=== PATIENT | female | born 1990 | race Caucasian/White ===

== ENCOUNTER 2016-05-26 17:32 | Emergency (ER) | payer MEDICARE, MEDICAID ==
[~2016-05-26] VITALS: Ht 165.1 cm; Wt 95.3 kg
[2016-05-26] MEDS ORDERED: OMEP20CA12 PO (18:01)
[2016-05-26] MEDS ORDERED: POLY17PO6 PO (18:01)
[2016-05-26] MEDS ORDERED: DOCU100C37 PO (18:01)
[2016-05-26] MEDS ORDERED: CETI10TA20 PO (18:04)
[2016-05-26] MEDS ORDERED: MELA3TAB PO (18:04)
[2016-05-26] MEDS ORDERED: CYAN1TAB26 PO (18:04)
--- NOTE | 2016-05-26 18:18 | ED Abdominal Pain ---
General Chief Complaint: Abdominal/GI Problems Stated Complaint: CP Nursing Triage Note: AMBULATED TO ROOM 03 WITH COMPLAINTS OF EPIGASTRIC PAIN X1 HR THAT SOMETIMES GOES INTO BACK. 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 Sepsis Screen: No Definite Risk (BRENDAN LEWIS) History of Present Illness Time Seen By Provider: 17:55 Initial Comments Pt and caregiver report of episode of tachycardia and palpitations prior to arrival. She calmed down after being distracted with reading the paper. She has had 2 recent deaths in her family and experiencing more anxiety. She has been under the care of [facility] for the last month. She has a 24-hour caregiver support. Timing/Duration: 1 Hour Severity/Quality: Mild Location: Epigastric Radiation: No Radiation Activities at Onset: Emotional Stress Modifying Factors: Improves With Other (distraction) Associated Symptoms: Denies Symptoms (BRENDAN LEWIS) Allergies and Home Medications Allergies Coded Allergies: No Known Drug Allergies (Unverified , 05/26/16) Home Medications Cetirizine HCl 10 Mg Tablet 10 MG PO DAILY (Reported) Cyanocobalamin/Folic Acid 1 Each Tablet 1 EACH PO DAILY (Reported) Docusate Sodium 100 Mg Capsule 100 MG PO BID (Reported) Melatonin 3 Mg Tablet 3 MG PO HS (Reported) Omeprazole 20 Mg Capsule.dr 20 MG PO DAILY (Reported) Polyethylene Glycol 3350 17 Gm Powd.pack 17 GM PO DAILY (Reported) Review of Systems Constitutional: no symptoms reported see HPI EENTM: No Symptoms Reported See HPI Respiratory: No Symptoms Reported See HPI Cardiovascular: See HPI Palpitations Gastrointestinal: No Symptoms Reported See HPI Genitourinary: No Symptoms Reported See HPI Musculoskeletal: no symptoms reported see HPI Skin: no symptoms reported see HPI Psychiatric/Neurological: See HPI Anxiety Endocrine: No Symptoms Reported See HPI Hematologic/Lymphatic: No Symptoms Reported See HPI (BRENDAN LEWIS) All Other Systems Reviewed Negative Unless Noted: Yes (BRENDAN LEWIS) Past Jqqaklt-Unbknv-Vtgdqo Hx Patient Social History Recent Foreign Travel: No Contact w/Someone Who Travel: No Recent Infectious Disease Expo: No Recent Hopitalizations: No (BRENDAN LEWIS) Surgeries HX Surgeries: Yes Surgeries: Orthopedic (BRENDAN LEWIS) Respiratory Hx Respiratory Disorders: No (BRENDAN LEWIS) Neurological Hx Neurological Disorders: No (BRENDAN LEWIS) Reproductive System Hx Reproductive Disorders: 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 (BRENDAN LEWIS) Genitourinary Hx Genitourinary Disorders: No (BRENDAN LEWIS) Gastrointestinal Hx Gastrointestinal Disorders: Yes Gastrointestinal Disorders: Gastroesophageal Reflux (BRENDAN LEWIS) HEENT HX ENT Disorders: No (BRENDAN LEWISP) Cancer Hx Cancer: No (BRENDAN LEWISP) Psychosocial Hx Psychiatric Problems: Yes (EXPLOSIVE DISORDER, SLIGHT MR) Behavioral Health Disorders: Bipolar, Personality Disorder (BRENDAN LEWISP) Reviewed Nursing Assessment Reviewed/Agree w Nursing PMH: Yes (BRENDAN LEWISP) Physical Exam Vital Signs VS - Last 72 Hours, by Label 05/26/16 05/26/16 17:46 18:23 Temp 97.0 Pulse 96 91 Resp 18 18 B/P 133/85 Pulse Ox 99 97 (RANDI WILSON MD) Vital Signs Capillary Refill : Less Than 3 Seconds (BRENDAN LEWISP) General Appearance: WD/WN no apparent distress HEENT: PERRL/EOMI normal ENT inspection TMs normal pharynx normal Neck: non-tender full range of motion supple normal inspection Respiratory: chest non-tender lungs clear normal breath sounds no respiratory distress Cardiovascular: normal peripheral pulses regular rate, rhythm no murmur Gastrointestinal: normal bowel sounds non tender soft no organomegaly no pulsatile massNo distended, No guarding, No tenderness Extremities: normal range of motion non-tender normal inspection no pedal edema no calf tenderness normal capillary refill Back: normal inspection no CVA tenderness Neurologic/Psychiatric: no motor/sensory deficits alert normal mood/affect Skin: normal color warm/dry Lymphatic: no adenopathy (BRENDAN LEWIS) Progress/Results/Core Measures Results/Orders Vital Signs/I&O Vital Sign - Last 12Hours 05/26/16 05/26/16 17:46 18:23 Temp 97.0 Pulse 96 91 Resp 18 18 B/P 133/85 Pulse Ox 99 97 (RANDI WILSON MD) Blood Pressure Mean: 101 ECG EKG : EKG Time: 18:01 Rate: 87 Rhythm: Normal Sinus Intervals: Normal, MA (136), QRS (90), QT (376) Intervals [place]: P 18; QRS 24; T 28 ECG Comparisson: No Previous ECG Available ECG Impression: Normal Comment Reviewed with Dr. Pritchard, agrees with interpretation. (BRENDAN LEWIS) EKG : Comment 05/26/16, 1801. NSR, nl axis, no STEMI. no previous for comparison. (RANDI WILSON MD) Departure Impression Impression: Primary Impression: Heart palpitations Additional Impression: Anxiety Disposition: 01 HOME, SELF-CARE Condition: Stable Departure-Patient Inst. Decision time for Depature: 18:05 (BRENDAN LEWIS) Referrals: HIGINIO ENGEL MD (PCP/Family) Primary Care Physician Patient Instructions: Anxiety, Adult (DC), Palpitations (DC) Add. Discharge Instructions: All discharge instructions reviewed with patient and/or family. Voiced understanding. See Dr. Hopkins next week, if continued problems. See Mental Health later this month. Seek distraction activities to avoid or treat anxiety attacks. Copy Copies To 1: HIGINIO ENGEL MD, AMY ARNP May 26, 2016 18:18 RANDI WILSON MD May 29, 2016 09:01
[2016-05-26 18:23] VITALS: BP 127/81
== END 2016-05-26 18:23 | disposition home or self-care (01) ==
LOC: EDUNIT# 17:32 → ER 17:33
DX: R00.2 Palpitations (principal); F41.9 Anxiety disorder, unspecified
CPT/HCPCS: 93005; 99282

== ENCOUNTER → 2018-05-22 | Outpatient (CLI) | payer MEDICARE, MEDICAID ==
[~2018-05-22] MED LIST: CETI10TA20 PO; CYAN1TAB26 PO; DOCU100C37 PO; MELA3TAB PO; OMEP20CA12 PO; POLY17PO6 PO
--- NOTE | 2018-05-22 20:30 | Diagnostic Imaging Report ---
EXAM: Limited bilateral breast ultrasound INDICATION: Galactorrhea The previous left breast limited ultrasound exam of 04/27/2016 failed to show any evidence for a discrete solid or cystic mass. On this exam, there is no solid or cystic mass evident in either retroareolar region. The ducts in the retroareolar region do not seem to be abnormally dilated either. If clinical concern regarding an underlying abnormality persists, then mammography would be recommended for further evaluation. IMPRESSION: 1. There is no evidence for malignancy or for any abnormality to account for the patient's symptoms. 2. If clinical concern regarding an underlying abnormality persists and further imaging is desired, then MRI would be recommended. ACR BI-RADS Category 1: Negative. Result letter will be mailed to the patient. Note: At least 10% of breast cancer is not imaged by mammography. Dictated by: Dictated on workstation # [id number]
== END ==
LOC: RAD 13:13
PROVIDERS: ATTEND Family Medicine
DX: N64.3 Galactorrhea not associated with childbirth (principal)
CPT/HCPCS: 76642

== ENCOUNTER → 2019-01-21 | Outpatient (CLI) | payer MEDICARE, MEDICAID ==
[~2019-01-21] MED LIST changes: -OMEP20CA12 PO; +OMEP20CA13 PO
--- NOTE | 2019-01-21 19:05 | Diagnostic Imaging Report ---
EXAMINATION: Right elbow radiographs, 3 views. COMPARISON: None. HISTORY: 28-year-old female, injury. Right elbow pain. FINDINGS: There is film artifact present. There is no elbow joint effusion. There is no elbow joint dislocation currently. There is no identified acute fracture. IMPRESSION: No acute bony abnormality of the right elbow. Dictated by: Dictated on workstation # [id number]
--- NOTE | 2019-01-21 19:06 | Diagnostic Imaging Report ---
EXAMINATION: Right wrist radiographs, 3 views. COMPARISON: None. HISTORY: 28-year-old female, injury. Right wrist pain. FINDINGS: There is no identified acute fracture. Bone mineralization and alignment is unremarkable. There is no radiopaque foreign body. The joint spaces are well preserved. IMPRESSION: No identified acute bony abnormality at the level of the right wrist. Dictated by: Dictated on workstation # [id number]
--- NOTE | 2019-01-21 19:07 | Diagnostic Imaging Report ---
EXAMINATION: Right forearm, 2 views. COMPARISON: None. HISTORY: 28-year-old female, right forearm pain. Injury. FINDINGS: There is film artifact present. There is no identified acute fracture at the level of the forearm. There is no identified radiopaque foreign body. IMPRESSION: No identified acute bony abnormality at the level of the right forearm. Dictated by: Dictated on workstation # [id number]
== END ==
LOC: RAD 17:31
PROVIDERS: ATTEND Nurse Practitioner Family
DX: S59.901A Unspecified injury of right elbow, initial encounter (principal); S59.911A Unspecified injury of right forearm, initial encounter; S69.91XA Unspecified injury of right wrist, hand and finger(s), initial encounter; W19.XXXA Unspecified fall, initial encounter
CPT/HCPCS: 73080; 73090; 73110

== ENCOUNTER 2019-12-07 18:57 | Emergency (ER) | payer MEDICARE, MEDICAID ==
[~2019-12-07] VITALS: Ht 165 cm; Wt 113.6 kg
[~2019-12-07 18:57] MED LIST changes: -CETI10TA20 PO; +CETI10TA21 PO; -MELA3TAB PO; +MELA3TAB39 PO; -OMEP20CA13 PO; +OMEP20CA18 PO
--- OUTSIDE RECORDS SUMMARY | 2019-12-07 19:02 | XMS REPORT | Encounter Summary ---
Author Author [facility] Organization [facility] Address Unknown Phone Unavailable Care Team Providers Care Explosive Ordnance Manager Name Role Phone PCP Unavailable Encounter Details Care Team Description Date Type Department Iqra Armstrong MD [address] [place] [address] [facility] [address] [place] [address] Social History Date Tobacco Use Types Packs/Day Years Used Never Assessed Sex Assigned at Date Recorded Not on file Industry Job Start Date Occupation Not on file Not on file Not on file Travel End Travel History Travel Start No recent travel history available. documented as of this encounter Plan of Treatment Not on filedocumented as of this encounter Procedures Comments Procedure Name Priority Date/Time Associated Diag nosis LIPID PROFILE SG Routine 07/09/2004 8:18 AM ARMY MANAGER DRUG PANEL 7 Routine 07/09/2004 8:18 AM ARMY MANAGER DIFFERENTIAL Routine 07/09/2004 8:18 AM ARMY MANAGER URINE TEST Routine 07/09/2004 8:18 AM ARMY MANAGER URINALYSIS (INCLUDES Routine 07/09/2004 MICROSCOPIC REVIEW, IF 8:18 AM ARMY MANAGER INDICATED) VALPROIC ACID Routine 07/09/2004 8:18 AM ARMY MANAGER THYROID CASCADE Routine 07/09/2004 8:18 AM ARMY MANAGER GLUCOSE Routine 07/09/2004 8:18 AM ARMY MANAGER GAMMA GLUTAMYL Routine 07/09/2004 TRANSFERASE 8:18 AM ARMY MANAGER CREATININE Routine 07/09/2004 8:18 AM ARMY MANAGER COMPLETE BLOOD COUNT Routine 07/09/2004 8:18 AM ARMY MANAGER ALANINE AMINOTRANSFERASE Routine 07/09/2004 8:18 AM ARMY MANAGER documented in this encounter Results * Valproic Acid (07/09/2004 8:18 AM ARMY MANAGER) Valproic Acid 75 50 - 100 UG/ML SUNQUEST Specimen Blood Performing Organization Address [facility] one Number [id number] [place] [phone] SUNQUEST * Creatinine (07/09/2004 8:18 AM ARMY MANAGER) Creatinine 0.6 0.5 - 1.5 MG/DL SUNQUEST Specimen Blood Performing Organization Address [facility] one Number SLRL [id number] [place] [phone] SUNQUEST * DIFFERENTIAL (07/09/2004 8:18 AM ARMY MANAGER) % Neutrophils 48 45 - 78 % SUNQUEST %Lymphocytes 37 15 - 47 % SUNQUEST %Monocytes 8 0 - 12 % SUNQUEST %Eosinophils 6 0 - 7 % SUNQUEST %Basophils 1 0 - 2 % SUNQUEST # Granulocytes 3.4 1.7 - 6.8 TH/UL SUNQUEST # Lymphocytes 2.6 1.0 - 3.3 TH/UL [place] # Monocytes 0.6 0.2 - 0.9 TH/UL [place]QUEST # Eosinophils 0.4 0.0 - 0.4 TH/UL [place] # Basophils 0.1 0.0 - 0.2 TH/UL SUNQUEST Specimen Blood Performing Organization Address [facility] one Number [id number] [place] [phone] SUNQUEST * Complete Blood Count (07/09/2004 8:18 AM ARMY MANAGER) WBC 7.0 4.0 - 11.0 TH/UL SUNQUEST RBC 4.88 4.31 - 5.84 MIL/UL SUNQUEST Hemoglobin 14.8 13.0 - 17.0 G/DL SUNQUEST Hematocrit 42 40 - 50 % SUNQUEST MCV 86 80 - 99 FL SUNQUEST MCH 30 27 - 34 PG SUNQUEST MCHC 35 32 - 36 % SUNQUEST RDW 13.1 <14.5 % SUNQUEST Platelet Count 250 140 - 400 TH/UL SUNQUEST Specimen Blood Performing Organization Address [facility] one Number [id number] [place] [phone] SUNQUEST * Gamma Glutamyl Transferase (07/09/2004 8:18 AM ARMY MANAGER) Gamma Glutamyl 16 15 - 80 IU/L SUNQUEST Transferase Specimen Blood Performing Organization Address [facility] one Number [address]RL [id number] [place] [phone] SUNQUEST * Alanine Aminotransferase (07/09/2004 8:18 AM ARMY MANAGER) Alanine 18 (L) 20 - 60 IU/L SUNQUEST Aminotransferas e Specimen Blood Performing Organization Address [facility] one Number [address]RL [id number] [place] [phone] SUNQUEST * Thyroid [place] (07/09/2004 8:18 AM ARMY MANAGER) Thyroid 3.34 0.35 - 5.50 UIU/ML SUNQUEST Stimulating Hormone Specimen Blood Performing Organization Address [facility] one Number SLRL [id number] [place] [phone] SUNQUEST * Glucose (07/09/2004 8:18 AM ARMY MANAGER) Glucose 75 65 - 100 MG/DL SUNQUEST Specimen Blood Performing Organization Address [facility] one Number SLRL [id number] [place] [phone] SUNQUEST * Lipid Profile Sg (07/09/2004 8:18 AM ARMY MANAGER) Cholesterol 161 <200 MG/DL SUNQUEST Triglycerides 61 <150 MG/DL SUNQUEST HDL Cholesterol 39 (L) >41 MG/DL SUNQUEST Cholesterol/HDL 4.1 <4.5 SUNQUEST Ratio Hours 13 SUNQUEST Postprandial LDL Cholesterol 110 (H) 0 - 99 MG/DL SUNQUEST Specimen Performing Organization Address [facility] one Number [address]RL [id number] [place] [phone] SUNQUEST * Drug Panel 7 (07/09/2004 8:18 AM ARMY MANAGER) Amphetamines NotDetec SUNQUEST Urine Barbiturates NotDetec SUNQUEST Urine Benzodiazepines NotDetec SUNQUEST Urine Cocaine Urine NotDetec SUNQUEST Opiates Urine NotDetec SUNQUEST Phencyclidine NotDetec SUNQUEST Urine Tetrahydrocanna NotDetec SUNQUEST binol Urine Tape N/A SUNQUEST Creatinine 71.3 MG/DL SUNQUEST Urine Random Specimen Urine Performing Organization Address [facility] Ph one Number [id number] [place], [place] [address] SUNQUEST * Urinalysis (07/09/2004 8:18 AM ARMY MANAGER) Appearance, YELLOW SUNQUEST Urine Specific 1.015 <1.030 SUNQUEST [place], UA PH Urine 8.0 5.0 - 8.0 SUNQUEST Hemoglobin NEGATIVE NEGATIVE [place]QUEST Urine Ketones Urine NEGATIVE NEGATIVE SUNQUEST Glucose Urine NEGATIVE NEGATIVE SUN[place] Protein Urine NEGATIVE NEGATIVE SUNQUEST Qual Leukocyte NEGATIVE NEGATIVE [place] Esterase Urobilinogen NEGATIVE NEGATIVE SUNQUEST Urine Bilirubin Urine NEGATIVE NEGATIVE SUNQUEST Specimen Urine Performing Organization Address [facility] Ph one Number [id number] [place], [place] [address] SUNQUEST * Urine Test (07/09/2004 8:18 AM ARMY MANAGER) UCG Urine NEGATIVE SUNQUEST Specimen Urine Performing Organization Address [facility] one Number [facility] [id number] [place], [place] [address] SUNQUEST documented in this encounter Visit Diagnoses Not on filedocumented in this encounter
--- OUTSIDE RECORDS SUMMARY | 2019-12-07 19:02 | XMS REPORT | Clinical Summary ---
Author Author [facility] Organization [facility] Address Unknown Phone Unavailable Care Team Providers Care Digital Sales Manager Name Role Phone PCP Unavailable Allergies Not on File Medications Not on file Active Problems Not on file Social History Date Tobacco Use Types Packs/Day Years Used Never Assessed Sex Assigned at Date Recorded Not on file Industry Job Start Date Occupation Not on file Not on file Not on file Travel End Travel History Travel Start No recent travel history available. Last Filed Vital Signs Not on file Plan of Treatment Not on file Results Not on filefrom Last 3 Months
--- OUTSIDE RECORDS SUMMARY | 2019-12-07 19:02 | XMS REPORT | Encounter Summary ---
Author Author [facility] Organization [facility] Address Unknown Phone Unavailable Care Team Providers Care Horse Show Judge Name Role Phone PCP Unavailable Encounter Details Care Team Description Date Type Department Jessy Warren MD No Forwarding Address 09/02/2004 [facility] al Encounter [address] [place] [address] Social History Date Tobacco Use Types Packs/Day [...] Associated Diag nosis LIPID PROFILE SG Routine 09/02/2004 8:21 AM CDT DRUG PANEL 7 Routine 09/02/2004 8:21 AM CDT DIFFERENTIAL Routine 09/02/2004 8:21 AM CDT URINE TEST Routine 09/02/2004 8:21 AM CDT URINALYSIS AND Routine 09/02/2004 MICROSCOPIC 8:21 AM CDT URINALYSIS (INCLUDES Routine 09/02/2004 MICROSCOPIC REVIEW, IF 8:21 AM CDT INDICATED) THYROID CASCADE Routine 09/02/2004 8:21 AM CDT GLUCOSE Routine 09/02/2004 8:21 AM CDT GAMMA GLUTAMYL Routine 09/02/2004 TRANSFERASE 8:21 AM CDT CREATININE Routine 09/02/2004 8:21 AM CDT COMPLETE BLOOD COUNT Routine 09/02/2004 8:21 AM CDT ALANINE AMINOTRANSFERASE Routine 09/02/2004 8:21 AM CDT documented in this encounter Results * DIFFERENTIAL (09/02/2004 8:21 AM CDT) % Neutrophils 67 45 - 78 % SUNQUEST %Lymphocytes 25 15 - 47 % SUNQUEST %Monocytes 6 0 - 12 % SUNQUEST %Eosinophils 2 0 - 7 % SUNQUEST %Basophils 0 0 - 2 % SUNQUEST # Granulocytes 5.0 1.7 - 6.8 TH/UL SUNQUEST # Lymphocytes 1.9 1.0 - 3.3 TH/UL SUNQUEST # Monocytes 0.5 0.2 - 0.9 TH/UL SUNQUEST # Eosinophils 0.2 0.0 - 0.4 TH/UL SUNQUEST # Basophils 0.0 0.0 - 0.2 TH/UL SUNQUEST Specimen Blood Performing Organization Address [facility] one Number RL [address] [place] [phone] SUNQUEST * Creatinine (09/02/2004 8:21 AM CDT) Creatinine 0.4 (L) 0.5 - 1.5 MG/DL SUNQUEST Specimen Blood Performing Organization Address [facility] one Number [address]RL [id number] [place] [phone] SUNQUEST * Complete Blood Count (09/02/2004 8:21 AM CDT) WBC 7.5 4.0 - 11.0 TH/UL SUNQUEST RBC 4.52 4.31 - 5.84 MIL/UL SUNQUEST Hemoglobin 13.6 13.0 - 17.0 G/DL SUNQUEST Hematocrit 39 (L) 40 - 50 % SUNQUEST MCV 87 80 - 99 FL SUNQUEST MCH 30 27 - 34 PG SUNQUEST MCHC 35 32 - 36 % SUNQUEST RDW 12.9 <14.5 % SUNQUEST Platelet Count 317 140 - 400 TH/UL SUNQUEST Specimen Blood Performing Organization Address [facility] one Number [address]RL [id number] [place] [address] SUNQUEST * Alanine Aminotransferase (09/02/2004 8:21 AM CDT) Alanine 20 20 - 60 IU/L SUNQUEST Aminotransferas e Specimen Blood Performing Organization Address [facility] Ph one Number [id number] [place] [address] SUNQUEST * Gamma Glutamyl Transferase (09/02/2004 8:21 AM CDT) Gamma Glutamyl 17 15 - 80 IU/L SUNQUEST Transferase Specimen Blood Performing Organization Address [facility] one Number [address]RL [id number] [place] [address] SUNQUEST * Thyroid [place] (09/02/2004 8:21 AM CDT) Thyroid 2.39 0.35 - 5.50 UIU/ML SUNQUEST Stimulating Hormone Specimen Blood Performing Organization Address [facility] one Number [address]RL [address] [place] [address] SUNQUEST * Glucose (09/02/2004 8:21 AM CDT) Glucose 79 65 - 100 MG/DL SUNQUEST Specimen Blood Performing Organization Address [facility] one Number [address]RL [address] [place] [address] SUNQUEST * Lipid Profile Sg (09/02/2004 8:21 AM CDT) Cholesterol 157 <200 MG/DL SUNQUEST Triglycerides 68 <150 MG/DL SUNQUEST HDL Cholesterol 49 >41 MG/DL SUNQUEST Cholesterol/HDL 3.2 <4.5 SUNQUEST Ratio LDL Cholesterol 94 0 - 99 MG/DL SUNQUEST Specimen Performing Organization Address [facility] one Number [address]RL [address] [place] [phone] SUNQUEST * Urinalysis (09/02/2004 8:21 AM CDT) Appearance, YELLOW SUNQUEST Urine Specific 1.025 <1.030 SUNQUEST [place], UA PH Urine 6.0 5.0 - 8.0 SUNQUEST Hemoglobin NEGATIVE NEGATIVE SUNQUEST Urine Ketones Urine NEGATIVE NEGATIVE [place]QUEST Glucose Urine NEGATIVE NEGATIVE [place]QUEST Protein Urine NEGATIVE NEGATIVE SUNQUEST Qual Leukocyte POSITIVE (A) NEGATIVE SUNQUEST Esterase Urobilinogen NEGATIVE NEGATIVE SUNQUEST Urine Bilirubin Urine NEGATIVE NEGATIVE SUNQUEST Specimen Urine Performing Organization Address [facility] one Number [address]RL [address] [place], [place] [address] SUNQUEST * Drug Panel 7 (09/02/2004 8:21 AM CDT) Amphetamines NotDetec SUNQUEST Urine Barbiturates NotDetec SUNQUEST Urine Benzodiazepines NotDetec SUNQUEST Urine Cocaine Urine NotDetec SUNQUEST Opiates Urine NotDetec SUNQUEST Phencyclidine NotDetec SUNQUEST Urine Tetrahydrocanna NotDetec SUNQUEST binol Urine Tape N/A SUNQUEST Creatinine 186.4 MG/DL SUNQUEST Urine Random Specimen Urine Performing Organization Address [facility] one Number [facility]RL [address] [place], [place] [address] SUNQUEST * Urine Test (09/02/2004 8:21 AM CDT) UCG Urine POSITIVE (A) NEGATIVE SUNQUEST Specimen Urine Performing Organization [facility] Ph one Number SLRL [address] [place], [place] [address] SUNQUEST * Urinalysis and Microscopic (09/02/2004 8:21 AM CDT) MICROSCOPIC DONE SUNQUEST Microscopic WBC 6-10 (A) <6 SUNQUEST Urine Mucus SMALL (A) NEGATIVE SUNQUEST Epithelial SMALL (A) NEGATIVE SUNQUEST Cells Specimen Urine Performing Organization Address [facility] Ph one Number [address]RL [address] [place], [place] [address] SUNQUEST documented in this encounter Visit Diagnoses Not on filedocumented in this encounter
--- OUTSIDE RECORDS SUMMARY | 2019-12-07 19:03 | XMS REPORT ---
Author Author Asker. relief mate [email or web address]. [facility] Address [address] [address] Care Team Providers Care Manager Assisted Living Name Role Phone HIGINIO MOBLEY Unavailable HEENA, SABI Unavailable ROSE, DAWNY Unavailable HEENA, SABI Unavailable ROSE, DAWNY Unavailable DORCAS NEGRETE Unavailable ROYER GARCIA Unavailable Unavailable ROSE, DAWNY Unavailable DORCAS NEGRETE ANN Unavailable DORCAS NEGRETE ANN Unavailable DORCAS NEGRETE ANN Unavailable DORCAS NEGRETE ANN Unavailable ROYER GARCIA Unavailable Unavailable GAGAN PALMER Unavailable DORCAS NEGRETE ANN Unavailable DORCAS NEGRETE ANN Unavailable DORCAS NEGRETE ANN Unavailable DORCAS NEGRETE ANN Unavailable ROSE, DAWNY Unavailable DORCAS NEGRETE ANN Unavailable DORCAS NEGRETE ANN Unavailable DORCAS NEGRETE ANN Unavailable ROYER GARCIA Unavailable Unavailable ROSE, DAWNY Unavailable DORCAS NEGRETE ANN Unavailable DORCAS NEGRETE ANN Unavailable DORCAS NEGRETE ANN Unavailable DEBBIE ROBLEDO Unavailable DORCAS NEGRETE Unavailable DORCAS NEGRETE Unavailable DORCAS NEGRETE Unavailable DORCAS NEGRETE ANN Unavailable ROSE, DAWNY Unavailable DORCAS NEGRETE Unavailable RADHA ROYER Unavailable Unavailable ROSE, DAWNY Unavailable THAIS CAROLEE Unavailable DORCAS NEGRETE Unavailable MOBLEY, HIGINIO Unavailable Unavailable HIGINIO MOBLEY Unavailable Unavailable HIGINIO MOBLEY Unavailable Unavailable ROMERO, JOE Unavailable Unavailable ROMERO, JOE Unavailable Unavailable ROMERO, JOE Unavailable Unavailable ROMERO, CECY S HIDE DROPPER Unavailable Unavailable JOSHUA, BRENDAN HIDE DROPPER Unavailable Unavailable AUGIE YUAN MD Unavailable Unavailable Trish Mobley Unavailable Unavailable DORCAS NEGRETE Unavailable BATTAGLER, DAVID Unavailable Unavailable JOSE, CORRINA Unavailable Unavailable JOSE, CORRINA Unavailable Unavailable ROMERO, CECY S HIDE DROPPER Unavailable Unavailable HIGINIO MOBLEY MD Unavailable Unavailable Mobley, Higinio Unavailable Unavailable JOSHUA, BRENDAN HIDE DROPPER Unavailable Unavailable DORCAS NEGRETE Unavailable SILVESTRE, CHANDROUTIE Unavailable Unavailable SILVESTRE, CHANDROUTIE Unavailable Unavailable SILVESTRE, CHANDROUTIE Unavailable Unavailable DORCAS NEGRETE Unavailable BROWN, QUINN Unavailable Unavailable PAONI, SAGRARIO Unavailable Unavailable PAONI, SAGRARIO Unavailable Unavailable ROBLEDO, DEBBIE Unavailable BROWN, QUINN Unavailable Unavailable BROWN, QUINN Unavailable Unavailable Unavailable Unavailable Unavailable Unavailable Unavailable Unavailable Unavailable Unavailable Unavailable Unavailable Unavailable Unavailable Unavailable Unavailable Allergies Allergy Reported Allergen(s) Allergy Type Date of Reaction(s) Care Facility Classificati Onset Provider on Unclassified No Known Drug Allergies DA 05-26-2016 CECY LARKIN [facility] Via (1 source) [facility] ([id number]) Encounters Encounter Date Encounter Type Encounter Diagnosis Care Provider Facility Start: Patient encounter [facility]in[facility] Start[facility] Patient encounter [facility] Di strict #1 11-15-2019 procedure of [facility] End: 11-15-2019 Start: Patient encounter [facility] Di strict #1 10-22-2019 procedure of [facility] Start[facility] Patient encounter [facility] 10-16-2019 procedure [facility] Start: Patient encounter [facility] 10-09-2019 procedure [facility] Start: Patient encounter [facility] Di strict #1 09-24-2019 procedure of [facility] End: 10-17-2019 Start: Patient encounter [facility] Di strict #1 09-21-2019 procedure of [facility] End: 09-21-2019 Start: Patient encounter [facility] Di strict #1 09-20-2019 procedure of [facility] End: 09-20-2019 Start: Patient encounter [facility] Di strict #1 08-08-2019 procedure of [facility] End: 08-08-2019 Start: [facility] 07-23-2019 [facility] Start: Patient encounter [facility] 07-17-2019 procedure [facility] Start: [facility] functioning [facility] Intermittent DAWNY ROSE [facility] 07-17-2019 explosive disorder Start: Patient encounter [facility] #1 07-11-2019 procedure of [facility] End: 07-12-2019 Start: Patient encounter [facility] #1 07-04-2019 procedure of [facility] End[facility] 07-04-2019 [facility] 07-03-2019 intellectual functioning Start: Patient encounter [facility] Di strict #1 07-01-2019 procedure of [facility] End: 07-01-2019 Start: [facility] Disorder of teeth and ROYER JOHNSO N [facility] 06-24-2019 [facility] PRANEETH structures, unspecified Start: Patient encounter [facility] 06-19-2019 [facility] Start: [facility] Borderline [facility]2019 intellectual functioning Start: Patient encounter [facility] Di strict #1 06-11-2019 procedure of [facility] ([id number]) End: 06-11-2019 Start: [facility] Borderline A[facility] 06-05-2019 intellectual functioning Start: [facility] Intermittent DORCAS NEGRETE [facility] 06-04-2019 explosive disorder Start: Patient encounter [facility] #1 05-30-2019 procedure of [facility] ([id number]) End: 05-30-2019 Start: Patient encounter [facility] Di strict #1 05-22-2019 procedure of [facility] ([id number]) End: 05-22-2019 Start: [facility] Ricardo NEGRETE [facility] 05-21-2019 explosive disorder Start: Patient encounter [facility] 05-21-2019 procedure [facility] ([id number]) Start: [facility] Intermittent DORCAS NEGRETE [facility] 05-15-2019 explosive disorder Start: [facility] Acute [facility] 05-07-2019 CARE respiratory CARE infection, unspecified Start: Patient encounter [facility] Di strict #1 04-28-2019 procedure of [facility] ([id number]) End: 04-29-2019 Start: Patient encounter [facility] 04-24-2019 [facility] ([id number]) Start[facility] Borderline ASH[facility] 04-24-2019 intellectual functioning Start: [facility] Intermittent ROCAMINAH [facility] 04-23-2019 explosive disorder Start: Patient encounter [facility] Di strict #1 04-22-2019 procedure of [facility] ([id number]) End: 04-23-2019 Start: Patient encounter [facility] Di strict #1 04-15-2019 procedure of [facility] ([id number]) End: 04-15-2019 Start: [facility] Borderline [facility] 04-10-2019 intellectual functioning Start: Patient encounter [facility] Di strict #1 04-10-2019 procedure of [facility] ([id number]) End: 04-10-2019 Start: [facility] Intermittent DORCAS NEGRETE [facility] 04-09-2019 explosive disorder Start: Patient encounter [facility] 04-03-2019 procedure [facility] ([id number]) Start[facility] Intermittent DAWSUKHWINDER KANGROSE [facility] 04-03-2019 explosive disorder Start: [facility] Borderline [facility] 03-27-2019 intellectual functioning Start: [facility] Borderline [facility] 03-13-2019 intellectual functioning Start: OUTREACH [facility] Encounter for dental CLEO STIELSA OUTREACH [facility] 03-13-2019 [facility] examination and [facility] ENTAL cleaning without abnormal findings Start: [facility] Borderline [facility] 03-06-2019 intellectual functioning Start: [facility] Intermittent DORCAS NEGRETE [facility] 03-05-2019 explosive disorder Start: Patient encounter [facility] 02-27-2019 procedure [facility] ([id number]) Start: [facility] Borderline [facility] 02-27-2019 intellectual functioning Start: [facility] Borderline [facility] 02-20-2019 intellectual functioning Start: Patient encounter [facility] 02-13-2019 procedure [facility] ([id number]) Start: [facility] Borderline [facility] 02-13-2019 intellectual functioning Start: [facility]termittent [facility] 02-06-2019 explosive disorder Start: [facility] Unspecified mood ASHLEY NAYELI N [facility] 01-30-2019 [affective] disorder Start: Patient encounter [facility] Di strict #1 01-29-2019 procedure of [facility] ([id number]) End: 01-29-2019 Start: Patient encounter [facility] #1 01-28-2019 procedure of [facility] ([id number]) End: 01-30-2019 Start: Patient encounter [facility] Di strict #1 01-28-2019 procedure of [facility] ([id number]) Start: Patient encounter [facility] 01-26-2019 procedure [facility] ([id number]) Start: [facility] Candidiasis, STEVE CONCHIS [facility] 01-26-2019 CARE unspecified CARE Start: Patient encounter [facility] 01-26-2019 procedure [facility] ([id number]) Start: Patient encounter CECY ROMERO [facility] Via [facility] isti 01-21-2019 procedure [facility] ([id number]) [facility]: [facility] 01-21-2019 procedure of [facility] ([id number]) End: 01-22-2019 Start: [facility] Start: [facility] Intermittent ASHLEY Handley [facility] 01-16-2019 explosive disorder Start: [facility] Intermittent DORCAS NEGRETE [facility] 01-15-2019 explosive disorder Start: Patient encounter [facility] Di strict #1 01-14-2019 procedure of [facility] ([id number]) End: 01-15-2019 Start: Patient encounter [facility] 01-04-2019 procedure [facility] ([id number]) Start: Patient encounter [facility] 01-04-2019 [facility] ([id number]) Start: [facility] Intermittent [facility] 01-04-2019 explosive disorder Start: [facility] DOTHANSUKHWINDER [facility] 01-04-2019 Start: Telephone encounter CASTROSUKHWINDER KANGROSE [facility] 12-21-2018 Start: Patient encounter [facility] 12-19-2018 procedure [facility] ([id number]) Start: [facility] Intermittent ASHLEY Handley [facility] 12-19-2018 explosive disorder Start: [facility] Intermittent DORCAS NEGRETE [facility] 12-18-2018 explosive disorder Start: Patient encounter [facility] 12-18-2018 procedure [facility] ([id number]) Start: Patient encounter [facility] 12-11-2018 procedure [facility] ([id number]) Start: [facility] Intermittent DORCAS NEGRETE [facility] 12-11-2018 explosive disorder Start: Patient encounter [facility] 12-05-2018 procedure [facility] ([id number]) Start: [facility] Intermittent ASHLEY Handley [facility] 12-05-2018 explosive disorder Start: OUTREACH [facility] Disorder of teeth and ROYER JOHNSO N OUTREACH [facility] 11-27-2018 [facility] DEN PRANEETH structures, unspecified Start: Telephone encounter [facility] 11-27-2018 Start: Patient encounter [facility] 11-21-2018 procedure [facility] ([id number]) Start: [facility] Unspecified mood ASHLEY TYLER N [facility] 11-21-2018 [affective] disorder Start: Patient encounter [facility] 11-20-2018 procedure [facility] ([id number]) Start: [facility] Intermittent DORCAS NEGRETE [facility] 11-20-2018 explosive disorder Start: [facility] Intermittent CASTROSUKHWINDER KANGROSE [facility] 11-07-2018 explosive disorder End: 11-07-2018 Start: Patient encounter [facility] 11-07-2018 procedure [facility] ([id number]) Start: [facility] Intermittent DORCAS HERNANDEZHONORHEALTH [facility] 11-06-2018 explosive disorder End: 11-06-2018 Start: Patient encounter [facility] 11-06-2018 procedure [facility] ([id number]) Start: [facility] Ricardo NEGRETE [facility] 10-23-2018 explosive disorder End: 10-23-2018 Start: Patient encounter [facility] 10-23-2018 procedure [facility] ([id number]) Start: [facility] Intermittent CASTROSUKHWINDER KANGROSE [facility] 10-03-2018 explosive disorder End: 10-03-2018 Start: Patient encounter [facility] 10-03-2018 procedure [facility] ([id number]) Start: [facility] Intermittent DORCAS HERNANDEZHONORHEALTH [facility]SD[facility]ENTERPatrick [facility] 09-25-2018 explosive disorder End: 09-25-2018 Start: Patient encounter [facility] 09-25-2018 procedure [facility] ([id number]) Start: Patient encounter [facility] Di strict #1 09-03-2018 procedure of [facility] ([id number]) End: 09-04-2018 Start: Patient encounter [facility] Di strict #1 08-28-2018 procedure of [facility] ([id number]) End: 08-29-2018 Start: [facility] Intermittent DORCAS HERNANDEZHONORHEALTH [facility]ENTERPatrick [facility] 08-14-2018 explosive disorder End: 08-14-2018 Start: Patient encounter [facility] 08-14-2018 procedure [facility] ([id number]) Start: Patient encounter [facility] Di strict #1 08-09-2018 procedure of [facility] ([id number]) End: 08-10-2018 Start: Patient encounter [facility] Di strict #1 08-09-2018 procedure of [facility] ([id number]) End: 08-10-2018 Start: [facility] Intermittent DORCAS HERNANDEZHONORHEALTH SC[facility]SD[facility]ENTERPatrick [facility] 07-31-2018 explosive disorder End: 07-31-2018 Start: Patient encounter [facility] 07-31-2018 procedure [facility] ([id number]) Start: [facility] Disorder of teeth and DEBBIE BA RTON [facility] 07-25-2018 supporting structures, End: unspecified 07-25-2018 Start: Periodic oral DEBBIE MEENA [facility] 07-25-2018 evaluation Other Phone: [facility] ([id number]) Start: [facility] Intermittent DORCAS HERNANDEZHONORHEALTH SCOTTSD[facility]ENTERPatrick [facility] 07-17-2018 explosive disorder End: 07-17-2018 Start: Patient encounter [facility] 07-17-2018 [facility] ([id number]) Start: [facility] Intermittent ROCAMINAH HERNANDEZHONORHEALTH SC[facility]SD[facility] CENTERPatrick [facility] 07-04-2018 explosive disorder End: 07-04-2018 Start: [facility] Intermittent CASTROSUKHWINDER KANGROSE [facility] 07-04-2018 explosive disorder End: 07-04-2018 Start: Patient encounter [facility] 07-04-2018 procedure [facility] ([id number]) Start: [facility] Intermittent ROCAMINAH HERNANDEZHONORHEALTH SC[facility]SD[facility]Patrick [facility] 06-19-2018 explosive disorder End: 06-19-2018 Start: Patient encounter [facility] 06-19-2018 procedure [facility] ([id number]) Start: Patient encounter [facility] Bhumi august #1 06-04-2018 procedure of [facility] ([id number]) End: 06-05-2018 Start: [facility] Intermittent DORCAS HERNANDEZHONORHEALTH SC[facility]SD[facility]ENTERPatrick [facility] 05-29-2018 explosive disorder End: 05-29-2018 Start: Patient encounter [facility] 05-29-2018 procedure [facility] ([id number]) Start: Patient encounter HIGINIO jean ([id number]) 05-22-2018 procedure Start: Patient encounter HIGINIO MOBLEY MD [facility] Via Ro 05-22-2018 procedure [facility] ([id number]) Start: Patient encounter [facility] Di strict #1 05-18-2018 procedure of [facility] ([id number]) End: 05-19-2018 Start: Patient encounter [facility] Di strict #1 05-18-2018 procedure of [facility] ([id number]) End: 05-19-2018 Start: Patient encounter [facility] Di strict #1 05-07-2018 procedure of [facility] ([id number]) End: 05-08-2018 Start: Telephone encounter Intermittent DAWSUKHWINDER KANGROSE [facility] 05-07-2018 explosive disorder End: 05-07-2018 Start: Patient encounter [facility] strict #1 04-19-2018 procedure of [facility] ([id number]) End: 04-20-2018 Start: Patient encounter [facility] strict #1 04-19-2018 procedure of [facility] ([id number]) End: 04-20-2018 Start: Patient encounter [facility] 04-16-2018 procedure [facility] ([id number]) Start: [facility] Intermittent DORCAS NEGRETE [facility] 04-16-2018 explosive disorder End: 04-16-2018 Start: Patient encounter [facility] 04-10-2018 procedure [facility] ([id number]) Start: [facility] Residual foreign body CAROLEE ALLEN MCDONALD [facility] 04-10-2018 CARE in soft tissue CARE End: 04-10-2018 Start: Patient encounter [facility] 2018 procedure [facility] ([id number]) Start: [facility] 2018 explosive disorder End: 2018 Start: [facility] Encounter for dental ROYER Wagner [facility] 04-03-2018 DENTAL examination and DENTAL cleaning without End: abnormal findings 04-03-2018 Start: [facility] Intermittent DAWNY ROSE [facility] 02-28-2018 explosive disorder End: 02-28-2018 Start: [facility] Intermittent ROCAMINAH HERNANDEZHONORHEALTH [facility]Patrick [facility] 02-27-2018 explosive disorder End: 02-27-2018 Start: Patient encounter [facility] Bhumi strict #1 02-13-2018 procedure of [facility] ([id number]) End: 02-14-2018 Start: [facility] Intermittent ROCAMINAH HERNANDEZHONORHEALTH [facility]ENTERPatrick [facility] 01-30-2018 explosive disorder End: 01-30-2018 Start: [facility] Intermittent ROC MARYHONORHE[facility] 01-23-2018 explosive disorder End: 01-23-2018 Start: [facility] Intermittent ROC MARYHONORHE[facility] 01-16-2018 explosive disorder End: 01-16-2018 Start: Periodic oral DEBBIE [facility]EDO [facility] 12-12-2017 evaluation Other Phone: [facility] ([id number]) Start: Patient encounter NA NA Not Availab le ([id number]) 12-06-2017 procedure Start: Patient encounter [facility] Not Availa ble ([id number]) 11-21-2017 procedure Start: Patient encounter [facility] 10-17-2017 procedure [facility] ([id number]) Start: Patient encounter [facility] 10-06-2017 procedure [facility] ([id number]) Start: Patient encounter [facility] 09-27-2017 procedure [facility] ([id number]) Start: Patient encounter [facility] 08-22-2017 procedure [facility] ([id number]) Start: Patient encounter [facility] 07-25-2017 procedure [facility] ([id number]) Start: Patient encounter [facility] Bhumi strict #1 07-19-2017 procedure of [facility] ([id number]) End: 07-20-2017 Start: Patient encounter [facility] 07-11-2017 procedure [facility] ([id number]) Start: Patient encounter [facility] 06-28-2017 procedure [facility] ([id number]) Start: Patient encounter [facility] 06-13-2017 procedure [facility] ([id number]) Start: Patient encounter [facility] strict #1 06-12-2017 procedure of [facility] ([id number]) End: 06-13-2017 Start: Patient encounter [facility] 05-23-2017 procedure [facility] ([id number]) Start: Patient encounter [facility] strict #1 01-31-2017 procedure of [facility] ([id number]) End: 02-01-2017 Start: Patient encounter BRENDAN LEWIS Not Availab le ([id number]) 05-26-2016 procedure Start: Emergency department BRENDAN LEWIS [facility] Via Ro 05-26-2016 patient visit [facility] ([id number]) End: 05-26-2016 Start: Patient encounter CECY ROMERO [facility] Via Chr isti 04-27-2016 procedure [facility] ([id number]) Medical Equipment No Information Goals No Information Immunizations The data below is from unstructured sourcesNo immunization records. No Known Immunizations No Known Immunizations No Known Immunizations No Known Immunizations No Known Immunizations No Known Immunizations No Known Immunizations No Known Immunizations No Known Immunizations No Known Immunizations No Known Immunizations No Known Immunizations No Known Immunizations No Known Immunizations No Known Immunizations No Known Immunizations No Known Immunizations No Known Immunizations No Known Immunizations No Known Immunizations No Known Immunizations No Known Immunizations No Known Immunizations No Known Immunizations No Known Immunizations No Known Immunizations No Known Immunizations No Known Immunizations No Known Immunizations No Known Immunizations No Known Immunizations No Known Immunizations No Known Immunizations No Known Immunizations No Known Immunizations No Known Immunizations No Known Immunizations No Known Immunizations No Known Immunizations No Known Immunizations No Known Immunizations No Known Immunizations No Known Immunizations No Known Immunizations No Known Immunizations No Known Immunizations No Known Immunizations No Known Immunizations No Known Immunizations No Known Immunizations No Known Immunizations No Known Immunizations No Known Immunizations No Known Immunizations No Known Immunizations No Known Immunizations No Known Immunizations No Known Immunizations No Known Immunizations No Known Immunizations No Known Immunizations No Known Immunizations Interventions No Information Medications Current Medications Medication Drug Dates Sig Sig (Original) Class(es) (Normalized) lisinopril 10 mg oral Angiotensi take 1 tablet Lisinopr il 10 MG Orally Once a day 1 tablet n by mouth once tablet 24h Acti ve (4 sources) Converting daily Enzyme Inhibitor pravastatin sodium 20 mg HMG-CoA take 1 tablet Prava statin Sodium 20 MG Orally Once a oral tablet Reductase by mouth once day 1 tablet 24 h Active (4 sources) Inhibitor daily divalproex sodium 250 mg Mood Start: Depak ote 250 MG as directed Feb, delayed release oral Stabilizer 02-28-2018 Active tablet , (1 source) Anti-epile ptic Agent Completed/Discontinued Medications Medication Drug Dates Sig Sig (Original) Class(es) (Normalized) ADENOSINE VIAL INJ Start: 12mg/4 mL (Adenocard) 01-28-2019 (1 source) End: 01-28-2019 Lactated Ringer's Start: Solution 07-12-2019 (1 source) End: 07-19-2019 Normal saline Start: (1 source) 07-12-2019 End: 07-27-2019 SMZ/TMP DS TAB (SEPT Start: DS) (Bactrim DS) 01-29-2019 (1 source) End: 01-29-2019 SMZ/TMP DS TAB (SEPTRA Start: DS) (Bactrim DS) 01-29-2019 (1 source) End: 01-29-2019 Payers Date Payer Normalized Payer Policy ID MEDICARE MEDICARE [employer] [place] Plan of Treatment Date Care Activity Detail Author Start: [facility] 10-09-2019 Start: [facility] 10[facility]09-2019 Start: [facility] 09-25-2019 Start: [facility] 09-11-2019 Start: [facility] 07-09-2019 Start: [facility] 07-03-2019 Start: [facility] 07-03-2019 Start: [facility] 06-24-2019 [facility] Start[facility] 06-12-2019 Start: [facility] 06-05-2019 Start: [facility] 06-04-2019 Start: [facility] 01-04-2019 Start: [facility] 11-27-2018 DENTAL DENTAL DENTAL Start[facility] 11[facility]20-2018 Start: [facility] 07-04-2018 Start: [facility] 07-04-2018 Start: [facility] 05-29-2018 [facility] 04-16-2018 Start: [facility] 2018 Start: [facility] DENTAL [facility] L [facility] DENTAL 04-03-2018 Start: [facility] 02-28-2018 [facility] 02-27-2018 Start: [facility] 01-23-2018 Problems Active Problems Problem Problem Date Last Documented Episodic/Chr Provider Classificati Recorded Date onic on Abdominal Epigastric pain Episodic BRENDAN JOSHUA pain (7 sources) Acute Acute bronchitis, unspecified ; 11-27-2019 Episodi c JOE bronchitis Translations: [ACUTE BRONCHITIS ] M URPHY (30 sources) Asthma Mild intermittent asthma, Chronic RA BELINDA uncomplicated ; Translations: TORO (10 [ASTHMA, UNSPECIFIED] sources) Bacterial Streptococcus pneumoniae as the 11-27-2019 Episodi c HIGINIO infection; cause of diseases classified KULWINDER S unspecified elsewhere ; Translations: site [Streptococcus, group A, as the (26 sources) cause of diseases classifie d elsewhere] Cardiac Supraventricular tachycardia ; 11-27-2019 Chronic DAVID dysrhythmias Translations: [PAROXYSMAL BATTAGLER (20 sources) SUPRAVENTRICULAR TACHYCARDI A] Conduction Nonspecific intraventricular block 11-27-2019 [place] alin CHANDROUTIE disorders SILVESTRE (20 sources) Contraceptiv Encounter for contraceptive 11-27-2019 Episodic HIGINIO e and management, unspecified ; TORO procreative Translations: [Counseling a nd management instruction in natural fami ly (30 sources) planning to avoid ] Developmenta Mild intellectual disabilities ; 11-27-2019 Chron ic HIGINIO l disorders Translations: [MILD INTELLECTUAL [facility] [place] (27 sources) DISABILITIES] Disorders of Hyperlipidemia, unspecified ; 11-27-2019 Chronic HIGINIO lipid Translations: [OTHER AND MOBLEY metabolism UNSPECIFIED HYPERLIPIDEMIA] (32 sources) Esophageal Esophageal reflux Chronic HIGINIO disorders MOBLEY (5 sources) Essential Essential (primary) hypertension ; 11-27-2019 [place] alin HIGINIO hypertension Translations: [MALIGNANT ESSENTIAL MBOLEY (34 sources) HYPERTENSION] Headache; Migraine, unspecified, not 11-27-2019 Chronic HIGINIO including intractable, without status MOBLEY migraine migrainosus ; Translations: (24 sources) [MIGRAINE, UNSPECIFIED, NOT INTRACTABLE, WITHOUT STATUS MIGRAINOSUS] Inflammatory Acute vaginitis ; Translations: 10-22-2019 Episod ic JOE diseases of [VAGINITIS AND VULVOVAGINITIS, MURP HY female UNSPECIFIED ] pelvic organs (24 sources) Menstrual Excessive and frequent menstruation Chronic HIGINIO disorders with irregular cycle MOBLEY (2 sources) Mycoses Candidiasis, unspecified ; 09-20-2019 Episodic ROC (23 sources) Translations: [Tinea corporis] MCCL EEARY Other Phone: Nonmalignant Galactorrhea not associated with Episodic CECY ROMERO breast childbirth ; Translations: conditions [Unspecified lump in breast ] (9 sources) Other lower Shortness of breath 11-27-2019 Episodic HIGINIO respiratory MOBLEY disease (22 sources) Other Pain in right elbow 11-27-2019 Episodic JOE non-traumati ROMERO c joint disorders (25 sources) Other Pain in right wrist 11-27-2019 Episodic JOE non-traumati ROMERO c joint disorders (24 sources) Other Pain in left shoulder 11-27-2019 Episodic JOSE LAS non-traumati BROWN c joint disorders (20 sources) Other Pain in joint, shoulder region 11-27-2019 Episodic QUINN non-traumati BROWN c joint disorders (20 sources) Other Galactosemia 11-27-2019 Chronic HIGINIO nutritional; MOBLEY endocrine; and metabolic disorders (26 sources) Other Galactosemia Chronic HIGINIO nutritional; MOBLEY endocrine; and metabolic disorders (6 sources) Other skin Ingrowing nail 11-27-2019 Episodic JOE disorders ROMERO (22 sources) Other upper Allergic rhinitis due to other Chronic JOE respiratory allergen ROMERO disease (2 sources) Other upper Other seasonal allergic rhinitis 11-27-2019 Chroni c JOE respiratory ROMERO disease (22 sources) Other upper Acute sinusitis, unspecified ; 11-27-2019 Episodic JOE respiratory Translations: [Streptococcal sore M URPHY infections throat] (20 sources) Residual High risk heterosexual behavior 11-27-2019 Episodi c HIGINIO codes; MOBLEY unclassified (27 sources) Urinary Urinary tract infection, site not 11-27-2019 Episo dic DAVID tract specified ; Translations: [URINARY BATTAGLER infections TRACT INFECTION, SITE NOT (32 sources) SPECIFIED] Viral Other viral agents as the cause of 04-28-2019 Epis odic CHANDROUTIE infection diseases classified elsewhere LATCH MAN (20 sources) Past or Other Problems Problem Problem Date Last Documented Episodic/Chr Provider Classificati Recorded Date onic on Disorders of Arrested dental caries ; Episodic LES DORIE teeth and Translations: [Disorder of teeth DORCAS HNSON jaw and supporting structures, (20 sources) unspecified] E Codes: Unspecified fall, initial encounter Episodic CECY ROMERO Fall (3 sources) Mood 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 (23 sources) depressive-like episode ; Translations: [MOOD DISORDER DUE TO KNOWN PHYSIOLOGICAL CONDITION WITH MAJOR DEPRESSIVE-LIKE EPISODE] Other Residual foreign body in soft Episodic DAWNY connective tissue ; Translations: [ - Foreign ROSE tissue body (FB) in soft tissue M79.5] [facility] er Phone: disease [phone] (7 sources) 0 Other Unspecified injury of right elbow, Episodic CECY ROMERO injuries and initial encounter conditions due to external causes (3 sources) Other Unspecified injury of right Episodic CECY ROMERO injuries and forearm, initial encounter conditions due to external causes (3 sources) Other Unspecified injury of right wrist, Episodic CECY ROMERO injuries and hand and finger(s), initial conditions encounter due to external causes (3 sources) Other lower Shortness of breath Episodic HIGINIO respiratory MOBLEY disease (2 sources) Other lower Cough Episodic JOE respiratory ROMERO disease (23 sources) Other lower Cough Episodic JOE respiratory ROMERO disease (2 sources) Other Pain in joint, forearm Episodic PAMEL A non-traumati ROMERO c joint disorders (6 sources) Other Pain in joint, upper arm Episodic CECY JUDE non-traumati ROMERO c joint disorders (5 sources) Other esophageal reflux Episodic RA BELINDA MOBLEY conditions (5 sources) Other skin Ingrowing nail Episodic JOE disorders ROMERO (2 sources) Residual Encounter for prophylactic fluoride Episodic ROYER codes; administration ; Translations: [ - RADHA unclassified Encounter for prophylactic (8 sources) administration of fluoride Z29.3] Residual High-risk sexual behavior Episodic RA BELINDA codes; MOBLEY unclassified (7 sources) Unclassified OTHER S QUINN (1 source) BROWN Unclassified PAIN IN JOINT INVOLVING SHOULDER 11-27-2019 QUINN (1 source) MIKE LYONS Procedures Date Procedure Procedure Detail Performing Cl inician Start: [facility] visit, DORCAS NEGRETE 07-31-2018 estab pt Other Phone: Start: Psychotherapy DORCAS NEGRETE 07-31-2018 w/patient 30 Other Phone: minutes Start: Dental prophylaxis DEBBIE ROBLEDO 07-25-2018 adult Other Phone: Start: Topical fluoride DEBBIE ROBLEDO 07-25-2018 varnish Other Phone: Start: [facility] visit, DORCAS NEGRETE 07-17-2018 estab pt Other Phone: Start: Psychotherapy DORCAS NEGRETE 07-17-2018 w/patient 30 Other Phone: minutes Start: visit needs to DORCAS NEGRETE 07-04-2018 be added to the Other Phone: [phone] same day medical Start: [facility] visit, MH DORCAS NEGRETE 07-04-2018 estab pt Other Phone: Start: Psychotherapy DORCAS NEGRETE 07-04-2018 w/patient 30 Other Phone: minutes Start: [facility] visit, MH DORCAS NEGRETE 04-16-2018 estab pt Other Phone: Start: Psychotherapy DORCAS NEGRETE 04-16-2018 w/patient 30 Other Phone: minutes Start: [facility] visit, estab CAROLEE THAIS 04-10-2018 pt Other Phone: [phone] Start: [facility] visit, guanakito KANGNHART 2018 pt Other Phone: Start: Dental prophylaxis ROYER GARCIA 04-03-2018 adult Start: Int caries med hannah ROYER GARCIA 04-03-2018 per tooth Start: Topical fluoride ROYER GARCIA 04-03-2018 varnish Start: [facility] visit, estab MYRON ROSE 02-28-2018 pt Other Phone: Start: [facility] visit, MH DORCAS NEGRETE 02-27-2018 estab pt Other Phone: [phone] Start: Psychotherapy DORCAS NEGRETE 02-27-2018 w/patient 30 Other Phone: minutes Start: [facility] visit, MH DORCAS NEGRETE 01-30-2018 estab pt Other Phone: Start: Psychotherapy DORCAS NEGRETE 01-30-2018 w/patient 30 Other Phone: minutes Start: [facility] visit, MH DORCAS NEGRETE 01-16-2018 estab pt Other Phone: [phone] Start: Psychotherapy DORCAS NEGRETE 01-16-2018 w/patient 30 Other Phone: minutes Start: Jesusita ROBLEDO 12-12-2017 images Other Phone: Start: Dental prophylaxis DEBBIE ROBLEDO 12-12-2017 adult Other Phone: Start: Intraoral DEBBIE ROBLEDO 12-12-2017 periapical ea add Other Phone: Start: Intraoral DEBBIE ROBLEDO 12-12-2017 periapical first Other Phone: Start: Topical fluoride DEBBIERAO ROBLEDO 12-12-2017 varnish Other Phone: Start: Psychotherapy ROC PENELOPE 12-06-2017 w/patient 30 Other Phone: minutes Results Test Name Value Interpreta Reference Facilit Date tion Range y Time laboratory on 2019-08-08 Albumin BCG dye 4.1 Invalid 3.6-5.1 Hospita [Mass/Vol] Interpreta g/dL l 020 tion Code Distric 16:10-[address] t [address] [place] [address] ([id number]) ALP [Catalytic 77 U/L Invalid 35-130 U/L Hospita activity/Vol] Interpreta l 020 tion Code Distric 16:10-0 t [address] [place] [address] ([id number]) ALT [Catalytic 28 U/L Invalid 6-45 U/L Hospita activity/Vol] Interpreta l 020 tion Code Distric 16:10-0 t [address] [place] [address] ([id number]) Anion gap 12 mmol/L Invalid 6-14 Hospita [Moles/Vol] Interpreta l 020 tion Code Distric 16:10-[address] t [address] [place] [address] ([id number]) AST [Catalytic 20 U/L Invalid 2-40 U/L Hospita activity/Vol] Interpreta l 020 tion Code Distric 16:10-0 t [address] [place] [address] ([id number]) Basophils (Bld) 0.0 10*3/uL Invalid 0.0-0.2 Hospita 08-07 [#/Vol] Interpreta K/uL l 020 tion Code Distric 16:10-0 t [address] [place] [address] ([id number]) Basophils/100 WBC 0.50 % Invalid 0.00-2.50 Hospita 08-072 (Bld) Interpreta % l 020 tion Code Distric 16:10-[address] t [address] [place] [address] ([id number]) Bilirubin [Mass/Vol] 0.2 mg/dL Invalid 0.2-1.2 Hospita 2 Interpreta mg/dL l 020 tion Code Distric 16:10-[address] t [address] [place] [address] () Calcium [Mass/Vol] 9.0 mg/dL Invalid 8.3-10.4 Hospita 04-0 2-2 Interpreta mg/dL l 020 tion Code Distric 16:10-0 t [address] [place] [address] () Chloride [Moles/Vol] 112 mmol/L Invalid 95-114 Hospita 0 08-07-2 Interpreta mmol/L l 020 tion Code Distric 16:10-0 t [address] [place] [address] () Creatinine 0.72 mg/dL Invalid 0.50-1.50 Hospita [Mass/Vol] Interpreta mg/dL l 020 tion Code Distric 16:10-0 t [address] [place] [address] ([id number]) Eosinophils (Bld) 0.1 10*3/uL Invalid 0.0-0.7 Hospita 06-09 [#/Vol] Interpreta K/uL l 020 tion Code Distric 16:10-0 t [address] [place] [address] ([id number]) Eosinophils/100 WBC 1.5 % Invalid 0.0-7.0 % Hospita 06-09 (Bld) Interpreta l 020 tion Code Distric 16:10-[address] [place] [address] () Erythrocyte 13.2 % Invalid 11.6-14.8 Hospita distribution width Interpreta % l 020 (RBC) [Ratio] tion Code Distric 16:10-0 t [address] [place] [address] () GFR/1.73 sq 94 mL/min/{1.73_m2} Invalid >59 Hospita 0 02-2 M.predicted MDRD Interpreta mL/min/1.7 l 020 (S/P/Bld) [Vol tion Code 3m2 Distric 16:10-0 rate/Area] t [address] [place] [address] () Globulin (S) 2.6 g/dL Invalid 2.3-3.5 Hospita 08-07-2 [Mass/Vol] Interpreta g/dL l 020 tion Code Distric 16:10-0 t [address] [place] [address] () Glucose [Mass/Vol] 123 mg/dL High 70-110 Hospita 04-0 2-2 mg/dL l 020 Distric 16:10-0 t [address] [place] [address] () HCO3 (P) [Moles/Vol] 23 Invalid 22-33 Hospita Interpreta mEq/L l 020 tion Code Distric 16:10-0 t [address] [place] [address] () Hematocrit (Bld) 39.5 % Invalid 36.0-46.0 Hospita [Volume fraction] Interpreta % l 020 tion Code Distric 16:10-0 t [address] [place] [address] () Hemoglobin (Bld) 13.8 g/dL Invalid 13.0-15.0 Hospita 2 [Mass/Vol] Interpreta g/dL l 020 tion Code Distric 16:10-0 t [address] [place] [address] () Lymphocytes (Bld) 3.97 10*3/uL High 0.60-3.40 Hospita 2 [#/Vol] K/uL l 020 Distric 16:10-0 t [address] [place] [address] () Lymphocytes/100 WBC 45.0 % Invalid 10.0-50.0 Hospita 06-09 (Bld) Interpreta % l 020 tion Code Distric 16:10-0 [address] [place] [address] () Magnesium [Mass/Vol] 1.9 mg/dL Invalid 1.6-2.6 Hospita -2 Interpreta mg/dL l 020 tion Code Distric 16:10-0 t [address] [place] [address] () MCH (RBC) [Entitic 29.8 pg Invalid 27.0-31.0 Hospita 04-0 2-2 mass] Interpreta pg l 020 tion Code Distric 16:10-0 t [address] [place] [address] ([id number]) MCHC (RBC) 34.9 g/dL Invalid 32.0-36.0 Hospita 08-07-2 [Mass/Vol] Interpreta g/dL l 020 tion Code Distric 16:10-0 t [address] [place] [address] ([id number]) MCV (RBC) [Entitic 85.3 fL Invalid 80.0-97.0 Hospita 04-0 2-2 vol] Interpreta fL l 020 tion Code Distric 16:10-0 t #1 of [address] [facility] ([id number]) Monocytes (Bld) 0.9 10*3/uL Invalid 0.0-0.9 Hospita 08-072 [#/Vol] Interpreta K/uL l 020 tion Code Distric 16:10-0 t [address] [place] [address] ([id number]) Monocytes/100 WBC 9.8 % Invalid 0.0-12.0 % Hospita 04-0 2-2 (Bld) Interpreta l 020 tion Code Distric 16:10-0 t #1 of [address] [facility] ([id number]) Neutrophils (Bld) 3.82 10*3/uL Invalid 2.00-6.90 Hospita 2 [#/Vol] Interpreta K/uL l 020 tion Code Distric 16:10-0 t #1 of [address] [facility] ([id number]) Neutrophils/100 WBC 43.2 % Invalid 37.0-80.0 Hospita 2 (Bld) Interpreta % l 020 tion Code Distric 16:10-0 t #1 of [address] [facility] ([id number]) Osmolality Calc 295 Invalid 280-295 Hospita 2 [Osmolality] Interpreta l 020 tion Code Distric 16:10-0 t [address] [place] [address] ([id number]) Platelet mean volume 9.6 fL Invalid 7.4-10.0 Hospita -2 (Bld) [Entitic vol] Interpreta fL l 020 tion Code Distric 16:10-0 t [address] [place] [address] ([id number]) Platelets (Bld) 357 10*3/uL Invalid 150-400 Hospita 08-072 [#/Vol] Interpreta K/uL l 020 tion Code Distric 16:10-0 t [address] [place] [address] () Potassium 4.2 mmol/L Invalid 3.5-5.3 Hospita 0402-2 [Moles/Vol] Interpreta mmol/L l 020 tion Code Distric 16:10-0 t [address] [place] [address] () Protein [Mass/Vol] 6.7 g/dL Invalid 6.0-8.3 Hospita 04-0 2-2 Interpreta g/dL l 020 tion Code Distric 16:10-0 [address] [place] [address] () RBC (Bld) [#/Vol] 4.63 10*6/uL Invalid 3.60-5.00 Hospita - Interpreta M/uL l 020 tion Code Distric 16:10-0 t [address] [place] [address] () Sodium [Moles/Vol] 143 mmol/L Invalid 134-148 Hospita 06-09 Interpreta mmol/L l 020 tion Code Distric 16:10-0 t [address] [place] [address] () Urea nitrogen 10 mg/dL Invalid 5-25 mg/dL Hospita 08-07- [Mass/Vol] Interpreta l 020 tion Code Distric 16:10-0 t [address] [place] [address] () WBC (Bld) [#/Vol] 8.82 10*3/uL Invalid 5.00-10.00 Hospita 0 08-07-2 Interpreta K/uL l 020 tion Code Distric 16:10-0 t [address] [place] [address] () laboratory on 2019-07-12 Beta HCG ( Negative Invalid Negative Hospita 10-07 test) Ql Interpreta l 020 tion Code Distric 03:38-[address] t [address] [place] [address] () not yet categorized on 2019-07-04 Electrocardiograms Complete Invalid Hospita 07-04- recorded Interpreta l 020 tion Code Distric 05:53-0 t [address] [place] [address] () laboratory on 2019-07-04 Anion gap 14 mmol/L Invalid 6-14 Hospita 07-04-2 [Moles/Vol] Interpreta l 020 tion Code Distric 05:53-[address] [place] [address] () Basophils (Bld) 0.0 10*3/uL Invalid 0.0-0.2 Hospita 07-04 [#/Vol] Interpreta K/uL l 020 tion Code Distric 05:53-0 t #[facility] of [address] [facility] () Basophils/100 WBC 0.20 % Invalid 0.00-2.50 Hospita 07-04 (Bld) Interpreta % l 020 tion Code Distric 05:53-0 t #1 of [address] [facility] () Calcium [Mass/Vol] 9.3 mg/dL Invalid 8.3-10.4 Hospita 02- 7-2 Interpreta mg/dL l 020 tion Code Distric 05:53-0 t #1 of [address] [facility] () Chloride [Moles/Vol] 109 mmol/L Invalid 95-114 Hospita 0 Interpreta mmol/L l 020 tion Code Distric 05:53-0 t #1 of [address] [facility] () Creatinine 0.72 mg/dL Invalid 0.50-1.50 Hospita [Mass/Vol] Interpreta mg/dL l 020 tion Code Distric 05:53-0 t #1 of [address] [facility] () Eosinophils (Bld) 0.1 10*3/uL Invalid 0.0-0.7 Hospita [#/Vol] Interpreta K/uL l 020 tion Code Distric 05:53-0 t #1 of [address] [facility] () Eosinophils/100 WBC 1.4 % Invalid 0.0-7.0 % Hospita (Bld) Interpreta l 020 tion Code Distric 05:53-0 t #1 of [address] [facility] () Erythrocyte 12.8 % Invalid 11.6-14.8 Hospita distribution width Interpreta % l 020 (RBC) [Ratio] tion Code Distric 05:53-0 t #1 of [address] [facility] () GFR/1.73 sq 94 mL/min/{1.73_m2} Invalid >59 Hospita 0 07-04-2 M.predicted MDRD Interpreta mL/min/1.7 l 020 (S/P/Bld) [Vol tion Code 3m2 Distric 05:53-0 rate/Area] t #1 of [address] [facility] () Glucose [Mass/Vol] 95 mg/dL Invalid 70-110 Hospita 06-09 7-2 Interpreta mg/dL l 020 tion Code Distric 05:53-[address] [place] [address] () HCO3 (P) [Moles/Vol] 22 Invalid 22-33 Hospita Interpreta mEq/L l 020 tion Code Distric 05:53-[address] t [address] [place] [address] () Hematocrit (Bld) 40.0 % Invalid 36.0-46.0 Hospita [Volume fraction] Interpreta % l 020 tion Code Distric 05:53-[address] [place] [address] () Hemoglobin (Bld) 14.0 g/dL Invalid 13.0-15.0 Hospita [Mass/Vol] Interpreta g/dL l 020 tion Code Distric 05:53-0 t #[facility] of [address] [facility] () INR Coag (Platelet 1.1 Invalid 1.0-4.0 Hospita 06-09 72 poor plasma or Interpreta l 020 blood) [Relative tion Code Distric 05:53-0 time] t [address] [place] [address] () Lymphocytes (Bld) 3.77 10*3/uL High 0.60-3.40 Hospita [#/Vol] K/uL l 020 Distric 05:53-0 t #1 of [address] [facility] () Lymphocytes/100 WBC 44.9 % Invalid 10.0-50.0 Hospita (Bld) Interpreta % l 020 tion Code Distric 05:53-0 t [address] [place] [address] () MCH (RBC) [Entitic 29.5 pg Invalid 27.0-31.0 Hospita 06-09 7-2 mass] Interpreta pg l 020 tion Code Distric 05:53-0 [address] [place] [address] () MCHC (RBC) 35.0 g/dL Invalid 32.0-36.0 Hospita [Mass/Vol] Interpreta g/dL l 020 tion Code Distric 05:53-0 t #1 of [address] [facility] ([id number]) MCV (RBC) [Entitic 84.4 fL Invalid 80.0-97.0 Hospita 06-09 7-2 vol] Interpreta fL l 020 tion Code Distric 05:53-0 t #1 of [address] [facility] ([id number]) Monocytes (Bld) 0.6 10*3/uL Invalid 0.0-0.9 Hospita 07-04 [#/Vol] Interpreta K/uL l 020 tion Code Distric 05:53-0 t #1 of [address] [facility] ([id number]) Monocytes/100 WBC 7.0 % Invalid 0.0-12.0 % Hospita 06-09 (Bld) Interpreta l 020 tion Code Distric 05:53-0 t #1 of 500 [facility] ([id number]) Neutrophils (Bld) 3.90 10*3/uL Invalid 2.00-6.90 Hospita [#/Vol] Interpreta K/uL l 020 tion Code Distric 05:53-0 t #1 of 500 [facility] ([id number]) Neutrophils/100 WBC 46.5 % Invalid 37.0-80.0 Hospita (Bld) Interpreta % l 020 tion Code Distric 05:53-0 t #1 of 500 [facility] ([id number]) Osmolality Calc 290 Invalid 280-295 Hospita [Osmolality] Interpreta l 020 tion Code Distric 05:53-0 t #1 of 500 [facility] ([id number]) Platelet mean volume 9.2 fL Invalid 7.4-10.0 Hospita (Bld) [Entitic vol] Interpreta fL l 020 tion Code Distric 05:53-0 t #1 of 500 [facility] ([id number]) Platelets (Bld) 350 10*3/uL Invalid 150-400 Hospita 07-04 [#/Vol] Interpreta K/uL l 020 tion Code Distric 05:53-0 t #1 of 500 [facility] ([id number]) Potassium 4.2 mmol/L Invalid 3.5-5.3 Hospita [Moles/Vol] Interpreta mmol/L l 020 tion Code Distric 05:53-0 t #1 of 500 [facility] () PT Coag (PPP) [Time] 12.3 s Invalid 9.9-12.8 Hospita Interpreta Sec l 020 tion Code Distric 05:53-0 t #1 of 500 [facility] () RBC (Bld) [#/Vol] 4.74 10*6/uL Invalid 3.60-5.00 Hospita Interpreta M/uL l 020 tion Code Distric 05:53-0 t #1 of 500 [facility] () Sodium [Moles/Vol] 141 mmol/L Invalid 134-148 Hospita Interpreta mmol/L l 020 tion Code Distric 05:53-0 t #1 of 500 [facility] () Urea nitrogen 9 mg/dL Invalid 5-25 mg/dL Hospita [Mass/Vol] Interpreta l 020 tion Code Distric 05:53-0 t #1 of 500 [facility] () WBC (Bld) [#/Vol] 8.40 10*3/uL Invalid 5.00-10.00 Hospita 0 Interpreta K/uL l 020 tion Code Distric 05:53-0 t #1 of 500 [facility] () laboratory on 2019-05-22 Basophils (Bld) 0.0 10*3/uL Invalid 0.0-0.2 Hospita 05-22 [#/Vol] Interpreta K/uL l 020 tion Code Distric 04:40-0 t #1 of 500 [facility] () Basophils/100 WBC 0.30 % Invalid 0.00-2.50 Hospita 05-22 (Bld) Interpreta % l 020 tion Code Distric 04:40-[address] [place] [address] () Eosinophils (Bld) 0.1 10*3/uL Invalid 0.0-0.7 Hospita [#/Vol] Interpreta K/uL l 020 tion Code Distric 04:40-0 t #1 of 500 [facility] () Eosinophils/100 WBC 1.6 % Invalid 0.0-7.0 % Hospita (Bld) Interpreta l 020 tion Code Distric 04:40-0 t #1 of 500 [facility] () Erythrocyte 12.7 % Invalid 11.6-14.8 Hospita distribution width Interpreta % l 020 (RBC) [Ratio] tion Code Distric 04:40-0 t #1 of 500 [facility] () Hematocrit (Bld) 40.6 % Invalid 36.0-46.0 Hospita [Volume fraction] Interpreta % l 020 tion Code Distric 04:40-0 t #1 of 500 [facility] () Hemoglobin (Bld) 14.2 g/dL Invalid 13.0-15.0 Hospita [Mass/Vol] Interpreta g/dL l 020 tion Code Distric 04:40-0 t #1 of 500 [facility] () Lymphocytes (Bld) 2.85 10*3/uL Invalid 0.60-3.40 Hospita [#/Vol] Interpreta K/uL l 020 tion Code Distric 04:40-0 t #1 of 500 [facility] () Lymphocytes/100 WBC 42.2 % Invalid 10.0-50.0 Hospita (Bld) Interpreta % l 020 tion Code Distric 04:40-0 t #1 of 500 [facility] () MCH (RBC) [Entitic 29.9 pg Invalid 27.0-31.0 Hospita 05-08 5-2 mass] Interpreta pg l 020 tion Code Distric 04:40-0 t #1 of 500 [facility] () MCHC (RBC) 35.0 g/dL Invalid 32.0-36.0 Hospita [Mass/Vol] Interpreta g/dL l 020 tion Code Distric 04:40-0 t #1 of 500 [facility] () MCV (RBC) [Entitic 85.5 fL Invalid 80.0-97.0 Hospita 05-08 5-2 vol] Interpreta fL l 020 tion Code Distric 04:40-0 t #1 of 500 [facility] ([id number]) Monocytes (Bld) 0.5 10*3/uL Invalid 0.0-0.9 Hospita 05-22 [#/Vol] Interpreta K/uL l 020 tion Code Distric 04:40-0 t #1 of 500 [facility] ([id number]) Monocytes/100 WBC 8.0 % Invalid 0.0-12.0 % Hospita 05-08 5-2 (Bld) Interpreta l 020 tion Code Distric 04:40-0 t #1 of 500 [facility] ([id number]) Neutrophils (Bld) 3.24 10*3/uL Invalid 2.00-6.90 Hospita [#/Vol] Interpreta K/uL l 020 tion Code Distric 04:40-0 t #1 of 500 [facility] ([id number]) Neutrophils/100 WBC 47.9 % Invalid 37.0-80.0 Hospita (Bld) Interpreta % l 020 tion Code Distric 04:40-0 t #1 of 500 [facility] ([id number]) Platelet mean volume 9.4 fL Invalid 7.4-10.0 Hospita (Bld) [Entitic vol] Interpreta fL l 020 tion Code Distric 04:40-0 t #1 of 500 [facility] ([id number]) Platelets (Bld) 373 10*3/uL Invalid 150-400 Hospita 05-22 [#/Vol] Interpreta K/uL l 020 tion Code Distric 04:40-0 t #1 of 500 [facility] ([id number]) RBC (Bld) [#/Vol] 4.75 10*6/uL Invalid 3.60-5.00 Hospita Interpreta M/uL l 020 tion Code Distric 04:40-0 t #1 of 500 [facility] ([id number]) WBC (Bld) [#/Vol] 6.76 10*3/uL Invalid 5.00-10.00 Hospita 0 -15-2 Interpreta K/uL l 020 tion Code Distric 04:40-0 t #1 of 500 [facility] ([id number]) laboratory on 2019-05-02 HPV Negative Invalid Negative [facility] 16+18+31+33+35+39+45 Interpreta ([id number]) 019 +51+52+56+58+59+66+6 tion Code 08:18-0 8 DNA Probe+sig amp 500 Ql (Cvx) not yet categorized on 2019-04-30 QC reviewed by: Comment Invalid [facility] Interpreta ([id number]) 019 tion Code 10:19-0 500 laboratory on 2019-04-30 Otolaryngology Rep Cyto Comment Invalid [facility] stain Nom (Cvx/Vag) Interpreta ([id number]) 019 [ID] tion Code 10:19-0 500 Cytology report Cyto Comment Invalid [facility] 04-30 stain Doc (Cvx/Vag) Interpreta ([id number]) 019 tion Code 10:19-0 500 Cytology report Cyto Comment Invalid [facility] 04-30 stain.thin prep Doc Interpreta ([id number]) 019 (Cvx/Vag) tion Code 10:19-0 500 Microscopic . Invalid [facility] observation Other Interpreta ([id number]) 019 stain Nom (Unsp tion Code 10:19-0 spec) 500 Statement of Comment Invalid [facility] adequacy Cyto stain Interpreta ([id number]) 019 (Cvx/Vag) [Interp] tion Code 10:19-0 500 laboratory on 2019-04-26 Reagin Ab RPR Ql (S) Non Reactive Invalid Non [facility] Interpreta Reactive ([id number]) 019 tion Code 02:48-0 500 laboratory on 2019-04-25 C. trachomatis rRNA Negative Invalid Negative [facility] CHERIE+probe Ql (Unsp Interpreta ([id number]) 019 spec) tion Code 14:24-0 500 HCV Ab Signal/Cutoff <0.1 Invalid 0.0-0.9 [facility] IA [Rel units/Vol] Interpreta s/co ratio ([id number]) 019 tion Code 21:50-0 500 N. gonorrhoeae rRNA Negative Invalid Negative [facility] CHERIE+probe Ql (Unsp Interpreta ([id number]) 019 spec) tion Code 14:24-0 500 not yet categorized on 2019-04-23 CHLAMYDIA Negative NEGATIVE Hospita TRACHOMATIS, CHERIE l 019 Distric 08:30-0 t #1 of 500 [facility] ([id number]) HEP C VIRUS AB <0.1 Invalid 0.0-0.9 Hospita Interpreta S/CO RATIO l 019 tion Code Distric 08:30-0 t #1 of 500 [facility] ([id number]) NEISSERIA Negative NEGATIVE Hospita GONORRHOEAE, CHERIE l 019 Distric 08:30-0 t [address] [place] [address] ([id number]) laboratory on 2019-04-23 Reagin Ab RPR Ql (S) NON REACTIVE NON Hospita REACTIVE l 019 Distric 08:30-0 t [address] [place] [address] ([id number]) not yet categorized on 2019-01-29 CULTURE SOURCE random clean catch Hospita l 019 Distric 00:59-0 t [address] [place] [address] ([id number]) FINAL CULTURE 20,000-50,000 Gram Positive Mixed [place] Invalid Hospita RESULTS Probable Skin Contaminant Interpreta l 019 No Further Workup done tion Code Distric 00:59-0 t [address] [place] [address] ([id number]) MEDIA PLATED Setup at 00:04 on 01/29/2019 Hospita l 019 Distric 00:59-0 t [address] [place] [address] ([id number]) PRELIM CULTURE 10,000-20,000 Gram Positive Mixed [place] Hosp jaylen RESULTS Probable Skin Contaminant l 01 9 Distric 00:59-0 t [address] [place] [address] ([id number]) Urine Volume Urine Volume Sufficient (10mL) Hospita l 019 Distric 00:45-0 t [address] [place] [address] ([id number]) Culture to follow Abnormal Hospita l 019 Distric 00:45-0 t [address] [place] [address] ([id number]) laboratory on 2019-01-29 Amphetamines Ql (U) Negative Invalid NEGATIVE Hospita Interpreta l 019 tion Code Distric 00:45-0 t [address] [place] [address] ([id number]) Bacteria LM Ql 1+ Abnormal Hospita (Urine sed) l 019 Distric 00:45-0 t [address] [place] [address] ([id number]) Barbiturates Screen Negative Invalid NEGATIVE Hospita 24-2 Ql (U) Interpreta l 019 tion Code Distric 00:45-0 t [address] [place] [address] ([id number]) Benzodiazepine Negative Invalid NEGATIVE Hospita 24-2 metabolites Screen Interpreta l 019 Ql (U) tion Code Distric 00:45-0 t [address] [place] [address] ([id number]) Bilirubin Confirm Ql N/A Abnormal Negative Hospita 24-2 (U) l 019 Distric 00:45-0 [address] [place] [address] ([id number]) Bilirubin Ql (U) Negative Negative Hospita 24-2 l 019 Distric 00:45-0 [address] [place] [address] ([id number]) Carboxy Negative Invalid NEGATIVE Hospita 24-2 tetrahydrocannabinol Interpreta l 019 Ql (U) tion Code Distric 00:45-0 t [address] [place] [address] ([id number]) Clarity (U) Slightly Cloudy Abnormal Clear Hospita 24 -2 l 019 Distric 00:45-0 t [address] [place] [address] ([id number]) Cocaine Ql (U) Negative Invalid NEGATIVE Hospita 24-2 Interpreta l 019 tion Code Distric 00:45-[address] [place] [address] ([id number]) Color (U) Yellow Colorless- Hospita 24-2 Lt. Yellow l 019 Distric 00:45-[address] [place] [address] ([id number]) Epithelial 5-10/HPF Abnormal Hospita 2 cells.squamous l 019 LM.HPF (Urine sed) Distric 00:45-0 [#/Area] t [address] [place] [address] ([id number]) Glucose Test strip Negative Negative Hospita 24-2 (U) [Mass/Vol] l 019 Distric 00:45-0 t [address] [place] [address] ([id number]) Hemoglobin Ql (U) Trace-lysed Abnormal Negative Hospita 24-2 l 019 Distric 00:45-0 [address] [place] [address] ([id number]) Ketones (U) Negative Negative Hospita 24-2 [Mass/Vol] l 019 Distric 00:45-0 [address] [place] [address] ([id number]) Leukocyte esterase 1+ Abnormal Negative [facility] 01-07 4-2 Test strip Ql (U) l 019 Distric 00:45-0 t [address] [place] [address] ([id number]) Methylenedioxymetham Negative Invalid NEGATIVE [facility] phetamine Screen Ql Interpreta l 019 (U) tion Code Distric 00:45-0 t [address] [place] [address] ([id number]) Mucus Ql (Urine sed) 1+ Abnormal Hospita 01-29 l 019 Distric 00:45-0 t [address] [place] [address] ([id number]) Nitrite Ql (U) Negative Negative [facility] l 019 Distric 00:45-0 t [address] [place] [address] ([id number]) Opiates Screen Ql Negative [facility] 01[facility] (U) Interpreta l 019 tion Code Distric 00:45-0 t [address] [place] [address] ([id number]) oxyCODONE Ql (U) Negative Invalid NEGATIVE [facility] Interpreta l 019 tion Code Distric 00:45-0 [address] [place] [address] ([id number]) pH (U) 5.5 [pH] 5-8.5 [facility] l 019 Distric 00:45-0 [address] [place] [address] ([id number]) Phencyclidine Ql (U) Negative Invalid NEGATIVE [facility] Interpreta l 019 tion Code Distric 00:45-0 t [address] [place] [address] ([id number]) Propoxyphene Ql (U) Negative Invalid NEGATIVE [facility] Interpreta l 019 tion Code Distric 00:45-0 [address] [place] [address] ([id number]) Protein (U) Negative Negative [facility] [Mass/Vol] l 019 Distric 00:45-0 [address] [place] [address] ([id number]) RBC LM.HPF (Urine 0-2/HPF [facility]normal [facility] sed) [#/Area] l 019 Distric 00:45-0 t [address] [place] [address] ([id number]) Specific gravity (U) 1.025 1.000-1.03 [facility] 01-29 [Rel density] 0 l 019 Distric 00:45-0 t [address] [place] [address] ([id number]) Tricyclic Negative Invalid NEGATIVE Hospita antidepressants Ql Interpreta l 019 (U) tion Code Distric 00:45-0 t [address] [place] [address] ([id number]) Urobilinogen Qn (U) 0.2 0.2-1.0 Hospita l 019 Distric 00:45-0 [address] [place] [address] ([id number]) WBC LM.HPF (Urine 10-20/HPF Abnormal Hospita sed) [#/Area] l 019 Distric 00:45-0 t [address] [place] [address] ([id number]) WBC LM.HPF (Urine 20-40/HPF Abnormal Hospita sed) [#/Area] l 019 Distric 00:45-0 [address] [place] [address] ([id number]) Yeast.budding Ql No Yeast present Hospita (Urine sed) l 019 Distric 00:45-0 t [address] [place] [address] ([id number]) not yet categorized on 2019-01-28 Electrocardiograms Complete Hospita recorded l 019 Distric 23:40-0 t [address] [place] [address] ([id number]) laboratory on 2019-01-28 Albumin BCG dye 4.5 Invalid 3.6-5.1 [facility] [Mass/Vol] Interpreta g/dL l 019 tion Code Distric 23:50-0 t [address] [place] [address] ([id number]) ALP [Catalytic 79 U/L Invalid 35-130 U/L Hospita activity/Vol] Interpreta l 019 tion Code Distric 23:50-0 t [address] [place] [address] ([id number]) ALT [Catalytic 26 U/L Invalid 6-45 U/L [facility] activity/Vol] Interpreta l 019 tion Code Distric 23:50-0 t [address] [place] [address] ([id number]) Anion gap 17 mmol/L High 6-14 Hospita [Moles/Vol] l 019 Distric 23:50-0 [address] [place] [address] ([id number]) AST [Catalytic 21 U/L Invalid 2-40 U/L Hospita activity/Vol] Interpreta l 019 tion Code Distric 23:50-0 t [address] [place] [address] ([id number]) Basophils (Bld) 0.0 10*3/uL Invalid 0.0-0.2 Hospita 01-28 -2 [#/Vol] Interpreta K/uL l 019 tion Code Distric 23:50-0 t [address] [place] [address] ([id number]) Basophils/100 WBC 0.20 % Invalid 0.00-2.50 Hospita 01-28 -2 (Bld) Interpreta % l 019 tion Code Distric 23:50-0 t [address] [place] [address] ([id number]) Bilirubin [Mass/Vol] 0.3 mg/dL Invalid 0.2-1.2 Hospita Interpreta mg/dL l 019 tion Code Distric 23:50-0 [address] [place] [address] ([id number]) Calcium [Mass/Vol] 9.3 mg/dL Invalid 8.3-10.4 Hospita 09-2 3-2 Interpreta mg/dL l 019 tion Code Distric 23:50-0 t [address] [place] [address] ([id number]) Chloride [Moles/Vol] 111 mmol/L Invalid 95-114 Hospita 0 -23-2 Interpreta mmol/L l 019 tion Code Distric 23:50-0 [address] [place] [address] ([id number]) Creatinine 0.74 mg/dL Invalid 0.50-1.50 Hospita 01-28-2 [Mass/Vol] Interpreta mg/dL l 019 tion Code Distric 23:50-0 t [address] [place] [address] ([id number]) Eosinophils (Bld) 0.1 10*3/uL Invalid 0.0-0.7 Hospita -2 [#/Vol] Interpreta K/uL l 019 tion Code Distric 23:50-0 [address] [place] [address] ([id number]) Eosinophils/100 WBC 1.0 % Invalid 0.0-7.0 % Hospita -2 (Bld) Interpreta l 019 tion Code Distric 23:50-0 [address] [place] [address] ([id number]) Erythrocyte 13.6 % Invalid 11.6-14.8 Hospita 09-23-2 distribution width Interpreta % l 019 (RBC) [Ratio] tion Code Distric 23:50-0 t [address] [place] [address] () GFR/1.73 sq 92 mL/min/{1.73_m2} Invalid >59 Hospita 0 9-23-2 M.predicted MDRD Interpreta mL/min/1.7 l 019 (S/P/Bld) [Vol tion Code 3m2 Distric 23:50-0 rate/Area] t [address] [place] [address] () Globulin (S) 3.0 g/dL Invalid 2.3-3.5 Hospita [Mass/Vol] Interpreta g/dL l 019 tion Code Distric 23:50-0 [address] [place] [address] () Glucose [Mass/Vol] 111 mg/dL High 70-110 Hospita 09-2 3-2 mg/dL l 019 Distric 23:50-0 t [address] [place] [address] () HCO3 (P) [Moles/Vol] 18 Low 22-33 Hospita 23-2 mEq/L l 019 Distric 23:50-0 t [address] [place] [address] () Hematocrit (Bld) 43.4 % Invalid 36.0-46.0 [facility] [Volume fraction] Interpreta % l 019 tion Code Distric 23:50-0 [address] [place] [address] () Hemoglobin (Bld) 14.9 g/dL Invalid 13.0-15.0 Hospita 01-28- [Mass/Vol] Interpreta g/dL l 019 tion Code Distric 23:50-0 t [address] [place] [address] ([id number]) Lymphocytes (Bld) 4.99 10*3/uL High 0.60-3.40 Hospita -2 [#/Vol] K/uL l 019 Distric 23:50-0 [address] [place] [address] ([id number]) Lymphocytes/100 WBC 53.0 % High 10.0-50.0 Hospita -2 (Bld) % l 019 Distric 23:50-0 [address] [place] [address] ([id number]) MCH (RBC) [Entitic 29.0 pg Invalid 27.0-31.0 Hospita 09- 3-2 mass] Interpreta pg l 019 tion Code Distric 23:50-0 t #1 of 400 [facility] ([id number]) MCHC (RBC) 34.3 g/dL Invalid 32.0-36.0 Hospita 01-28- [Mass/Vol] Interpreta g/dL l 019 tion Code Distric 23:50-0 t #1 of 400 [facility] ([id number]) MCV (RBC) [Entitic 84.6 fL Invalid 80.0-97.0 Hospita 09- 3-2 vol] Interpreta fL l 019 tion Code Distric 23:50-0 t #1 of 400 [facility] () Monocytes (Bld) 0.9 10*3/uL Invalid 0.0-0.9 Hospita 01-28 [#/Vol] Interpreta K/uL l 019 tion Code Distric 23:50-0 t #1 of 400 [facility] () Monocytes/100 WBC 9.1 % Invalid 0.0-12.0 % Hospita 01-07 3-2 (Bld) Interpreta l 019 tion Code Distric 23:50-0 t #1 of 400 [facility] ([id number]) Neutrophils (Bld) 3.45 10*3/uL Invalid 2.00-6.90 Hospita [#/Vol] Interpreta K/uL l 019 tion Code Distric 23:50-0 t #1 of 400 [facility] ([id number]) Neutrophils/100 WBC 36.7 % Low 37.0-80.0 Hospita (Bld) % l 019 Distric 23:50-0 t #1 of 400 [facility] ([id number]) Osmolality Calc 293 Invalid 280-295 Hospita [Osmolality] Interpreta l 019 tion Code Distric 23:50-0 t #1 of 400 [facility] ([id number]) Platelet mean volume 9.3 fL Invalid 7.4-10.0 Hospita - (Bld) [Entitic vol] Interpreta fL l 019 tion Code Distric 23:50-0 t #1 of 400 [facility] ([id number]) Platelets (Bld) 400 10*3/uL Invalid 150-400 Hospita 01-282 [#/Vol] Interpreta K/uL l 019 tion Code Distric 23:50-0 t [address] [place] [address] () Potassium 4.2 mmol/L Invalid 3.5-5.3 Hospita 01-28-2 [Moles/Vol] Interpreta mmol/L l 019 tion Code Distric 23:50-0 t [address] [place] [address] () Protein [Mass/Vol] 7.5 g/dL Invalid 6.0-8.3 Hospita 09- 3-2 Interpreta g/dL l 019 tion Code Distric 23:50-0 t [address] [place] [address] () RBC (Bld) [#/Vol] 5.13 10*6/uL High 3.60-5.00 Hospita -2 M/uL l 019 Distric 23:50-0 t [address] [place] [address] () Sodium [Moles/Vol] 142 mmol/L Invalid 134-148 Hospita Interpreta mmol/L l 019 tion Code Distric 23:50-0 t [address] [place] [address] () Troponin I.cardiac ng/mL Invalid 0.0-0.4 Hospita 09- 3-2 [Mass/Vol] Interpreta ng/mL l 019 tion Code Distric 23:50-0 t [address] [place] [address] () TSH Qn 3.40 Invalid 0.32-5.00 Hospita Interpreta mIU/mL l 019 tion Code Distric 23:50-0 t [address] [place] [address] ([id number]) Urea nitrogen 10 mg/dL Invalid 5-25 mg/dL Hospita [Mass/Vol] Interpreta l 019 tion Code Distric 23:50-0 t [address] [place] [address] ([id number]) Valproate [Mass/Vol] 17.5 ug/mL Low 55.0-105.0 Hospita 01-28-2 ug/mL l 019 Distric 23:50-0 t [address] [place] [address] ([id number]) WBC (Bld) [#/Vol] 9.41 10*3/uL Invalid 5.00-10.00 Hospita 0 9-23-2 Interpreta K/uL l 019 tion Code Distric 23:50-0 t [address] [place] [address] ([id number]) laboratory on 2018-08-09 Albumin BCG dye 4.4 Invalid 3.6-5.1 [facility]ospita 04-2 [Mass/Vol] Interpreta g/dL l 019 tion Code Distric 15:55-0 t [address] [place] [address] ([id number]) ALP [Catalytic 86 U/L Invalid 35-130 U/L Hospita 08-09-2 activity/Vol] Interpreta l 019 tion Code Distric 15:55-0 t [address] [place] [address] () ALT [Catalytic 23 U/L Invalid 6-45 U/L Hospita 08-09-2 activity/Vol] Interpreta l 019 tion Code Distric 15:55-0 t [address] [place] [address] () Anion gap 15 mmol/L High 6-14 Hospita 08-09-2 [Moles/Vol] l 019 Distric 15:55-0 t [address] [place] [address] ([id number]) AST [Catalytic 21 U/L Invalid 2-40 U/L Hospita activity/Vol] Interpreta l 019 tion Code Distric 15:55-0 [address] [place] [address] ([id number]) Bilirubin [Mass/Vol] 0.3 mg/dL Invalid 0.2-1.2 Hospita 04-2 Interpreta mg/dL l 019 tion Code Distric 15:55-0 [address] [place] [address] ([id number]) Calcium [Mass/Vol] 9.6 mg/dL Invalid 8.3-10.4 Hospita 04-0 4-2 Interpreta mg/dL l 019 tion Code Distric 15:55-0 [address] [place] [address] ([id number]) Chloride [Moles/Vol] 105 mmol/L Invalid 95-114 Hospita 0 4-04-2 Interpreta mmol/L l 019 tion Code Distric 15:55-0 [address] [place] [address] ([id number]) Cholesterol 219 mg/dL Invalid 100-240 Hospita 04-2 [Mass/Vol] Interpreta mg/dL l 019 tion Code Distric 15:55-0 [address] [place] [address] ([id number]) Cholesterol in HDL 43 mg/dL Invalid 30-85 [facility]ospita 04-0 4-2 [Mass/Vol] Interpreta mg/dL l 019 tion Code Distric 15:55-0 [address] [place] [address] ([id number]) Cholesterol in LDL 154 mg/dL High 0-100 Hospita 04-0 4-2 [Mass/Vol] mg/dL l 019 Distric 15:55-0 t [address] [place] [address] () Cholesterol in VLDL 22 mg/dL Invalid 0-42 mg/dL [facility]osp[facility] 04 -04-2 [Mass/Vol] Interpreta l 019 tion Code Distric 15:55-0 [facility] [address] [place] [address] () Cholesterol.total/Ch 5.1 {ratio} Invalid 3.7-6.7 [facility]ospita 0404-2 olesterol in HDL Interpreta l 019 [Mass ratio] tion Code Distric 15:55-0 [facility] [address] [place] [address] () Creatinine 0.73 mg/dL Invalid 0.50-1.50 [facility]osp[facility] 04-04-2 [Mass/Vol] Interpreta mg/dL l 019 tion Code Distric 15:55-0 [facility] [address] [place] [address] () GFR/1.73 sq 93 mL/min/{1.73_m2} Invalid >59 [facility]osp[facility] 0 4-04-2 M.predicted MDRD Interpreta mL/min/1.7 l 019 (S/P/Bld) [Vol tion Code 3m2 Distric 15:55-0 rate/Area] [facility] [address] [place] [address] () Globulin (S) 2.2 g/dL Low 2.3-3.5 [facility]osp[facility] 04-04-2 [Mass/Vol] g/dL l 019 Distric 15:55-0 [facility] [address] [place] [address] () Glucose [Mass/Vol] 72 mg/dL Invalid 70-110 [facility] 04-0 4-2 Interpreta mg/dL l 019 tion Code Distric 15:55-0 [facility] [address] [place] [address] () HCO3 (P) [Moles/Vol] 24 Invalid 22-33 [facility] 04 -04-2 Interpreta mEq/L l 019 tion Code Distric 15:55-0 [address] [place] [address] ([id number]) Osmolality Calc 286 Invalid 280-295 [facility]osp[facility] 2 [Osmolality] Interpreta l 019 tion Code Distric 15:55-0 [address] [place] [address] ([id number]) Potassium 3.9 mmol/L Invalid 3.5-5.3 [facility]osp[facility] 08-09-2 [Moles/Vol] Interpreta mmol/L l 019 tion Code Distric 15:55-0 [facility] [address] [place] [address] ([id number]) Protein [Mass/Vol] 6.6 g/dL Invalid 6.0-8.3 [facility]osp[facility] 04-0 4-2 Interpreta g/dL l 019 tion Code Distric 15:55-0 [address] [place] [address] ([id number]) Sodium [Moles/Vol] 140 mmol/L Invalid 134-148 [facility] 2 Interpreta mmol/L l 019 tion Code Distric 15:55-0 [address] [place] [address] ([id number]) Triglyceride 108 mg/dL Invalid 35-160 [facility]osp[facility] 08-09-2 [Mass/Vol] Interpreta mg/dL l 019 tion Code Distric 15:55-0 [address] [place] [address] ([id number]) Urea nitrogen 7 mg/dL Invalid 5-25 mg/dL [facility]osp[facility] 08-09-2 [Mass/Vol] Interpreta l 019 tion Code Distric 15:55-0 [address] [place] [address] ([id number]) laboratory on 2018-05-22 C. trachomatis rRNA Negative Invalid Negative [facility] CHERIE+probe Ql (Unsp Interpreta ([id number]) 019 spec) tion Code 22:48-0 500 N. gonorrhoeae rRNA Negative Invalid Negative [facility] CHERIE+probe Ql ([facility] Interpreta ([id number]) 019 spec) tion Code 22:48-0 500 not yet categorized on 2018-05-18 CHLAMYDIA Negative NEGATIVE [facility]ospita TRACHOMATIS, CHERIE l 019 Distric 15:00-0 t #1 of 500 [facility] ([id number]) FINAL CULTURE No Growth 48 hours Invalid Hospita 05-18 RESULTS Interpreta l 019 tion Code Distric 15:00-0 t #1 of 500 [facility] ([id number]) MEDIA PLATED Setup at 17:13 on 05/18/2018 Hospita l 019 Distric 15:00-0 t #1 of 500 [facility] ([id number]) NEISSERIA Negative NEGATIVE Hospita GONORRHOEAE, CHERIE l 019 Distric 15:00-0 t #1 of 500 [facility] ([id number]) PRELIM CULTURE No Growth 24 hours Hospita RESULTS l 019 Distric 15:00-0 t #1 of 500 [facility] ([id number]) laboratory on 2018-04-24 C. trachomatis rRNA Negative Invalid Negative [facility] CHERIE+probe Ql (Unsp Interpreta (04937) 018 spec) tion Code 18:10-0 500 N. gonorrhoeae rRNA Negative Invalid Negative [facility] CHERIE+probe Ql ([facility] (26939) 018 spec) tion Code 18:10-0 500 laboratory on 2018-04-21 HCV Ab Signal/Cutoff <0.1 Invalid 0.0-0.9 [facility] IA [Rel units/Vol] Interpreta s/co ratio (84030) 018 tion Code 19:18-0 500 HIV 1+2 Ab+HIV1 p24 Non Reactive Invalid Non [facility] Ag IA Ql Interpreta Reactive (65181) 018 tion Code 19:18-0 500 Prolactin [Mass/Vol] 15.3 ng/mL Invalid 4.8-23.3 [facility] 1 15-2 Interpreta ng/mL (25374) 018 tion Code 08:25-0 500 Reagin Ab RPR Ql (S) Non Reactive Invalid Non [facility] Interpreta Reactive (35342) 018 tion Code 08:58-0 500 not yet categorized on 2018-04-19 CHLAMYDIA Negative NEGATIVE Hospita TRACHOMATIS, CHERIE l 018 Distric 16:33-0 t #1 of 500 [facility] ([id number]) HEP C VIRUS AB <0.1 Invalid 0.0-0.9 Hospita Interpreta S/CO RATIO l 018 tion Code Distric 16:33-0 t #1 of 500 [facility] ([id number]) HIV SCREEN 4TH NON REACTIVE Invalid NON Hospita 04-19 GENERATION WRFX Interpreta REACTIVE l 018 tion Code Distric 16:33-0 t #1 of 500 [facility] ([id number]) NEISSERIA Negative NEGATIVE Hospita GONORRHOEAE, CHERIE l 018 Distric 16:33-0 t #1 of 500 [facility] ([id number]) PROLACTIN 15.3 Invalid 4.8-23.3 Hospita Interpreta NG/ML l 018 tion Code Distric 16:33-0 t #1 of 500 [facility] ([id number]) laboratory on 2018-04-19 Reagin Ab RPR Ql (S) NON REACTIVE NON Hospita REACTIVE l 018 Distric 16:33-0 t #1 of 500 [facility] ([id number]) Social History No Information Vital Signs Date Time Vital Sign Value Performing Clinician Facil ity 04-10-2018 Body height 165.1 cm [facility] 19:50-0500 Other Phone: [facility] ([id number]) 04-10-2018 Body mass index 38.09 kg/m2 [facility] 19:50-0500 (BMI) [Ratio] Other Phone: [facility] ([id number]) 04-10-2018 Body temperature 98.6 [degF] [facility] 19:50-0500 Other Phone: [facility] ([id number]) 04-10-2018 Body weight 103.83 kg [facility] 19:50-0500 Other Phone: [facility] ([id number]) 2018 Body height 165.1 cm [facility] 14:20-0500 Other Phone: [facility] ([id number]) 2018 Body mass index 38.19 kg/m2 [facility] 14:20-0500 (BMI) [Ratio] Other Phone: [facility] ([id number]) 2018 Body weight 104.1 kg [facility] 14:20-0500 Other Phone: [facility] ([id number]) 02-28-2018 Body height 165.1 cm [facility] 14:00-0400 Other Phone: [facility] ([id number]) 02-28-2018 Body mass index 37.59 kg/m2 [facility] 14:000400 (BMI) [Ratio] Other Phone: [facility] ([id number]) 02-28-2018 Body weight 102.47 kg [facility] 14:00-0400 Other Phone: [facility] ([id number]) Functional Status The data below is from unstructured sourcesNo functional status results. Mental Status No Information Clinical Note 2019-04-30 Note Date & Note Facility Type 04-30-2019 Comment (L) The Pap smear is a screening test [facility] (38052) Note designed to aid in the dete ction of~premalignant and malignant conditions of the uterine cervix. It is not a~diagnostic procedure and should not be used as the sole mean s of detecting~cervical cancer. Both false-positive and false-n egative reports do occur.~ History general Narrative - Reported Note Date & Note Facility Type History general Narrative - Reported Type Medical Bipolar affective disorder, remission status unspecified History Medical Intermittent explosive diso rder History Medical PTSD (post-traumatic stress disorder) History Medical HTN History Medical High cholesterol History Surgical No Surgical history informa tion History [facility] ([id number]) History general Narrative - Reported Note Date & Note Facility Type History general Narrative - Reported Type Medical Bipolar affective disorder, remission status unspecified History Medical Intermittent explosive diso rder History Medical PTSD (post-traumatic stress disorder) History Medical HTN History Medical High cholesterol History Surgical No know Surgical history History [facility] ([id number]) Reason for visit Narrative Note Date & Note Facility Type Reason for ADULT OUTREACH CLASS LTD [facility] visit [facility] ([id number]) Discharge Instructions No hospital discharge instructions. Additional Source Comments This clinical document has been generated using [employer] software that has been certified by the Office of the National Coordinator for Health Information Technology (ONC 15.99.04.3023.Diam.31.00.0.838308) and the National Committee for Family Caseworker (NCQA, as an eMeasure certified technology). FOR RECORDS PERTAINING TO PATIENTS WHO ARE OR HAVE BEEN ENROLLED IN A CHEMICAL D EPENDENCY/SUBSTANCE ABUSE PROGRAM, SOME INFORMATION MAY BE OMITTED. This clinica l summary was aggregated from multiple sources. Caution should be exercised in using it in the provision of clinical care. This summary normalizes information from multiple sources, and as a consequence, information in this document may ma terially change the coding, format and clinical context of patient data. In perla tion, data may be omitted in some cases. CLINICAL DECISIONS SHOULD BE BASED ON T HE PRIMARY CLINICAL RECORDS. [employer] provides no warranty or guara ntee of the accuracy or completeness of information in this document.The followi information is based on time limited clinical information UNRECOGNIZED CONTENT PROVIDED BELOW FOR UNRECOGNIZED SECTION REASON FOR VISIT f/uBH f/uRequests return call f/uBH f/uBH f/u Shannon f/uBH f/u Amalia otRNpt reports she stepped on a piece of glass with her right foot. not visible to the eye. no broken skin. no tdap required. Victor HugoH f/uBH f/uBH f/uBH f/u
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
--- OUTSIDE RECORDS SUMMARY | 2019-12-07 19:09 | XMS REPORT ---
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 Unknown Non Drug Allergy May, Unknown SOCIAL HISTORY No smoking Hx information available PLAN OF CARE Activity Details Follow Up 4 Weeks Reason: VITAL SIGNS Height 65 in 2016-06-01 Weight 220 lbs 2016-06-01 BMI 36.61 kg/m2 2016-06-01 Blood pressure systolic 138 mmHg 2016-06-01 Blood pressure diastolic 74 mmHg 2016-06-01 MEDICATIONS Medication Instructions Dosage Frequency Start Date End Date Duration S tatus Docusate Sodium 100 MG Orally 2 times a day 1 capsule 12h Active Omeprazole 20 MG Orally Once a day 1 capsule 24h Active Acetaminophen Active Vitamin B 12 100 MCG Orally Once a day 24h Active Polyethyl Glycol-Propyl Glycol Active Melatonin 3 MG Orally Once a day 1 tablet 24h Active Depo-Provera Active Cetirizine HCl 10 MG Orally Once a day 1 tablet 24h Active RESULTS No Results PROCEDURES Procedure Date Ordered Related Diagnosis Body Site MH Office Visit, Est Pt., Level 3 Jun 01, 2016 IMMUNIZATIONS No Known Immunizations
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
--- OUTSIDE RECORDS SUMMARY | 2019-12-07 19:09 | XMS REPORT ---
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 59317213 Problem Intermittent explosive disorder in adult F63.81 Active 887839159 ALLERGIES No Information SOCIAL HISTORY Never Assessed PLAN OF CARE Activity Details Follow Up Recall Reason: VITAL SIGNS MEDICATIONS Unknown Medications RESULTS No Results PROCEDURES Procedure Date Ordered Result Body Site RESIN COMPOS - ONE SURFACE ANTERIOR Jun 29, 2016 Dental Outreach adjust balance Jun 29, 2016 Billing Notes on claim Jun 29, 2016 IMMUNIZATIONS No Known Immunizations MEDICAL (GENERAL) HISTORY Type Description Date Medical History Bipolar affective disorder, remission st atus unspecified Medical History Intermittent explosive disorder Medical History PTSD (post-traumatic stress disorder)
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
--- OUTSIDE RECORDS SUMMARY | 2019-12-07 19:09 | XMS REPORT ---
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 84795437 Problem Intermittent explosive disorder in adult F63.81 Active 001310812 ALLERGIES Unknown Allergies SOCIAL HISTORY No smoking Hx information available PLAN OF CARE Activity Details Follow Up prn Reason:restorative VITAL SIGNS MEDICATIONS Medication Instructions Dosage Frequency Start Date End Date Duration S tatus Fluconazole Active Depo-Provera Active Melatonin Active Acetaminophen Active Cetirizine HCl Active Omeprazole Active Docusate Sodium Active Polyethyl Glycol-Propyl Glycol Active Vitamin B 12 Active RESULTS No Results PROCEDURES Procedure Date Ordered Related Diagnosis Body Site COMP ORAL EVALUATION - NEW/EST PT Apr 13, 2016 INTRAORL-PERIAPICAL 1 FILM 31055 Apr 13, 2016 INTRAORL-PERIAPICAL 1 FILM 78329 Apr 13, 2016 INTRAORL-PERIAPICAL 1 FILM 42665 Apr 13, 2016 BITEWINGS - FOUR FILMS Apr 13, 2016 IMMUNIZATIONS No Known Immunizations
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
--- OUTSIDE RECORDS SUMMARY | 2019-12-07 19:10 | XMS REPORT ---
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 35877355 Problem Intermittent explosive disorder in adult F63.81 Active 857910937 ALLERGIES No Known Allergies SOCIAL HISTORY Never Assessed PLAN OF CARE VITAL SIGNS MEDICATIONS Medication Instructions Dosage Frequency Start Date End Date Duration S tatus Docusate Sodium 100 MG Orally 2 times a day 1 capsule 12h Active Polyethyl Glycol-Propyl Glycol Active Vitamin B 12 100 MCG Orally Once a day 24h Active Omeprazole 20 MG Orally Once a day 1 capsule 24h Active Cetirizine HCl 10 MG Orally Once a day 1 tablet 24h Active Acetaminophen Active Depo-Provera Active Zyrtec Allergy 10 MG Orally Once a day 1 tablet 24h Active Melatonin 3 MG Orally Once a day 1 tablet 24h Active RESULTS No Results PROCEDURES Procedure Date Ordered Result Body Site PROPHYLAXIS - ADULT July 12, 2016 TOPICAL FLUORIDE VARNISH July 12, 2016 IMMUNIZATIONS No Known Immunizations MEDICAL (GENERAL) HISTORY Type Description Date Medical History Bipolar affective disorder, remission st atus unspecified Medical History Intermittent explosive disorder Medical History PTSD (post-traumatic stress disorder)
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
--- OUTSIDE RECORDS SUMMARY | 2019-12-07 19:11 | XMS REPORT ---
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 70052243 Problem Intermittent explosive disorder in adult F63.81 Active 754372959 ALLERGIES No Information SOCIAL HISTORY Never Assessed PLAN OF CARE Activity Details Follow Up 3 Months Reason: VITAL SIGNS Height 65 in 2016-07-06 Weight 212 lbs 2016-07-06 Heart Rate 78 bpm 2016-07-06 Respiratory Rate 20 2016-07-06 BMI 35.27 kg/m2 2016-07-06 Blood pressure systolic 128 mmHg 2016-07-06 Blood pressure diastolic 76 mmHg 2016-07-06 MEDICATIONS Medication Instructions Dosage Frequency Start Date End Date Duration S tatus Polyethyl Glycol-Propyl Glycol Active Docusate Sodium 100 MG Orally 2 times a day 1 capsule 12h Active Omeprazole 20 MG Orally Once a day 1 capsule 24h Active Depo-Provera Active Vitamin B 12 100 MCG Orally Once a day 24h Active Cetirizine HCl 10 MG Orally Once a day 1 tablet 24h Active Acetaminophen Active Melatonin 3 MG Orally Once a day 1 tablet 24h Active RESULTS No Results PROCEDURES No Known procedures IMMUNIZATIONS No Known Immunizations MEDICAL (GENERAL) HISTORY Type Description Date Medical History Bipolar affective disorder, remission st atus unspecified Medical History Intermittent explosive disorder Medical History PTSD (post-traumatic stress disorder)
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
--- OUTSIDE RECORDS SUMMARY | 2019-12-07 19:11 | XMS REPORT | Continuity of Care Document ---
Demographics Preferred Language Unknown Marital Status Unknown Shinto Affiliation Unknown Race Unknown Ethnic Group Unknown Author Organization Unknown Address Unknown Phone Unavailable Allergies Active Description Code Type Severity Reaction Onset Reported/Identified Relationship to Patient Clinical Status Yes NO KNOWN DRUG ALLERGIES UNKNOWN NO KNOWN DRUG ALLERG Yes NO KNOWN DRUG ALLERGIES UNKNOWN UNKNOWN Yes No Known Drug Allergies [id number] Drug Allergy Unknown N/A 05/26/2016 Medications Medication Packaging Start Date St op Date Route Dosage Sig ADENOSINE VIAL INJ 12mg/4 mL (Adenocard) MG 01/28/2019 01/28/2019 ONCE&2253 SMZ/TMP DS TAB (SEPTRA DS) (Bactrim DS) TAB 01/29/2019 01/29/2019 ONCE&0105 NORMAL SALINE 1000CC IV BAG INJ 0.9 % (NS 1000CC IV BAG) ml 07/12/2019 07/27/2019 CONTINUOUSEVERY 0 Hour LACTATED RINGERS 1000CC IV BAG INJ ml 07/12/2019 07/19/2019 CONTINUOUSEVERY 0 Hour Problems Date Dx Coded Attending Type Code Diagnosis Diagnosed By 04/28/2016 CECY ROMERO PROGRAM PLANNER Ot N63 UNSPECIFIED LUMP IN BREAST 05/18/2016 CECY ROMERO PROGRAM PLANNER Ot N63 UNSPECIFIED LUMP IN BREAST 05/26/2016 CECY ROMERO PROGRAM PLANNER Ot N63 UNSPECIFIED LUMP IN BREAST 05/26/2016 JOSHUA, BRENDAN PROGRAM PLANNER Ot F41.9 ANXIETY DISORDER, UNSPECIFIED 05/26/2016 JOSHUA, BRENDAN PROGRAM PLANNER Ot R00.2 PALPITATIONS 05/26/2016 JOSHUA, BRENDAN PROGRAM PLANNER Ot R10.13 EPIGASTRIC PAIN 05/27/2016 JOSHUA, BRENDAN PROGRAM PLANNER Ot F41.9 ANXIETY DISORDER, UNSPECIFIED 05/27/2016 JOSHUA, BRENDAN PROGRAM PLANNER Ot R00.2 PALPITATIONS 05/27/2016 JOSHUA, BRENDAN PROGRAM PLANNER Ot R10.13 EPIGASTRIC PAIN 06/29/2016 JOSHUA, BRENDAN PROGRAM PLANNER Ot F41.9 ANXIETY DISORDER, UNSPECIFIED 06/29/2016 JOSHUA, BRENDAN PROGRAM PLANNER Ot R00.2 PALPITATIONS 06/29/2016 JOSHUA, BRENDAN PROGRAM PLANNER Ot R10.13 EPIGASTRIC PAIN 01/31/2017 W 293.83 MOO D DISORDER IN CONDITIONS CLASSIFIED ELSEWHERE 01/31/2017 W 312.34 INT ERMITTENT EXPLOSIVE DISORDER 01/31/2017 W 317 MILD I NTELLECTUAL DISABILITIES 01/31/2017 W 346.90 BANDAR REINALDO, UNSPECIFIED, WITHOUT MENTION OF INTRACTABLE MIGRAINE, WITHOUT MENTION OF STATUS MIGRAINOSUS 01/31/2017 W 493.90 AST HMA, UNSPECIFIED 01/31/2017 W 530.81 ESO PHAGEAL REFLUX 01/31/2017 W 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 01/31/2017 W F63.81 INT ERMITTENT EXPLOSIVE DISORDER 01/31/2017 W F70 MILD I NTELLECTUAL DISABILITIES 01/31/2017 W G43.909 DE GRAINE, UNSPECIFIED, NOT INTRACTABLE, WITHOUT STATUS MIGRAINOSUS 01/31/2017 W J45.20 MIL D INTERMITTENT ASTHMA, UNCOMPLICATED 01/31/2017 W P78.83 NEW BORN ESOPHAGEAL REFLUX 06/12/2017 W N92.1 EXCE SSIVE AND FREQUENT MENSTRUATION WITH IRREGULAR CYCLE 06/12/2017 W V25.04 SARA HILL FOR COUNSELING AND INSTRUCTION IN NATURAL FAMILY PLANNING TO AVOID 07/19/2017 W 041.01 JOSELYN UP A STREPTOCOCCUS INFECTION IN CONDITIONS CLASSIFIED ELSEWHERE AND OF UNSPECIFIED SITE 07/19/2017 W 462 ACUTE PHARYNGITIS 07/19/2017 W B95.0 STRE PTOCOCCUS, GROUP A, THE CAUSE OF DISEASES CLASSIFIED ELSEWHERE 07/19/2017 W J02.9 ACUT E PHARYNGITIS, UNSPECIFIED 04/19/2018 HIGINIO ENGEL 271.1 GALACTOSEMIA 04/19/2018 HIGINIO ENGEL E74.21 GALACTOSEMIA 04/19/2018 HIGINIO ENGEL V69.2 HIGH- RISK SEXUAL BEHAVIOR 04/19/2018 HIGINIO ENGEL Z72.51 HIGH RISK HETEROSEXUAL BEHAVIOR 04/19/2018 HIGINIO ENGEL 271.1 GALACTOSEMIA 04/19/2018 HIGINIO ENGEL E74.21 GALACTOSEMIA 04/19/2018 HIGINIO ENGEL V69.2 HIGH- RISK SEXUAL BEHAVIOR 04/19/2018 HIGINIO ENGEL Z72.51 HIGH RISK HETEROSEXUAL BEHAVIOR 04/19/2018 W 271.1 GALA CTOSEMIA 04/19/2018 W E74.21 GAL ACTOSEMIA 04/19/2018 W V69.2 HIGH -RISK SEXUAL BEHAVIOR 04/19/2018 W Z72.51 HIG H RISK HETEROSEXUAL BEHAVIOR 04/19/2018 ENGELIRISHIGINIO W 271.1 GALACTOSEMIA 04/19/2018 HIGINIO ENGEL W E74.21 GALACTOSEMIA 04/19/2018 HIGINIO ENGEL W V69.2 HIGH- RISK SEXUAL BEHAVIOR 04/19/2018 ENGELIRISHIGINIO W Z72.51 HIGH RISK HETEROSEXUAL BEHAVIOR 05/07/2018 W 034.0 STRE PTOCOCCAL SORE THROAT 05/07/2018 W B95.3 STRE PTOCOCCUS PNEUMONIAE THE CAUSE OF DISEASES CLASSIFIED ELSEWHERE 05/18/2018 W 616.10 VAG INITIS AND VULVOVAGINITIS, UNSPECIFIED 05/18/2018 W N76.0 ACUT E VAGINITIS 05/22/2018 CECY ROMERO PROGRAM PLANNER Ot N63 UNSPECIFIED LUMP IN BREAST 05/23/2018 TORO CARVALHO, HIGINIO Torres Ot N64.3 GALACTORRHEA NOT ASSOCIATED WITH CHILDBI 06/04/2018 W 703.0 INGR OWING NAIL 06/04/2018 W L60.0 INGR OWING NAIL 06/13/2018 TORO CARVALHO, HIGINIO L Ot N64.3 GALACTORRHEA NOT ASSOCIATED WITH CHILDBI 08/09/2018 HIGINIO ENGEL W 401.0 MALIGNANT ESSENTIAL HYPERTENSION 08/09/2018 TORO HIGINIO W I10 ESSENTIAL (PRIMARY) HYPERTENSION 08/09/2018 HIGINIO ENGEL W 272.4 OTHER AND UNSPECIFIED HYPERLIPIDEMIA 08/09/2018 HIGINIO ENGEL W 401.0 MALIGNANT ESSENTIAL HYPERTENSION 08/09/2018 HIGINIO ENGEL W E78.5 HYPERLIPIDEMIA, UNSPECIFIED 08/09/2018 HIGINIO ENGEL W I10 ESSENTIAL (PRIMARY) HYPERTENSION 08/09/2018 W 272.4 OTHE R AND UNSPECIFIED HYPERLIPIDEMIA 08/09/2018 W 401.0 JEFFREY GNANT ESSENTIAL HYPERTENSION 08/09/2018 W 786.05 CANDACE RTNESS OF BREATH 08/09/2018 W E78.5 HYPE RLIPIDEMIA, UNSPECIFIED 08/09/2018 W I10 ESSENT IAL (PRIMARY) HYPERTENSION 08/09/2018 W R06.02 CANDACE RTNESS OF BREATH 08/09/2018 HIGINIO ENGEL W 272.4 OTHER AND UNSPECIFIED HYPERLIPIDEMIA 08/09/2018 HIGINIO ENGEL W 401.0 MALIGNANT ESSENTIAL HYPERTENSION 08/09/2018 HIGINIO ENGEL W E78.5 HYPERLIPIDEMIA, UNSPECIFIED 08/09/2018 HIGINIO ENGEL W I10 ESSENTIAL (PRIMARY) HYPERTENSION 08/28/2018 W 034.0 STRE PTOCOCCAL SORE THROAT 08/28/2018 W B95.3 STRE PTOCOCCUS PNEUMONIAE THE CAUSE OF DISEASES CLASSIFIED ELSEWHERE 09/03/2018 W 477.8 LEONORA RGIC RHINITIS DUE TO OTHER ALLERGEN 09/03/2018 W 786.2 COUGH 09/03/2018 W J30.2 OTHE R SEASONAL ALLERGIC RHINITIS 09/03/2018 W R05 COUGH 01/14/2019 Cheri Romero 461.9 ACUTE SINUSITIS, UNSPECIFIED 01/14/2019 Cheri Romero J01.90 ACUTE SINUSITIS, UNSPECIFIED 01/14/2019 Cheri Romero 461.9 ACUTE SINUSITIS, UNSPECIFIED 01/14/2019 Cheri Romero J01.90 ACUTE SINUSITIS, UNSPECIFIED 01/14/2019 Cheri Romero 461.9 ACUTE SINUSITIS, UNSPECIFIED 01/14/2019 Cheri Romero J01.90 ACUTE SINUSITIS, UNSPECIFIED 01/14/2019 Cheri Romero 461.9 ACUTE SINUSITIS, UNSPECIFIED 01/14/2019 Cheri Romero W 466.0 ACUTE BRONCHITIS 01/14/2019 Cheri Romero J01.90 ACUTE SINUSITIS, UNSPECIFIED 01/14/2019 Cheri Romero J20.9 ACUTE BRONCHITIS, UNSPECIFIED 01/14/2019 Cheri Romero 461.9 ACUTE SINUSITIS, UNSPECIFIED 01/14/2019 Cheri Romero W 466.0 ACUTE BRONCHITIS 01/14/2019 Cheri Romero J01.90 ACUTE SINUSITIS, UNSPECIFIED 01/14/2019 Cheri Romero J20.9 ACUTE BRONCHITIS, UNSPECIFIED 01/14/2019 Cheri Romero V25.9 UNSPECIFIED CONTRACEPTIVE MANAGEMENT 01/14/2019 Cheri Romero Z30.9 ENCOUNTER FOR CONTRACEPTIVE MANAGEMENT, UNSPECIFIED 01/14/2019 Cheri Romero 461.9 ACUTE SINUSITIS, UNSPECIFIED 01/14/2019 Cheri Romero 466.0 ACUTE BRONCHITIS 01/14/2019 Cheri Romero J01.90 ACUTE SINUSITIS, UNSPECIFIED 01/14/2019 Cheri Romero J20.9 ACUTE BRONCHITIS, UNSPECIFIED 01/14/2019 Cheri Romero V25.9 UNSPECIFIED CONTRACEPTIVE MANAGEMENT 01/14/2019 Cheri Romero Z30.9 ENCOUNTER FOR CONTRACEPTIVE MANAGEMENT, UNSPECIFIED 01/14/2019 Cheri Romero 461.9 ACUTE SINUSITIS, UNSPECIFIED 01/14/2019 Cheri Romero 466.0 ACUTE BRONCHITIS 01/14/2019 Cheri Romero J01.90 ACUTE SINUSITIS, UNSPECIFIED 01/14/2019 Cheri Romero J20.9 ACUTE BRONCHITIS, UNSPECIFIED 01/14/2019 Cheri Romero V25.9 UNSPECIFIED CONTRACEPTIVE MANAGEMENT 01/14/2019 Cheri Romero Z30.9 ENCOUNTER FOR CONTRACEPTIVE MANAGEMENT, UNSPECIFIED 01/21/2019 Cheri Romero 719.43 PAIN IN JOINT INVOLVING FOREARM 01/21/2019 Cheri Romero M25.531 PAIN IN RIGHT WRIST 01/21/2019 Cheri Romero 719.42 PAIN IN JOINT INVOLVING UPPER ARM 01/21/2019 Cheri Romero 719.43 PAIN IN JOINT INVOLVING FOREARM 01/21/2019 Cheri Romero M25.521 PAIN IN RIGHT ELBOW 01/21/2019 Cheri Romero M25.531 PAIN IN RIGHT WRIST 01/21/2019 Cheri Romero 719.42 PAIN IN JOINT INVOLVING UPPER ARM 01/21/2019 Cheri Romero 719.43 PAIN IN JOINT INVOLVING FOREARM 01/21/2019 Cheri Romero M25.521 PAIN IN RIGHT ELBOW 01/21/2019 Cheri Romero M25.531 PAIN IN RIGHT WRIST 01/21/2019 CECY ROMERO PROGRAM PLANNER Ot N63 UNSPECIFIED LUMP IN BREAST 01/21/2019 HIGINIO ENGEL MD Ot N64.3 GALACTORRHEA NOT ASSOCIATED WITH CHILDBI 01/21/2019 CECY ROMERO PROGRAM PLANNER Ot N63 UNSPECIFIED LUMP IN BREAST 01/21/2019 HIGINIO ENGEL MD Ot N64.3 GALACTORRHEA NOT ASSOCIATED WITH CHILDBI 01/21/2019 Cheri Romero 719.42 PAIN IN JOINT INVOLVING UPPER ARM 01/21/2019 Cheri Romero 719.43 PAIN IN JOINT INVOLVING FOREARM 01/21/2019 Cheri Romero M25.521 PAIN IN RIGHT ELBOW 01/21/2019 Cheri Romero M25.531 PAIN IN RIGHT WRIST 01/23/2019 CECY ROMERO PROGRAM PLANNER Ot S59.901A UNSPECIFIED INJURY OF RIGHT ELBOW, INITI 01/23/2019 CECY ROMERO PROGRAM PLANNER Ot S59.911A UNSPECIFIED INJURY OF RIGHT FOREARM, INI 01/23/2019 CECY ROMERO PROGRAM PLANNER Ot S69.91XA UNSP INJURY OF RIGHT WRIST, HAND AND FIN 01/23/2019 CECY ROMERO PROGRAM PLANNER Ot W19.XXXA UNSPECIFIED FALL, INITIAL ENCOUNTER 01/29/2019 DAVID GONZALEZ 427.8 9 OTHER SPECIFIED CARDIAC DYSRHYTHMIAS 01/29/2019 DAVID GONZALEZ 599.0 URINARY TRACT INFECTION, SITE NOT SPECIFIED 01/29/2019 DAVID GONZALEZ I47.1 SUPRAVENTRICULAR TACHYCARDIA 01/29/2019 DAVID GONZALEZ N39.0 URINARY TRACT INFECTION, SITE NOT SPECIFIED 01/29/2019 HIGINIO ENGEL W 427.0 PAROXYSMAL SUPRAVENTRICULAR TACHYCARDIA 01/29/2019 HIGINIO ENGEL W I47.1 SUPRAVENTRICULAR TACHYCARDIA 01/29/2019 HIGINIO ENGEL W 427.0 PAROXYSMAL SUPRAVENTRICULAR TACHYCARDIA 01/29/2019 HIGINIO ENGEL W I47.1 SUPRAVENTRICULAR TACHYCARDIA 01/29/2019 HIGINIO ENGEL W 427.0 PAROXYSMAL SUPRAVENTRICULAR TACHYCARDIA 01/29/2019 HIGINIO ENGEL W I47.1 SUPRAVENTRICULAR TACHYCARDIA 01/29/2019 HIGINIO ENGEL W 427.0 PAROXYSMAL SUPRAVENTRICULAR TACHYCARDIA 01/29/2019 HIGINIO ENGEL W I47.1 SUPRAVENTRICULAR TACHYCARDIA 04/28/2019 Rigoberto Zabala B97.89 OTH VIRAL AGENTS THE CAUSE OF DISEASES CLASSD ELSWH R 04/28/2019 Evelio Byrne B97.89 OTH VIRAL AGENTS THE CAUSE OF DISEASES CLASSD ELSWHR 04/28/2019 Evelio Byrne B97.89 OTH VIRAL AGENTS THE CAUSE OF DISEASES CLASSD ELSWHR 07/12/2019 Rigoberto Zabala B95.0 STREPTOCOCCUS, GROUP A, CAUSING DISEASES CLASSD ELSWHR 07/12/2019 Rigoberto Zabala B95.3 STREPTOCOCCUS PNEUMONIAE CAUSING DISEASES CLASSD ELSWH R 07/12/2019 Rigoberto Zabala E74.21 GALACTOSEMIA 07/12/2019 Rigoberto Zabala E78.5 HYPERLIPIDEMIA, UNSPECIFIED 07/12/2019 Rigoberto Zabala 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 07/12/2019 Rigoberto Zabala F63.81 INTERMITTENT EXPLOSIVE DISORDER 07/12/2019 Rigoberto Zabala F 70 MILD INTELLECTUAL DISABILITIES 07/12/2019 Rigoberto Zabala G43.909 MIGRAINE, UNSP, NOT INTRACTABLE, WITHOUT STATUS MIGRAI NOSUS 07/12/2019 Rigoberto Zabala I 10 ESSENTIAL (PRIMARY) HYPERTENSION 07/12/2019 Rigoberto Zabala I45.4 NONSPECIFIC INTRAVENTRICULAR BLOCK 07/12/2019 Rigoberto Zabala I47.1 SUPRAVENTRICULAR TACHYCARDIA 07/12/2019 Rigoberto Zabala J01.90 ACUTE SINUSITIS, UNSPECIFIED 07/12/2019 Rigoberto Zabala J02.9 ACUTE PHARYNGITIS, UNSPECIFIED 07/12/2019 Rigoberto Zabala J20.9 ACUTE BRONCHITIS, UNSPECIFIED 07/12/2019 Rigoberto Zabala J30.2 OTHER SEASONAL ALLERGIC RHINITIS 07/12/2019 Rigoberto Zabala L60.0 INGROWING NAIL 07/12/2019 Rigoberto Zabala M25.521 PAIN IN RIGHT ELBOW 07/12/2019 Rigoberto Zabala M25.531 PAIN IN RIGHT WRIST 07/12/2019 Riogberto Zabala N39.0 URINARY TRACT INFECTION, SITE NOT SPECIFIED 07/12/2019 Rigoberto Zabala N76.0 ACUTE VAGINITIS 07/12/2019 Rigoberto Zabala R 05 COUGH 07/12/2019 Rigoberto Zabala R06.02 SHORTNESS OF BREATH 07/12/2019 Rigoberto Zabala Z30.9 ENCOUNTER FOR CONTRACEPTIVE MANAGEMENT, UNSPECIFIED 07/12/2019 Rigoberto Zabala Z72.51 HIGH RISK HETEROSEXUAL BEHAVIOR 07/23/2019 CECY ROMERO PROGRAM PLANNER Ot S59.901A UNSPECIFIED INJURY OF RIGHT ELBOW, INITI 07/23/2019 CECY ROMERO PROGRAM PLANNER Ot S59.911A UNSPECIFIED INJURY OF RIGHT FOREARM, INI 07/23/2019 CECY ROMERO PROGRAM PLANNER Ot S69.91XA UNSP INJURY OF RIGHT WRIST, HAND AND FIN 07/23/2019 CECY ROMERO PROGRAM PLANNER Ot W19.XXXA UNSPECIFIED FALL, INITIAL ENCOUNTER 08/08/2019 Evelio Byrne W 427.89 OTHER SPECIFIED CARDIAC DYSRHYTHMIAS 08/08/2019 Evelio Byrne W I45.4 NONSPECIFIC INTRAVENTRICULAR BLOCK 08/08/2019 Evelio Byrne W 427.89 OTHER SPECIFIED CARDIAC DYSRHYTHMIAS 08/08/2019 Evelio Byrne I45.4 NONSPECIFIC INTRAVENTRICULAR BLOCK 08/08/2019 Evelio Byrne W 427.89 OTHER S 08/08/2019 Chavez Evelio W B95.0 STREPTOCOCCUS, GROUP A, CAUSING DISEASES CLASSD ELSWHR 08/08/2019 Evelio Byrne B95.3 STREPTOCOCCUS PNEUMONIAE CAUSING DISEASES CLASSD ELSWHR 08/08/2019 Evelio Byrne W E74.21 GALACTOSEMIA 08/08/2019 Evelio Byrne W E78.5 HYPERLIPIDEMIA, UNSPECIFIED 08/08/2019 Evelio Byrne W 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 08/08/2019 Evelio Byrne W F63.81 INTERMITTENT EXPLOSIVE DISORDER 08/08/2019 Evelio Byrne W F70 MILD INTELLECTUAL DISABILITIES 08/08/2019 Evelio Byrne G43.909 MIGRAINE, UNSP, NOT INTRACTABLE, WITHOUT STATUS MIGRAINOSUS 08/08/2019 Evelio Byrne W I10 ESSENTIAL (PRIMARY) HYPERTENSION 08/08/2019 Evelio Byrne W I45.4 NONSPECIFIC INTRAVENTRICULAR BLOCK 08/08/2019 Evelio Byrne I47.1 SUPRAVENTRICULAR TACHYCARDIA 08/08/2019 Evelio Byrne J01.90 ACUTE SINUSITIS, UNSPECIFIED 08/08/2019 Evelio Byrne J02.9 ACUTE PHARYNGITIS, UNSPECIFIED 08/08/2019 Evelio Byrne J20.9 ACUTE BRONCHITIS, UNSPECIFIED 08/08/2019 Evelio Byrne W J30.2 OTHER SEASONAL ALLERGIC RHINITIS 08/08/2019 Brown, Evelio W L60.0 INGROWING NAIL 08/08/2019 Brown, Evelio W M25.521 PAIN IN RIGHT ELBOW 08/08/2019 Brown, Evelio W M25.531 PAIN IN RIGHT WRIST 08/08/2019 Brown, Evelio W N39.0 URINARY TRACT INFECTION, SITE NOT SPECIFIED 08/08/2019 Brown, Evelio W N76.0 ACUTE VAGINITIS 08/08/2019 Chavez, Evelio W R05 COUGH 08/08/2019 Brown, Evelio W R06.02 SHORTNESS OF BREATH 08/08/2019 Brown, Evelio W Z30.9 ENCOUNTER FOR CONTRACEPTIVE MANAGEMENT, UNSPECIFIED 08/08/2019 Chavez, Evelio W Z72.51 HIGH RISK HETEROSEXUAL BEHAVIOR 09/20/2019 Wily Byrnelas W B35.4 TINEA CORPORIS 10/17/2019 Brown, Evelio W 719.41 PAIN IN JOINT INVOLVING SHOULDER REGIO 10/17/2019 Chavez, Evelio W B95.0 STREPTOCOCCUS, GROUP A, CAUSING DISEASES CLASSD [facility] 10/17/2019 Chavez Evelio W B95.3 STREPTOCOCCUS PNEUMONIAE CAUSING DISEASES CLASSD [facility] 10/17/2019 Chavez, Evelio W E74.21 GALACTOSEMIA 10/17/2019 Brown, Evelio W E78.5 HYPERLIPIDEMIA, UNSPECIFIED 10/17/2019 Chavez, Evelio W F63.81 INTERMITTENT EXPLOSIVE DISORDER 10/17/2019 Chavez, Evelio W F70 MILD INTELLECTUAL DISABILITIES 10/17/2019 Chavez, Evelio G43.909 MIGRAINE, UNSP, NOT INTRACTABLE, WITH 10/17/2019 Chavez, Evelio W I10 ESSENTIAL (PRIMARY) HYPERTENSION 10/17/2019 Chavez, Evelio W I45.4 NONSPECIFIC INTRAVENTRICULAR BLOCK 10/17/2019 Chavez, Evelio W I47.1 SUPRAVENTRICULAR TACHYCARDIA 10/17/2019 Chavez, Evelio W J01.90 ACUTE SINUSITIS, UNSPECIFIED 10/17/2019 Chavez, Evelio W J02.9 ACUTE PHARYNGITIS, UNSPECIFIED 10/17/2019 Chavez, Evelio W J20.9 ACUTE BRONCHITIS, UNSPECIFIED 10/17/2019 Brown, Evelio W J30.2 OTHER SEASONAL ALLERGIC RHINITIS 10/17/2019 Chavez, Evelio W L60.0 INGROWING NAIL 10/17/2019 Chavez, Evelio W M25.512 PAIN IN LEFT SHOULDER 10/17/2019 Evelio Byrne W M25.521 PAIN IN RIGHT ELBOW 10/17/2019 Evelio Byrne W M25.531 PAIN IN RIGHT WRIST 10/17/2019 Evelio Byrne W N39.0 URINARY TRACT INFECTION, SITE NOT SPECIFIED 10/17/2019 Evelio Byrne W N76.0 ACUTE VAGINITIS 10/17/2019 Evelio Byrne W R06.02 SHORTNESS OF BREATH 10/17/2019 Evelio Byrne W Z30.9 ENCOUNTER FOR CONTRACEPTIVE MANAGEMENT, UNSPECIFIED 10/17/2019 Evelio Byrne W Z72.51 HIGH RISK HETEROSEXUAL BEHAVIOR 10/22/2019 Cheri Romero W N76.0 ACUTE VAGINITIS 10/24/2019 Evelio Byrne W 719.41 PAIN IN JOINT INVOLVING SHOULDER REGION 10/24/2019 Evelio Byrne W M25.512 PAIN IN LEFT SHOULDER Procedures There is no data. Results Test Result Range Pap Smear - 04/08/16 13:00 Pap Smear Sent to Pathology Prolactin - 04/19/18 15:33 Prolactin 15.3 ng/mL 4.8-23.3 Panel [id number] - 04/19/18 15:33 HIV Screen 4th Generation wRfx Non Reactive Non Reactive HCV Antibody - 04/19/18 15:33 Hep C Virus Ab <0.1 s/co ratio 0.0-0.9 RPR - 04/19/18 15:33 RPR Non Reactive Non Reactive Prolactin - 04/19/18 15:33 PROLACTIN 15.3 NG/ML 4.8-23.3 Chlamydia/GC Amplification - 04/19/18 15 :33 CHLAMYDIA TRACHOMATIS, CHERIE NEGATIVE NEG ATIVE NEISSERIA GONORRHOEAE, CHERIE NEGATIVE NEG ATIVE Chlamydia/GC Amplification - 04/19/18 15 :33 Chlamydia trachomatis, CHERIE Negative Neg ative Neisseria gonorrhoeae, CHERIE Negative Neg ative Chlamydia/GC Amplification - 05/18/18 14 :00 Chlamydia trachomatis, CHERIE Negative Neg ative Neisseria gonorrhoeae, CHERIE Negative Neg ative Other Culture - 05/18/18 14:00 PRELIM CULTURE RESULTS No Growth 24 hours FINAL CULTURE RESULTS No Growth 48 hours MEDIA PLATED Setup at 17:13 on 05/18/2018 Chlamydia/GC Amplification - 05/18/18 14 :00 CHLAMYDIA TRACHOMATIS, CHERIE NEGATIVE NEG ATIVE NEISSERIA GONORRHOEAE, CHERIE NEGATIVE NEG ATIVE Lipid Panel - 08/09/18 14:55 C/HDL 5.1 3.7-6.7 Cholesterol 219 mg/dL 100-240 HDL 43 mg/dL 30-85 LDL-Calculated 154 mg/dL 0-100 Trig 108 mg/dL 35-160 VLDL 22 mg/dL 0-42 EKG - 01/28/19 22:40 EKG Complete Comprehensive Metabolic Panel - 01/28/19 22:50 Albumin 4.5 g/dL 3.6-5.1 ALP 79 U/L 35-130 ALT 26 U/L 6-45 Anion Gap 17 6-14 AST 21 U/L 2-40 BUN 10 mg/dL 5-25 Calcium 9.3 mg/dL 8.3-10.4 Chloride 111 mmol/L 95-114 CO2 18 mEq/L 22-33 Creat 0.74 mg/dL 0.50-1.50 eGFR 92 mL/min/1.73m2 >59 Globulin 3.0 g/dL 2.3-3.5 Glucose 111 mg/dL 70-110 Osmo 293 280-295 Potassium 4.2 mmol/L 3.5-5.3 Sodium 142 mmol/L 134-148 TBil 0.3 mg/dL 0.2-1.2 TP 7.5 g/dL 6.0-8.3 Troponin I - 01/28/19 22:50 Troponin <0.020 ng/mL 0.0-0.4 Valproic Acid - 01/28/19 22:50 Valproic Acid 17.5 ug/mL 55.0-105.0 Thyroid Stimulating Hormone - 01/28/19 2 2:50 TSH 3.40 mIU/mL 0.32-5.00 EKG - 01/28/19 23:00 EKG Complete Urinalysis - 01/28/19 23:45 Icotest N/A Negative Urine Volume Urine Volume Sufficient (10mL) Urine Yeast No Yeast present Urine-Appearance Slightly Cloudy Clear Urine-Bacteria 1+ Urine-Bilirubin Negative Negative Urine-Blood Trace-lysed Negative Urine-Color Yellow Colorless-Lt. [place] ow Urine-Epithelial Cells 5-10/HPF Urine-Glucose Negative Negative Urine-Ketones Negative Negative Urine-Leukocytes 1+ Negative Urine-Mucus 1+ Urine-Nitrite Negative Negative Urine-Other Culture to follow Urine-pH 5.5 5-8.5 Urine-Protein Negative Negative Urine-RBC 0-2/HPF Urine-Specific [place] 1.025 1.000-1 .030 Urine-WBC 20-40/HPF Urobilinogen 0.2 0.2-1.0 Urine Culture - 01/28/19 23:59 PRELIM CULTURE RESULTS 10,000-20,000 Gram Po sitive Mixed [place] [id number] Skin Contaminant FINAL CULTURE RESULTS 20,000-50,000 Gram Pos itive Mixed [place] [id number] Skin Contaminant [id number] Further Workup done MEDIA PLATED Setup at 00:04 on 01/29/2019 CULTURE SOURCE random clean catch Urine Culture - 01/28/19 23:59 PRELIM CULTURE RESULTS 10,000-20,000 Gram Po sitive Mixed [place] [id number] Skin Contaminant MEDIA PLATED Setup at 00:04 on 01/29/2019 CULTURE SOURCE random clean catch IGP, Aptima HPV, rfx 16/18,45 - 04/23/19 13:30 HPV Aptima Negative Negative DIAGNOSIS: Comment Specimen adequacy: Comment Performed by: Comment QC reviewed by: Comment . . Note: Comment Test Methodology: Comment Chlamydia/GC Amplification - 04/23/19 13 :30 CHLAMYDIA TRACHOMATIS, CHERIE NEGATIVE NEG ATIVE NEISSERIA GONORRHOEAE, CHERIE NEGATIVE NEG ATIVE Rapid Plasma Reagin (RPR), Qualitative T est - 04/23/19 13:30 RPR NON REACTIVE NON REACTIVE HCV Antibody - 04/23/19 13:30 Hep C Virus Ab <0.1 s/co ratio 0.0-0.9 RPR - 04/23/19 13:30 RPR Non Reactive Non Reactive Chlamydia/GC Amplification - 04/23/19 13 :30 Chlamydia trachomatis, CHERIE Negative Neg ative Neisseria gonorrhoeae, CHERIE Negative Neg ative CBC with Auto Diff - 05/22/19 09:40 Baso% 0.30 % 0.00-2.50 Eos 0.1 K/uL 0.0-0.7 Eos% 1.6 % 0.0-7.0 Hct 40.6 % 36.0-46.0 Hgb 14.2 g/dL 13.0-15.0 Lym 2.85 K/uL 0.60-3.40 Lym% 42.2 % 10.0-50.0 MCH 29.9 pg 27.0-31.0 MCHC 35.0 g/dL 32.0-36.0 MCV 85.5 fL 80.0-97.0 [place]% 8.0 % 0.0-12.0 MPV 9.4 fL 7.4-10.0 Sandra% 47.9 % 37.0-80.0 Plt 373 K/uL 150-400 RBC 4.75 M/uL 3.60-5.00 RDW 12.7 % 11.6-14.8 WBC 6.76 K/uL 5.00-10.00 Sandra 3.24 K/uL 2.00-6.90 [place] 0.5 K/uL 0.0-0.9 Baso 0.0 K/uL 0.0-0.2 Protime - 07/04/19 10:53 INR 1.1 1.0-4.0 Protime 12.3 Sec 9.9-12.8 Test-Serum - 07/12/19 08:38 Preg Test-S Negative Negative Magnesium - 08/08/19 20:10 Mg++ 1.9 mg/dL 1.6-2.6 Other Culture - 10/22/19 14:48 PRELIM CULTURE RESULTS Moderate Gram Negativ e 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 AMILCAR / ID to Follow MEDIA PLATED Setup at 14:56 on 10/22/2019 Sensi - 10/22/19 14:48 FINAL CULTURE RESULTS Escherichia coli (Isolate 1) Ampicillin/Sulbactam <=8/4 Ampicillin <=8 Ceftriaxone <=1 Ciprofloxacin <=1 Nitrofurantoin <=32 Gentamicin <=4 Levofloxacin <=2 Trimethoprim/ Sulfamethoxazole <=2/38 Tetracycline <=4 Amikacin <=16 Aztreonam <=4 Ceftazidime <=1 Ceftazidime/K Clavulanate <=0.25 Cefotaxime <=2 Cefotaxime/K Clavulanate <=0.5 Cefoxitin <=8 Cefazolin <=2 Cefepime <=2 Ertapenem <=0.5 Imipenem <=1 Meropenem <=1 Piperacillin/Tazobactam <=16 Tigecycline <=2 Tobramycin <=4 Valproic Acid - 10/24/19 10:10 Valproic Acid 37.6 ug/mL 55.0-105.0 Encounters ACCT No. Visit Date/Time Discharge Status Pt. Type Provider Facility Loc./Unit Complaint [id number] 05/22/2018 23:08:00 Document Registration [id number] 05/02/2019 14:09:00 Document Registration [id number] 01/28/2019 22:35:00 Document Registration [id number] 04/08/2019 08:00:00 23:59:59 CLS Preadmit OBEY CARVALHO, Keyla JUSTIN [facility] CATH PSVT [id number] 01/21/2019 17:31:00 23:59:59 CLS Outpatient CECY ROMERO [facility] RAD RT W[employer] [place] [id number] 05/22/2018 13:13:00 23:59:59 CLS Outpatient HIGINIO ENGEL MD [facility] RAD GALACTORRHEA [id number] 05/26/2016 17:33:00 017 18:23:00 DIS Emergency BRENDAN LEWIS [employer]GRAM PL[employer]NER [facility] ER CP [id number] 04/27/2016 13:19:00 016 23:59:59 CLS Outpatient CECY ROMERO [facility] RAD PALPATED NODULES, LT BR EAST [id number] 08/09/2018 17:21:00 Document Registration [id number] 04/21/2018 19:07:00 Document Registration [id number] 11/15/2019 10:00:00 11/15/2019 23:59 :00 DIS Outpatient Cheri Romero [id number] 10/24/2019 13:16:00 10/24/2019 23:59 :00 DIS Outpatient HIGINIO ENGEL [id number] 10/24/2019 10:32:00 10/24/2019 23:59 :00 DIS Outpatient HIGINIO ENGEL [id number] 10/22/2019 17:24:00 10/22/2019 23:59 :00 DIS Outpatient Cheri Romero [id number] 10/22/2019 10:52:00 10/22/2019 23:59 :00 DIS Outpatient Cheri Romero [id number] 09/24/2019 09:28:00 10/17/2019 13:45 :00 DIS Outpatient Evelio Byrne [id number] 09/21/2019 10:29:00 09/21/2019 23:59 :00 DIS Outpatient Evelio Byrne [id number] 09/20/2019 08:24:00 09/20/2019 23:59 :00 DIS Outpatient Jhoan Cheri [id number] 08/08/2019 19:31:00 08/08/2019 21:10 :00 DIS Outpatient Chavez [facility] [id number] 07/12/2019 00:00:00 07/12/2019 11:05 :00 DIS Outpatient Rigoberto Zabala [id number] 07/04/2019 10:23:00 07/04/2019 23:59 :00 DIS Outpatient Rigoberto Zabala [id number] 07/01/2019 15:49:00 07/01/2019 23:59 :00 DIS Outpatient HIGINIO ENGEL [id number] 06/11/2019 16:47:00 06/11/2019 23:59 :00 DIS Outpatient HIGINIO ENGEL [id number] 05/30/2019 12:55:00 05/30/2019 23:59 :00 DIS Outpatient Rigoberto Zabala [id number] 05/22/2019 10:23:00 05/22/2019 23:59 :00 DIS Outpatient HIGINIO ENGEL [id number] 05/22/2019 10:00:00 05/22/2019 23:59 :00 DIS Outpatient HIGINIO ENGEL [id number] 04/29/2019 00:00:00 04/29/2019 23:59 :00 DIS Outpatient Cheri Romero [id number] 04/23/2019 14:01:00 04/23/2019 23:59 :00 DIS Outpatient HIGINIO ENGEL [id number] 04/23/2019 00:00:00 04/23/2019 23:59 :00 DIS Outpatient HIGINIO ENGEL [id number] 04/15/2019 17:14:00 04/15/2019 23:59 :00 DIS Outpatient HIGINIO ENGEL [id number] 04/10/2019 08:55:00 04/10/2019 23:59: 00 DIS Outpatient HIGINIO ENGEL [id number] 01/29/2019 11:31:00 01/29/2019 23:59: 00 DIS Outpatient HIGINIO ENGEL [id number] 01/29/2019 10:00:00 01/29/2019 23:59: 00 DIS Outpatient HIGINIO ENGEL [id number] 01/28/2019 22:35:00 01/29/2019 01:25: 00 DIS Outpatient DAVID GONZALEZ [facility] [id number] 01/21/2019 14:40:00 01/21/2019 23:59: 00 DIS Outpatient Cheri Romero [id number] 01/14/2019 15:02:00 01/14/2019 23:59: 00 DIS Outpatient Cheri Romero [id number] 08/09/2018 17:21:00 08/09/2018 23:59: 00 DIS Outpatient HIGINIO ENGEL [id number] 05/18/2018 15:42:00 05/18/2018 23:59: 00 DIS Outpatient Cheri Romero [id number] 04/19/2018 15:33:00 04/19/2018 23:59: 00 DIS Outpatient HIGINIO ENGEL [id number] 02/13/2018 14:41:00 02/13/2018 23:59: 00 DIS Outpatient HIGINIO ENGEL [id number] 02/13/2018 00:00:00 02/13/2018 23:59: 00 DIS Outpatient HIGINIO ENGEL [id number] 04/08/2016 15:31:00 04/08/2016 23:59: 00 DIS Outpatient HIGINIO ENGEL [id number] 01/29/2019 01:06:01 Document Registration [id number] 09/03/2018 14:30:00 Document Registration [id number] 08/28/2018 10:30:00 Document Registration [id number] 08/09/2018 14:40:00 Document Registration [id number] 06/04/2018 14:30:00 Document Registration [id number] 05/18/2018 13:30:00 Document Registration [id number] 05/07/2018 13:40:00 Document Registration [id number] 04/19/2018 14:10:00 Document Registration [id number] 07/19/2017 14:10:00 Document Registration [id number] 06/12/2017 14:24:00 Document Registration [id number] 01/31/2017 14:30:00 Document Registration [id number] 11/21/2019 11:30:00 11/21/2019 23:59: 59 CLS Outpatient KENIA MATIAS LAC [facility] [id number] 04/24/2018 17:13:00 Document Registration [id number] 04/26/2019 08:12:00 Document Registration [id number] 04/25/2019 20:08:00 Document Registration
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
--- NOTE | 2019-12-07 19:17 | Diagnostic Imaging Report ---
INDICATION: Left foot pain. EXAMINATION: AP, oblique and lateral views of the left foot were obtained. FINDINGS: No fracture or acute bony abnormality is seen. Joint spaces are unremarkable. IMPRESSION: Negative left foot. Dictated by: Dictated on workstation # [id number]
--- NOTE | 2019-12-07 19:26 | ED Lower Extremity ---
General Chief Complaint: Lower Extremity Stated Complaint: L FOOT PAIN Nursing Triage Note: Has had an increase in activity and developed left foot pain. No trauma associated with the pain. Rates the pain a 10/10. States "I am unable to get up and walk on it." Pain directed at the top of the foot, does not radiate anywhere. No facial grimacing or gaurding noted. Nursing Sepsis Screen: No Definite Risk Source: patient Exam Limitations: no limitations History of Present Illness Date Seen by Provider: Dec 07, 2019 Time Seen by Provider: 18:58 Initial Comments This 29-year-old woman presents to the emergency room via EMS with complaint of foot pain. She came by EMS because she had no other way to get to the hospital. Patient is of the dorsum of the left foot. She denies any injury. She reports doing a lot of walking recently and some running. She states 10 out of 10 pain but has no outward expression of pain. She moves her foot freely without grimacing. She reports taking ibuprofen without benefit. She reports wearing tennis shoes and flip-flops most of the time. Allergies and Home Medications Allergies Coded Allergies: No Known Drug Allergies (Unverified , 05/26/16) Home Medications Cetirizine HCl 10 Mg Tablet, 10 MG PO DAILY, (Reported) Cyanocobalamin/Folic Acid 1 Each Tablet, 1 EACH PO DAILY, (Reported) Docusate Sodium 100 Mg Capsule, 100 MG PO BID, (Reported) Melatonin 3 Mg Tablet, 3 MG PO HS, (Reported) Omeprazole 20 Mg Capsule.dr, 20 MG PO DAILY, (Reported) Polyethylene Glycol 3350 17 Gm Powd.pack, 17 GM PO DAILY, (Reported) Patient Home Medication List Home Medication List Reviewed: Yes Review of Systems Constitutional: no symptoms reported EENTM: no symptoms reported Respiratory: no symptoms reported Cardiovascular: no symptoms reported Gastrointestinal: no symptoms reported Genitourinary: no symptoms reported : No Musculoskeletal: see HPI Skin: no symptoms reported Psychiatric/Neurological: No Symptoms Reported Past Lemjkpw-Volqgc-Wascjf Hx Patient Social History Recent Foreign Travel: No Contact w/Someone Who Travel: No Recent Infectious Disease Expo: No Recent Hopitalizations: No Physical Abuse: No Sexual Abuse: No Mistreated: No Fear: No Past Medical History Surgeries: Yes Orthopedic Respiratory: Yes Asthma Cardiac: Yes (SVT) Irregular Heartbeat Neurological: No : No 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 oz. 95.523964cc; 41.00 BMI Method:Stated General Appearance: WD/WN, no apparent distress HEENT: normal ENT inspection Cardiovascular: regular rate, rhythm, no edema Respiratory: lungs clear, normal breath sounds, no respiratory distress Knees: left knee non-tender, left knee normal inspection, left knee normal range of motion, left knee no evidence of injury Ankles: left ankle non-tender, left ankle normal inspection, left ankle normal range of motion, left ankle no evidence of injury Feet: left foot normal inspection, left foot normal range of motion, left foot no evidence of injury, left foot other (normal color, sensation, and pedal pulse) Neurologic/Psychiatric: 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 See discharge instructions. Diagnostic Imaging Diagonstic Imaging: Xray Plain Films/CT/US/NM/MRI: other (left foot) Comments Left foot x-ray viewed by me and report reviewed. See report below: NAME: BILL KAM REC#: [id number] PT STATUS: DEP ER : 1990 PHYSICIAN: JEOVANNY KEARNS MD ADMIT DATE: 12/07/19/ER Signed Date of Exam:12/07/19 FOOT, LEFT, 3 VIEWS INDICATION: Left foot pain. EXAMINATION: AP, oblique and lateral views of the left foot were obtained. FINDINGS: No fracture or acute bony abnormality is seen. Joint spaces are unremarkable. IMPRESSION: Negative left foot. Dictated by: Dictated on workstation # [id number] Dict: 12/07/191912 Trans: 12/07/192011 PJE [id number] Interpreted by: JENNIFER MONTEJO MD Electronically signed by: JENNIFER MONTEJO MD 12/07/192011 Departure Impression Primary Impression: Left foot pain Disposition: HOME, SELF-CARE Condition: Improved Departure-Patient Inst. Decision time for Depature: 19:24 Referrals: HIGINIO ENGEL MD (PCP/Family) Primary Care Physician Patient Instructions: NO INSTRUCTIONS GIVEN Add. Discharge Instructions: There was no evidence of any bony abnormalities on your x-rays. You may use ibuprofen up to 600 mg every 6 hours as needed for pain use this in combination with Tylenol (acetaminophen) up to 1000 mg every 6 hours as needed. Elevate and ice your foot in 20 minute intervals to help with pain as well. Use tennis shoes rather than flip-flops when you walk. Make sure that her tennis shoes are well fitted and well cushioned. Follow-up with your primary care provider next week if pain persists. Until then, avoid strenuous activity until pain improves. All discharge instructions reviewed with patient and/or family. Voiced understanding. JEOVANNY KEARNS MD Dec 07, 2019 19:26
[2019-12-07 19:33] VITALS: BP 128/102
== END 2019-12-07 19:33 | disposition home or self-care (01) ==
LOC: EDUNIT# 18:57 → ER 18:58
DX: M79.672 Pain in left foot (principal); K21.9 Gastro-esophageal reflux disease without esophagitis; J45.909 Unspecified asthma, uncomplicated; F31.9 Bipolar disorder, unspecified; F63.81 Intermittent explosive disorder; I47.1 Supraventricular tachycardia; F79 Unspecified intellectual disabilities; F60.9 Personality disorder, unspecified; Z79.899 Other long term (current) drug therapy
CPT/HCPCS: 73630

== ENCOUNTER 2019-12-22 19:14 | Emergency (ER) | payer MEDICARE, MEDICAID ==
[~2019-12-22] VITALS: Ht 171.7 cm; Wt 113.0 kg
--- OUTSIDE RECORDS SUMMARY | 2019-12-22 19:21 | XMS REPORT | Encounter Summary ---
Author Author [facility] Organization [facility] Address Unknown Phone Unavailable Care Team Providers Care Assistant Broker Name Role Phone PCP Unavailable Encounter Details Care Team Description Date Type Department Jessy Warren MD No Forwarding Address 09/02/2004 [facility] al Encounter [address] [place] [address] Social History Date Tobacco Use Types Packs/Day [...] TH/UL SUNQUEST Specimen Blood Performing Organization Address [facility] one Number [id number] [place] [phone] SUNQUEST * Creatinine (09/02/2004 8:21 AM CDT) Creatinine 0.4 (L) 0.5 - 1.5 MG/DL SUNQUEST Specimen Blood Performing Organization Address [facility] one Number [id number] [place] [phone] SUNQUEST * Complete Blood Count (09/02/2004 [...] TH/UL SUNQUEST Specimen Blood Performing Organization Address [facility] one Number [id number] [place] [phone] SUNQUEST * Alanine Aminotransferase (09/02/2004 8:21 AM CDT) Alanine 20 20 - 60 IU/L SUNQUEST Aminotransferas e Specimen Blood Performing Organization Address [facility] Ph one Number [id number] [place] [phone] SUNQUEST * Gamma Glutamyl Transferase (09/02/2004 8:21 AM CDT) Gamma Glutamyl 17 15 - 80 IU/L SUNQUEST Transferase Specimen Blood Performing Organization Address [facility] one Number [id number] [place] [phone] SUNQUEST * Thyroid Fannin (09/02/2004 8:21 AM CDT) Thyroid 2.39 0.35 - 5.50 UIU/ML SUNQUEST Stimulating Hormone Specimen Blood Performing Organization Address [facility] one Number [id number] [place] [phone] SUNQUEST * Glucose (09/02/2004 8:21 AM CDT) Glucose 79 65 - 100 MG/DL SUNQUEST Specimen Blood Performing Organization Address [facility] one Number [id number] [place] [phone] SUNQUEST * Lipid Profile Sg (09/02/2004 8:21 AM CDT) Cholesterol 157 <200 MG/DL SUNQUEST Triglycerides 68 <150 MG/DL SUNQUEST HDL Cholesterol 49 >41 MG/DL SUNQUEST Cholesterol/HDL 3.2 <4.5 SUNQUEST Ratio LDL Cholesterol 94 0 - 99 MG/DL SUNQUEST Specimen Performing Organization Address [facility] one Number [id number] [place] [phone] SUNQUEST * Urinalysis (09/02/2004 8:21 AM CDT) Appearance, YELLOW SUNQUEST Urine Specific 1.025 <1.030 SUNQUEST [place], UA PH Urine 6.0 5.0 - 8.0 SUNQUEST Hemoglobin NEGATIVE NEGATIVE SUNQUEST Urine Ketones Urine NEGATIVE NEGATIVE SUNQUEST Glucose Urine NEGATIVE NEGATIVE SUNQUEST Protein Urine NEGATIVE NEGATIVE SUNQUEST Qual Leukocyte POSITIVE (A) NEGATIVE SUNQUEST Esterase Urobilinogen NEGATIVE NEGATIVE SUNQUEST Urine Bilirubin Urine NEGATIVE NEGATIVE SUNQUEST Specimen Urine Performing Organization Address [facility] one Number [id number] [place], [place] [address] SUNQUEST * Drug Panel 7 (09/02/2004 8:21 AM CDT) Amphetamines NotDetec SUNQUEST Urine Barbiturates NotDetec SUNQUEST Urine Benzodiazepines NotDetec SUNQUEST Urine Cocaine Urine NotDetec SUNQUEST Opiates Urine NotDetec SUNQUEST Phencyclidine NotDetec SUNQUEST Urine Tetrahydrocanna NotDetec SUNQUEST binol Urine Tape N/A SUNQUEST Creatinine 186.4 MG/DL SUNQUEST Urine Random Specimen Urine Performing Organization Address [facility] Number [id number] [place], [place] [address] SUNQUEST * Urine Test (09/02/2004 8:21 AM CDT) UCG Urine POSITIVE (A) NEGATIVE SUNQUEST Specimen Urine Performing Organization [facility] Ph one Number [id number] [place], [place] [address] SUNQUEST * Urinalysis and Microscopic (09/02/2004 8:21 AM CDT) MICROSCOPIC DONE SUNQUEST Microscopic WBC 6-10 (A) <6 SUNQUEST Urine Mucus SMALL (A) NEGATIVE SUNQUEST Epithelial SMALL (A) NEGATIVE SUNQUEST Cells Specimen Urine Performing Organization Address [facility] Ph one Number [id number] [place], [place] [address] SUNQUEST documented in this encounter Visit Diagnoses Not on filedocumented in this encounter
--- OUTSIDE RECORDS SUMMARY | 2019-12-22 19:21 | XMS REPORT ---
Author Author [employer]. cell support operator Twist [facility] [employer]. [facility] Address [address] [address] Care Team Providers Care Fruit Sorter Name Role Phone HIGINIO MOBLEY Unavailable HEENA, [...] NEGRETE ANN Unavailable DORCAS NEGRETE ANN Unavailable ROBLEDO, DEBBIE Unavailable DORCAS NEGRETE Unavailable DORCAS NEGRETE Unavailable DORCAS NEGRETE ANN Unavailable DORCAS NEGRETE ANN Unavailable ROSE DAWNY Unavailable DORCAS NEGRETE Unavailable ROEYR GARCIA Unavailable Unavailable ROSE, DAWNY Unavailable THAIS CAROLEE Unavailable DORCAS NEGRETE ANN Unavailable MOBLEY, HIGINIO Unavailable Unavailable MOBLEYHIGINIO CORBIN Unavailable Unavailable MOBLEY, HIGINIO Unavailable Unavailable ROMERO, JOE Unavailable Unavailable ROMERO, JOE Unavailable Unavailable ROMERO, JOE Unavailable Unavailable ROMERO, CECY S [employer] LIEUTENANT Unavailable Unavailable JOSHUA, BRENDAN [employer] LIEUTENANT Unavailable Unavailable KWABENA CARVALHO, AUGIE Reynaga Unavailable Unavailable Itz Trish Unavailable Unavailable DORCAS NEGRETE ANN Unavailable BATTAGLER, DAVID Unavailable Unavailable JOSE, CORRINA Unavailable Unavailable JOSE, CORRINA Unavailable Unavailable ROMERO, CECY S [employer] LIEUTENANT Unavailable Unavailable ITZ CARVALHO, HIGINIO Torres Unavailable Unavailable Mobley, Higinio Unavailable Unavailable JOSHUA, BRENDAN [employer] LIEUTENANT Unavailable Unavailable DORCAS NEGRETE Unavailable SILVESTRE, CHANDROUTIE Unavailable Unavailable SILVESTRE, CHANDROUTIE Unavailable Unavailable SILVESTRE, CHANDROUTIE Unavailable Unavailable DORCAS NEGRETE Unavailable BROWN, QUINN Unavailable Unavailable PAONI, SAGRARIO Unavailable Unavailable PAONI, SAGRARIO Unavailable Unavailable ROBLEDO, DEBBIE Unavailable BROWN, QUINN Unavailable Unavailable BROWN, QUINN Unavailable Unavailable Unavailable Unavailable URMILA CARVALHO, JEOVANNY Hall Unavailable Unavailable MD Brian MOBLEY PCP HETER, RENNY Unavailable Unavailable HETER CONSUMER AFFAIRS DIRECTOR, RENNY Unavailable Unavailable HETER CONSUMER AFFAIRS DIRECTOR, RENNY Unavailable Unavailable Unavailable Unavailable Unavailable Unavailable Unavailable Unavailable Unavailable Unavailable Unavailable Unavailable Unavailable Unavailable Unavailable Unavailable Allergies Allergy Reported Allergen(s) Allergy Type Date of Reaction(s) Care Facility Classificati Onset Provider on Unclassified No Known Drug Allergies DA 05-26-2016 CECY LARKIN [facility] Via (1 source) [facility] ([id number]) Encounters Encounter Date Encounter Type Encounter Diagnosis Care Provider Facility Start: Patient encounter [facility] Di strict #1 12-13-2019 procedure of [facility] End: 12-13-2019 Start: Emergency department MD HIGINIO almendarez Via [facility] 12-07-2019 patient visit Work Phone: [place] [phone] Start[facility] 12-07-2019 patient visit [facility] End: 12-07-2019 Start: Patient encounter JEOVANNY KEARNS [facility] V ia [facility] 12-07-2019 procedure [facility] Start: Patient encounter [facility] 11-21-2019 procedure [facility] Start: Patient encounter [facility] Di strict #1 11-15-2019 procedure of [facility] End: 11-15-2019 Start: Patient encounter [facility] Di strict #1 10-22-2019 procedure of [facility] Start: Patient encounter [facility] 10-16-2019 procedure [facility] Start: Patient encounter [facility] 10-09-2019 procedure [facility] Start: Patient encounter [facility] Di strict #1 09-24-2019 procedure of [facility] End: 10-17-2019 Start: Patient encounter [facility] Di strict #1 09-21-2019 procedure of [facility] End: 09-21-2019 Start: Patient encounter [facility] Di strict #1 09-20-2019 procedure of [facility] End: 09-20-2019 Start: Patient encounter [facility] Di strict #1 08-08-2019 procedure of [facility] End: 08-08-2019 Start: OUTREACH [facility] CLEO LOCK OUTREACH [facility] 07-23-2019 PONY DENTAL PONY DENTAL Start: Patient encounter [facility] 07-17-2019 procedure [facility] Start: [facility] Borderline ASHLEY [facility] 07-17-2019 intellectual functioning Start: [facility] Intermittent DAWNY ROSE [facility] 07-17-2019 explosive disorder Start: Patient encounter Rigoberto Zabala [facility] #1 07-11-2019 procedure of [facility] End: 07-12-2019 Start: Patient encounter RIGOBERTO ZABALA [facility] #1 07-04-2019 procedure of [facility] End: 07-04-2019 Start: [facility] Borderline [facility]SHLEY [facility] 07-03-2019 intellectual functioning Start: Patient encounter [facility] Di strict #1 07-01-2019 procedure of [facility] End: 07-01-2019 Start: OUTREACH [facility] Disorder of teeth and ROYER MOIZO N OUTREACH [facility] 06-24-2019 PONY DENTAL [facility] structures, unspecified Start: Patient encounter [facility] 06-19-2019 procedure Center [facility] Start: [facility] 06-19-[facility] intellectual functioning Start: Patient encounter [facility] Di strict #1 06-11-2019 procedure of [facility] ([id number]) End: 06-11-2019 Start: [facility] Borderline ASHLEY [facility] 06-05-2019 intellectual functioning Start: [facility] Intermittent [facility] 06-04-2019 explosive disorder Start: [facility] HER[facility]STRE [facility] #1 05-30-2019 procedure of [facility] ([id number]) End: 05-30-2019 Start: Patient encounter [facility] strict #1 05-22-2019 procedure of [facility] ([id number]) End: 05-22-2019 Start: [facility] Intermittent DORCAS NEGRETE [facility] 05-21-2019 explosive disorder Start: Patient encounter [facility] 05-21-2019 procedure [facility] ([id number]) Start: [facility] Intermittent DORCAS NEGRETE [facility] 05-15-2019 explosive disorder Start: [facility] DAV WALK IN Acute upper CRYSTAL KELLIE KNAPP [facility] 05-07-2019 CARE respiratory CARE infection, unspecified Start: Patient encounter [facility] Di strict #1 04-28-2019 procedure of [facility] ([id number]) End: 04-29-2019 Start: Patient encounter [facility] ealt 04-24-2019 procedure [facility] ([id number]) Start: [facility] Borderline ASHLEY [facility] 04-24-2019 intellectual functioning Start: [facility] Intermittent DORCAS NEGRETE [facility] 04-23-2019 explosive disorder Start: Patient encounter [facility] Di strict #1 04-22-2019 procedure of [facility] ([id number]) End: 04-23-2019 Start: Patient encounter [facility] Di strict #1 04-15-2019 procedure of [facility] ([id number]) End: 04-15-2019 Start: [facility] Borderline ASHLEY [facility] 04-10-2019 intellectual functioning Start: Patient encounter [facility] Di strict #1 04-10-2019 procedure of [facility] ([id number]) End: 04-10-2019 Start: [facility] Ricardo NEGRETE [facility] 04-09-2019 explosive disorder Start: Patient encounter [facility] ealt 04-03-2019 procedure [facility] ([id number]) Start: [facility] Intermittent MYRON ROSE [facility] 04-03-2019 explosive disorder Start: [facility] Borderline ASHLEY [facility] 03-27-2019 intellectual functioning Start: [facility] Borderline [facility] 03-13-2019 intellectual functioning Start: OUTREACH [facility] Encounter for dental CLEO LOCK OUTREACH [facility] 03-13-2019 PONY DENTAL examination and PONY D ENTAL cleaning without abnormal findings Start: [facility] 03-06-2019 intellectual functioning Start: [facility] Intermittent DORCAS NEGRETE [facility] 03-05-2019 explosive disorder Start: Patient encounter [facility] 02-27-2019 procedure [facility] ([id number]) Start: [facility] 02-27-2019 intellectual functioning Start: [facility] Borderline ASHLEY HENRY [facility] 02-20-2019 intellectual functioning Start: Patient encounter [facility] 02-13-2019 procedure [facility] ([id number]) Start: [facility] Borderline ASHLEY HENRY [facility] 02-13-2019 intellectual functioning Start: [facility] Intermittent ASHLEY HERNY C [facility] 02-06-2019 explosive disorder Start: [facility] Unspecified mood ASHLEY MIDDLETO N [facility] 01-30-2019 [affective] disorder Start: Patient encounter [facility] Di strict #1 01-29-2019 procedure of [facility] ([id number]) End: 01-29-2019 Start: [facility] encounter [facility] 01-28-2019 procedure of [facility] ([id number]) End: 01-30-2019 Start: Patient encounter [facility] Di strict #1 01-28-2019 procedure of [facility] ([id number]) Start: Patient encounter [facility] 01-26-2019 procedure [facility] ([id number]) Start: [facility] WALK IN [facility], STEVE BALDERRAMA [facility] 01-26-2019 CARE unspecified CARE Start: Patient encounter [facility] 01-26-2019 procedure [facility] ([id number]) Start: Patient encounter CECY ROMERO [facility] Via [facility] 01-21-2019 procedure [facility] ([id number]) Start: Patient encounter JOE ROMERO [facility] Di strict #1 01-21-2019 procedure [facility] ([id number]) End: 01-22-2019 Start: Patient encounter CECY ZAVALA [facility] Via Ro 01-21-2019 procedure [facility] Start: [facility] Intermittent ASHLEY HENRY C [facility] 01-16-2019 explosive disorder Start: [facility] Intermittent DORCAS NEGRETE [facility] 01-15-2019 explosive disorder Start: Patient encounter [facility] Bhumi august #1 01-14-2019 procedure of [facility] ([id number]) End: 01-15-2019 Start: Patient encounter [facility] 01-04-2019 procedure [facility] ([id number]) Start: Patient encounter [facility] 01-04-2019 procedure [facility] ([id number]) Start: [facility] Intermittent [facility] 01-04-2019 explosive disorder Start: Telephone encounter [facility] 01-04-2019 Start: Telephone encounter [facility] 12-21-2018 Start: Patient encounter [facility] 12-19-2018 procedure [facility] ([id number]) Start: [facility] Intermittent ASHLEY Handley [facility] 12-19-2018 explosive disorder Start: [facility] Intermittent [facility] 12-18-2018 explosive disorder Start: Patient encounter [facility] 12-18-2018 procedure [facility] ([id number]) Start: Patient encounter [facility] 12-11-2018 procedure [facility] ([id number]) Start: [facility] Intermittent [facility] 12-11-2018 explosive disorder Start: Patient encounter [facility] 12-05-2018 procedure [facility] ([id number]) Start: [facility] Intermittent ASHLEY Handley [facility] 12-05-2018 explosive disorder Start: OUTREACH [facility] Disorder of teeth and ROYER RAJWINDER N OUTREACH [facility] 11-27-2018 PONY DENTAL [facility] structures, unspecified Start: Telephone encounter ASHLEY HENRY [facility] 11-27-2018 Start: Patient encounter [facility] 11-21-2018 procedure [facility] ([id number]) Start: [facility] Unspecified mood ASHLEY MIDDLETO N [facility] 11-21-2018 [affective] disorder Start: Patient encounter [facility] 11-20-2018 procedure [facility] ([id number]) Start: [facility] Intermittent ROCAMINAH [facility] 11-20-2018 explosive disorder Start: [facility] 11-07-2018 explosive disorder End: 11-07-2018 Start: Patient encounter [facility] 11-07-2018 procedure [facility] ([id number]) Start: [facility] Intermittent DORCAS NEGRETE [facility] 11-06-2018 explosive disorder End: 11-06-2018 Start: Patient encounter [facility] 11-06-2018 procedure [facility] ([id number]) Start: [facility] Intermittent ROCAMINAH HERNA[facility] 10-23-2018 explosive disorder End: 10-23-2018 Start: Patient encounter [facility] 10-23-2018 procedure [facility] ([id number]) Start: [facility] 10-03-2018 explosive disorder End: 10-03-2018 Start: Patient encounter [facility] 10-03-2018 procedure [facility] ([id number]) Start: [facility] Intermittent ROCAMINAH [facility] 09-25-2018 explosive disorder End: 09-25-2018 Start: Patient encounter [facility] 09-25-2018 procedure [facility] ([id number]) Start: Patient encounter [facility] Bhumi strict #1 09-03-2018 procedure [facility] ([id number]) End: 09-04-2018 Start: Patient encounter [facility] Di strict #1 08-28-2018 procedure of [facility] ([id number]) End: 08-29-2018 Start: [facility] Ricardo NEGRETE [facility] 08-14-2018 explosive disorder End: 08-14-2018 Start: Patient encounter [facility] 08-14-2018 procedure [facility] ([id number]) Start: Patient encounter [facility] Di strict #1 08-09-2018 procedure of [facility] ([id number]) End: 08-10-2018 Start: Patient encounter [facility] Di strict #1 08-09-2018 procedure of [facility] ([id number]) End: 08-10-2018 Start: [facility] Intermittent [facility] 07-31-2018 explosive disorder End: 07-31-2018 Start: Patient encounter [facility] 07-31-2018 procedure [facility] ([id number]) Start: [facility] Disorder of teeth and DEBBIE BA RTON [facility] 07-25-2018 supporting structures, End: unspecified 07-25-2018 Start: [facility]2018 evaluation Other Phone: [facility] ([id number]) Start: [facility] Ricardo [facility] 07-17-2018 explosive disorder End: 07-17-2018 Start: Patient encounter [facility] 07-17-2018 procedure [facility] ([id number]) Start: [facility] Intermittent DORCAS NEGRETE [facility] 07-04-2018 explosive disorder End: 07-04-2018 Start: [facility] Intermittent MYRON ROSE [facility] 07-04-2018 explosive disorder End: 07-04-2018 Start: Patient encounter [facility] 07-04-2018 procedure [facility] ([id number]) Start: [facility] Intermittent DORCAS [facility] 06-19-2018 explosive disorder End: 06-19-2018 Start: Patient encounter [facility] 06-19-2018 procedure [facility] ([id number]) Start: Patient encounter [facility] Di strict #1 06-04-2018 procedure of [facility] ([id number]) End: 06-05-2018 Start: [facility] Intermittent DORCAS [facility] 05-29-2018 explosive disorder End: 05-29-2018 Start: Patient encounter [facility] 05-29-2018 procedure [facility] ([id number]) Start: Patient encounter HIGINIO jean ([id number]) 05-22-2018 procedure Start: Patient encounter HIGINIO MOBLEY MD [facility] 05-22-2018 procedure [facility] ([id number]) Start: Patient encounter [facility] Di strict #1 05-18-2018 procedure of [facility] ([id number]) End: 05-19-2018 Start: Patient encounter [facility] Di strict #1 05-18-2018 procedure of [facility] ([id number]) End: 05-19-2018 Start: Patient encounter [facility] Di strict #1 05-07-2018 procedure of [facility] ([id number]) End: 05-08-2018 Start: Telephone encounter Rciardo ERAZOSUKHWINDER KANGROSE [facility] 05-07-2018 explosive disorder End: 05-07-2018 Start: Patient encounter [facility] Di strict #1 04-19-2018 procedure of [facility] ([id number]) End: 04-20-2018 Start: Patient encounter [facility] Di strict #1 04-19-2018 procedure of [facility] ([id number]) End: 04-20-2018 Start: Patient encounter [facility] 04-16-2018 procedure [facility] ([id number]) Start: [facility] Ricardo [facility] 04-16-2018 explosive disorder End: 04-16-2018 Start: Patient encounter [facility] 04-10-2018 procedure [facility] ([id number]) [facility] Residual foreign body CAROLEE [facility]CDONALD [facility] 04-10-2018 CARE in soft tissue CARE End: 04-10-2018 Start: Patient encounter [facility] 2018 procedure [facility] ([id number]) Start: [facility] Intermittent [facility] 2018 explosive disorder End: 2018 Start: [facility] Encounter for dental ROYER PURDY N [facility] 04-03-2018 DENTAL examination and DENTAL cleaning without End: abnormal findings 04-03-2018 Start: [facility] Intermittent [facility] 02-28-2018 explosive disorder End: 02-28-2018 Start: [facility] Intermittent ROCAMINAH [facility] 02-27-2018 explosive disorder End: 02-27-2018 Start: Patient encounter [facility] Di strict #1 02-13-2018 procedure of [facility] ([id number]) End: 02-14-2018 Start: [facility] Intermittent ROCAMINAH [facility] 01-30-2018 explosive disorder End: 01-30-2018 Start: Patient encounter NA NA Not Availab le ([id number]) 12-06-2017 procedure Start: Patient encounter Trishlevi Yunens Not Availa ble ([id number]) 11-21-2017 procedure Start: Patient encounter [facility] 10-17-2017 procedure [facility] ([id number]) Start: Patient encounter [facility] 10-06-2017 procedure [facility] ([id number]) Start: Patient encounter [facility] 09-27-2017 procedure [facility] ([id number]) Start: Patient encounter [facility] 08-22-2017 procedure [facility] ([id number]) Start: Patient encounter [facility] 07-25-2017 procedure [facility] ([id number]) Start: Patient encounter [facility] Di strict #1 07-19-2017 procedure [facility] ([id number]) End: 07-20-2017 Start: Patient encounter [facility] 07-11-2017 procedure [facility] ([id number]) Start: Patient encounter [facility] 06-28-2017 procedure [facility] ([id number]) Start: Patient encounter [facility] 06-13-2017 procedure [facility] ([id number]) Start: Patient encounter [facility] strict #1 06-12-2017 procedure [facility] ([id number]) End: 06-13-2017 Start: Patient encounter [facility] 05-23-2017 procedure [facility] ([id number]) Start: Patient encounter [facility] strict #1 01-31-2017 procedure [facility] ([id number]) End: 02-01-2017 Start: Patient encounter BRENDAN LEWIS Not Availab le ([id number]) 05-26-2016 procedure Start: Emergency department BRENDAN LEWIS [facility] Via Ro 05-26-2016 patient visit [facility] ([id number]) End: 05-26-2016 Start: Patient encounter CECY ROMERO [facility] 04-27-2016 procedure [facility] ([id number]) Medical Equipment The data below is from unstructured sourcesNo Medical Equipment Information available Goals Date Patient Goal Desired Activity/St ate Immunizations The data below is from unstructured sources Immunization Event Date Not Given Reason Dose Number [employer] Lot Number Vaccine Information Statement (VIS) Deta il Interventions No Information Medications Current Medications Medication Drug Dates Sig Sig (Original) Class(es) (Normalized) Cyanocobalamin/Folic Cyanocobalamin/Folic Acid A ctive 1 ORAL Acid Daily (1 source) lisinopril 10 mg oral Angiotensi take 1 [...] source) 07-12-2019 End: 07-27-2019 SMZ/TMP DS TAB (SEPTRA Start: DS) (Bactrim DS) 01-29-2019 (1 source) End: 01-29-2019 SMZ/TMP DS TAB (SEPTRA Start: DS) (Bactrim DS) 01-29-2019 (1 source) End: 01-29-2019 Payers Date Payer Normalized Payer Policy ID MEDICARE MEDICARE [facility] INSURANCE [place]ID [place] [id number] Plan of Treatment Date Care Activity Detail Author Start: [facility]2019 Start[facility] 10[facility]09-2019 Start: [facility] 09-25-2019 Start[facility] 09-11-2019 Start[facility] 07-09-2019 Start[facility] F[facility]HC [facility] C [facility] 07-03-2019 Start: [facility] F[facility] 07-03-2019 Start: [facility]REACH [facility] 06-24-2019 FQ FQ FQHC Start: [facility] F[facility] 06[facility]12-2019 Start[facility] 06-05-2019 Start: [facility] F[facility] C [facility] 06-04-2019 Start: [facility] FQHC [facility] C [facility] 01-04-2019 Start: OUTREACH [facility] OUTREACH [facility] OUTREACH [facility] 11-27-2018 DENTAL DENTAL DENTAL Start: [facility] FQ[facility] C [facility] 11-20-2018 Start: [facility] F[facility] C [facility] 07-04-2018 Start[facility] FQ[facility] C [facility] 07-04-2018 Start[facility] F[facility] C [facility] 05-29-2018 Start: [facility] F[facility] C [facility] 04-16-2018 Start: [facility] F[facility] C [facility] 2018 Start[facility] DENTAL [facility] DENTA L [facility] DENTAL 04-03-2018 Start: [facility] FQHC [facility] C [facility] 02[facility]28-2018 [facility] 02-27-2018 Patient Education NO INSTRUCTIONS GIVEN Patrick [facility] ([id number]) Patient referral Patrick [facility] ([id number]) Problems Active Problems Problem Problem Date Last Documented Episodic/Chr Provider Classificati Recorded Date onic on Abdominal Epigastric pain Episodic BRENDAN JOSHUA pain (7 sources) Acute Acute bronchitis, unspecified ; 11-27-2019 Episodi c JOE bronchitis Translations: [ACUTE BRONCHITIS ] M URPHY (30 sources) Asthma Mild intermittent asthma, 12-10-2019 Chronic HIGINIO uncomplicated ; Translations: ITZ (12 [Unspecified asthma, uncomp licated] sources) Bacterial Streptococcus pneumoniae as the 11-27-2019 Episodi c HIGINIO infection; cause of diseases classified KULWINDER S unspecified elsewhere ; Translations: site [Streptococcus, group A, as the (26 sources) cause of diseases classifie d elsewhere] Cardiac Supraventricular tachycardia ; 11-27-2019 Chronic DAVID dysrhythmias Translations: [PAROXYSMAL BATTAGLER (20 sources) SUPRAVENTRICULAR TACHYCARDI A] Conduction Nonspecific intraventricular block 11-27-2019 Administrative Resources Associate alin CHANDROUTIE disorders SILVESTRE (20 sources) Contraceptiv Encounter for contraceptive 11-27-2019 Episodic HIGINIO e and management, unspecified ; MOBLEY procreative Translations: [Counseling a nd management instruction in natural fami ly (30 sources) planning to avoid ] Developmenta Mild intellectual disabilities ; 11-27-2019 Chron ic HIGINIO l disorders Translations: [Unspecified MOBLEY (27 sources) intellectual disabilities] Disorders of Hyperlipidemia, unspecified ; 11-27-2019 Chronic HIGINIO lipid Translations: [OTHER AND MOBLEY metabolism UNSPECIFIED HYPERLIPIDEMIA] (32 sources) Esophageal Esophageal reflux ; Translations: 12-10-2019 Chron ic HIGINIO disorders [Gastro-esophageal reflux disease S TEVENS (7 sources) without esophagitis] Essential Essential (primary) hypertension ; 11-27-2019 Administrative Resources Associate alin HIGINIO hypertension Translations: [MALIGNANT ESSENTIAL MOBLEY (34 sources) HYPERTENSION] Headache; Migraine, unspecified, not [...] ROC (23 sources) Translations: [Tinea corporis] MCCL EEERNST Other Phone: Nonmalignant Galactorrhea not associated with Episodic CECY ROMERO breast childbirth ; Translations: conditions [Unspecified lump in breast ] (9 sources) Other Other detention (current) drug 12-10-2019 Episodic JEOVANNY aftercare therapy URMILA (2 sources) Other Pain in left foot 12-10-2019 Episodic JEOVANNY connective BRUJEROMY tissue MD disease (4 sources) Other Foot pain Episodic MD SYLVESTER connective ITZ tissue Work Phone: disease [phone] (1 source) 77 Other lower Shortness of breath 11-27-2019 Episodic [...] sore M URPHY infections throat] (20 sources) Personality Personality disorder, unspecified 12-10-2019 Chron ic JEOVANNY disorders URMILA (2 sources) Residual High risk heterosexual behavior 11-27-2019 [...] body (FB) in soft tissue M79.5] [facility] er Phone: disease [phone] (7 sources) 0 Other Unspecified injury of [...] ROMERO c joint disorders (5 sources) Other [place] esophageal reflux Episodic RA BELINDA MOBLEY conditions [...] Procedure Procedure Detail Performing Cl inician Start: X-ray of left foot MD HIGINIO MOBLEY 12-07-2019 Work Phone: Start: HC visit, DORCAS NEGRETE 07-31-2018 estab pt Other Phone: Start: Psychotherapy DORCAS NEGRETE 07-31-2018 w/patient 30 Other Phone: minutes Start: Dental prophylaxis DEBBIE ROBLEDO 07-25-2018 adult Other Phone: Start: Topical fluoride DEBBIE ROBLEDO 07-25-2018 varnish Other Phone: Start: FQHC visit, DORCAS NEGRETE 07-17-2018 estab pt Other Phone: [phone] Start: Psychotherapy DORCAS NEGRETE 07-17-2018 w/patient 30 Other Phone: minutes Start: visit needs to DORCAS NEGRETE 07-04-2018 be added to the Other Phone: [phone] same day medical Start: FQHC visit, MH DORCAS NEGRETE 07-04-2018 estab pt Other Phone: Start: Psychotherapy DORCAS NEGRETE 07-04-2018 w/patient 30 Other Phone: [phone] minutes Start: FQHC visit, DORCAS NEGRETE 04-16-2018 estab pt Other Phone: Start: Psychotherapy DORCAS NEGRETE 04-16-2018 w/patient 30 Other Phone: [phone] minutes Start: [facility]QHC visit, [facility] CAROLEE PLASCENCIA 04-10-2018 pt Other Phone: Start: FQHC visit, guanakito SANCHES ROSE 2018 pt Other Phone: Start: Dental prophylaxis ROYER GARCIA 04-03-2018 adult Start: Int caries med hannah ROYER GARCIA 04-03-2018 per tooth Start: Topical fluoride ROYER GARCIA 04-03-2018 varnish Start: FQHC visit, guanakito CASTROSUKHWINDER ROSE 02-28-2018 pt Other Phone: Start: FQHC visit, DORCAS ENGRETE 02-27-2018 estab pt Other Phone: Start: Psychotherapy DORCAS NEGRETE 02-27-2018 w/patient 30 Other Phone: minutes Start: FQHC visit, DORCAS NEGRETE 01-30-2018 estab pt Other Phone: Start: Psychotherapy DORCAS NEGRETE 01-30-2018 w/patient 30 Other Phone: [phone] Start: FQHC visit, DORCAS NEGRETE 01-16-2018 estab pt Other Phone: Start: Psychotherapy DORCAS NEGRETE 01-16-2018 w/patient 30 Other Phone: minutes Results Test Name Value Interpreta Reference Facilit Date tion Range y Time laboratory on 2019-08-08 Albumin BCG dye 4.1 Invalid 3.6-5.1 Hospita [Mass/Vol] Interpreta g/dL l 020 tion Code Distric 16:10-[address] [place] [address] ([id number]) ALP [Catalytic 77 U/L Invalid 35-130 U/L Hospita activity/Vol] Interpreta l 020 tion Code Distric 16:10-0 t [address] [place] [address] ([id number]) ALT [Catalytic 28 U/L Invalid 6-45 U/L Hospita activity/Vol] Interpreta l 020 tion Code Distric 16:10-0 t [address] [place] [address] ([id number]) Anion gap 12 mmol/L Invalid 6-14 Hospita [Moles/Vol] Interpreta l 020 tion Code Distric 16:10-0 [address] [place] [address] ([id number]) AST [Catalytic 20 U/L Invalid 2-40 U/L Hospita activity/Vol] Interpreta l 020 tion Code Distric 16:10-0 [address] [place] [address] ([id number]) Basophils (Bld) 0.0 10*3/uL Invalid 0.0-0.2 Hospita 08-07 [#/Vol] Interpreta K/uL l 020 tion Code Distric 16:10-0 [address] [place] [address] ([id number]) Basophils/100 WBC 0.50 % Invalid 0.00-2.50 Hospita 08-07 -2 (Bld) Interpreta % l 020 tion Code Distric 16:10-0 [address] [place] [address] ([id number]) Bilirubin [Mass/Vol] 0.2 mg/dL Invalid 0.2-1.2 Hospita 2 Interpreta mg/dL l 020 tion Code Distric 16:10-0 [address] [place] [address] ([id number]) Calcium [Mass/Vol] 9.0 mg/dL Invalid 8.3-10.4 Hospita 04-0 2-2 Interpreta mg/dL l 020 tion Code Distric 16:10-0 [address] [place] [address] ([id number]) Chloride [Moles/Vol] 112 mmol/L Invalid 95-114 Hospita 0 4-02-2 Interpreta mmol/L l 020 tion Code Distric 16:10-0 [address] [place] [address] () Creatinine 0.72 mg/dL Invalid 0.50-1.50 Hospita 02-2 [Mass/Vol] Interpreta mg/dL l 020 tion Code Distric 16:10-0 [address] [place] [address] () Eosinophils (Bld) 0.1 10*3/uL Invalid 0.0-0.7 Hospita 04-2 [#/Vol] Interpreta K/uL l 020 tion Code Distric 16:10-0 [address] [place] [address] () Eosinophils/100 WBC 1.5 % Invalid 0.0-7.0 % Hospita -2 (Bld) Interpreta l 020 tion Code Distric 16:10-0 [address] [place] [address] () Erythrocyte 13.2 % Invalid 11.6-14.8 Hospita 08-07-2 distribution width Interpreta % l 020 (RBC) [Ratio] tion Code Distric 16:10-0 t [address] [place] [address] () GFR/1.73 sq 94 mL/min/{1.73_m2} Invalid >59 Hospita 0 402-2 M.predicted MDRD Interpreta mL/min/1.7 l 020 (S/P/Bld) [Vol tion Code 3m2 Distric 16:10-0 rate/Area] [address] [place] [address] () Globulin (S) 2.6 g/dL Invalid 2.3-3.5 Hospita 04-02-2 [Mass/Vol] Interpreta g/dL l 020 tion Code Distric 16:10-0 [address] [place] [address] () Glucose [Mass/Vol] 123 mg/dL High 70-110 Hospita 04-0 2-2 mg/dL l 020 Distric 16:10-0 [address] [place] [address] () HCO3 (P) [Moles/Vol] 23 Invalid 22-33 Hospita Interpreta mEq/L l 020 tion Code Distric 16:10-0 [address] [place] [address] ([id number]) Hematocrit (Bld) 39.5 % Invalid 36.0-46.0 Hospita [Volume fraction] Interpreta % l 020 tion Code Distric 16:10-0 [address] [place] [address] () Hemoglobin (Bld) 13.8 g/dL Invalid 13.0-15.0 Hospita [Mass/Vol] Interpreta g/dL l 020 tion Code Distric 16:10-0 [address] [place] [address] () Lymphocytes (Bld) 3.97 10*3/uL High 0.60-3.40 Hospita [#/Vol] K/uL l 020 Distric 16:10-0 [address] [place] [address] () Lymphocytes/100 WBC 45.0 % Invalid 10.0-50.0 Hospita 06-09 (Bld) Interpreta % l 020 tion Code Distric 16:10-0 [address] [place] [address] () Magnesium [Mass/Vol] 1.9 mg/dL Invalid 1.6-2.6 Hospita Interpreta mg/dL l 020 tion Code Distric 16:10-0 [address] [place] [address] () MCH (RBC) [Entitic 29.8 pg Invalid 27.0-31.0 Hospita 04-0 2-2 mass] Interpreta pg l 020 tion Code Distric 16:10-0 [address] [place] [address] ([id number]) MCHC (RBC) 34.9 g/dL Invalid 32.0-36.0 Hospita 08-07-2 [Mass/Vol] Interpreta g/dL l 020 tion Code Distric 16:10-0 [address] [place] [address] () MCV (RBC) [Entitic 85.3 fL Invalid 80.0-97.0 Hospita 04-0 2-2 vol] Interpreta fL l 020 tion Code Distric 16:10-0 t #[address] of [address] [facility] ([id number]) Monocytes (Bld) 0.9 10*3/uL Invalid 0.0-0.9 Hospita 08-072 [#/Vol] Interpreta K/uL l 020 tion Code Distric 16:10-0 [address] [place] [address] ([id number]) Monocytes/100 WBC 9.8 % Invalid 0.0-12.0 % Hospita 04-0 2-2 (Bld) Interpreta l 020 tion Code Distric 16:10-0 [address] [place] [address] ([id number]) Neutrophils (Bld) 3.82 10*3/uL Invalid 2.00-6.90 Hospita [#/Vol] Interpreta K/uL l 020 tion Code Distric 16:10-0 t #[facility] of [address] [facility] ([id number]) Neutrophils/100 WBC 43.2 % Invalid 37.0-80.0 Hospita 06-09 (Bld) Interpreta % l 020 tion Code Distric 16:10-0 [address] [place] [address] ([id number]) Osmolality Calc 295 Invalid 280-295 Hospita 2 [Osmolality] Interpreta l 020 tion Code Distric 16:10-0 [address] [place] [address] ([id number]) Platelet mean volume 9.6 fL Invalid 7.4-10.0 Hospita 2 (Bld) [Entitic vol] Interpreta fL l 020 tion Code Distric 16:10-0 [address] [place] [address] ([id number]) Platelets (Bld) 357 10*3/uL Invalid 150-400 Hospita 08-07 [#/Vol] Interpreta K/uL l 020 tion Code Distric 16:10-0 [address] [place] [address] ([id number]) Potassium 4.2 mmol/L Invalid 3.5-5.3 Hospita 08-07-2 [Moles/Vol] Interpreta mmol/L l 020 tion Code Distric 16:10-0 [address] [place] [address] ([id number]) Protein [Mass/Vol] 6.7 g/dL Invalid 6.0-8.3 Hospita 04-0 2-2 Interpreta g/dL l 020 tion Code Distric 16:10-0 t #[address] of [address] [facility] ([id number]) RBC (Bld) [#/Vol] 4.63 10*6/uL Invalid 3.60-5.00 Hospita Interpreta M/uL l 020 tion Code Distric 16:10-0 t #[facility] of [address] [facility] ([id number]) Sodium [Moles/Vol] 143 mmol/L Invalid 134-148 Hospita 06-09 Interpreta mmol/L l 020 tion Code Distric 16:10-0 [address] [place] [address] ([id number]) Urea nitrogen 10 mg/dL Invalid 5-25 mg/dL Hospita [Mass/Vol] Interpreta l 020 tion Code Distric 16:10-0 t #[address] of [address] [facility] ([id number]) WBC (Bld) [#/Vol] 8.82 10*3/uL Invalid 5.00-10.00 Hospita 0 Interpreta K/uL l 020 tion Code Distric 16:10-0 [address] [place] [address] ([id number]) laboratory on 2019-07-12 Beta HCG ( Negative Invalid Negative Hospita 10-07 test) Ql Interpreta l 020 tion Code Distric 03:38-[address] [place] [address] ([id number]) not yet categorized on 2019-07-04 Electrocardiograms Complete Invalid Hospita recorded Interpreta l 020 tion Code Distric 05:53-0 [address] [place] [address] ([id number]) laboratory on 2019-07-04 Anion gap 14 mmol/L Invalid 6-14 Hospita [Moles/Vol] Interpreta l 020 tion Code Distric 05:53-[address] [place] [address] ([id number]) Basophils (Bld) 0.0 10*3/uL Invalid 0.0-0.2 Hospita 07-04 [#/Vol] Interpreta K/uL l 020 tion Code Distric 05:53-[address] [place] [address] ([id number]) Basophils/100 WBC 0.20 % Invalid 0.00-2.50 Hospita 07-04 (Bld) Interpreta % l 020 tion Code Distric 05:53-0 t #[address] of [address] [facility] () Calcium [Mass/Vol] 9.3 mg/dL Invalid 8.3-10.4 Hospita - 7-2 Interpreta mg/dL l 020 tion Code Distric 05:53-[address] [place] [address] () Chloride [Moles/Vol] 109 mmol/L Invalid 95-114 Hospita 0 07-04-2 Interpreta mmol/L l 020 tion Code Distric 05:53-0 [address] [place] [address] () Creatinine 0.72 mg/dL Invalid 0.50-1.50 Hospita 2 [Mass/Vol] Interpreta mg/dL l 020 tion Code Distric 05:53-[address] [place] [address] () Eosinophils (Bld) 0.1 10*3/uL Invalid 0.0-0.7 Hospita [#/Vol] Interpreta K/uL l 020 tion Code Distric 05:53-[address] [place] [address] () Eosinophils/100 WBC 1.4 % Invalid 0.0-7.0 % Hospita (Bld) Interpreta l 020 tion Code Distric 05:53-[address] [place] [address] () Erythrocyte 12.8 % Invalid 11.6-14.8 Hospita distribution width Interpreta % l 020 (RBC) [Ratio] tion Code Distric 05:53-[address] [place] [address] () GFR/1.73 sq 94 mL/min/{1.73_m2} Invalid >59 Hospita 0 27-2 M.predicted MDRD Interpreta mL/min/1.7 l 020 (S/P/Bld) [Vol tion Code 3m2 Distric 05:53-0 rate/Area] [address] [place] [address] () Glucose [Mass/Vol] 95 mg/dL Invalid 70-110 Hospita 02-2 7-2 Interpreta mg/dL l 020 tion Code Distric 05:53-[address] [place] [address] () HCO3 (P) [Moles/Vol] 22 Invalid 22-33 Hospita Interpreta mEq/L l 020 tion Code Distric 05:53-0 t #[facility] of [address] [facility] () Hematocrit (Bld) 40.0 % Invalid 36.0-46.0 Hospita [Volume fraction] Interpreta % l 020 tion Code Distric 05:53-0 t #[facility] of [address] [facility] () Hemoglobin (Bld) 14.0 g/dL Invalid 13.0-15.0 Hospita [Mass/Vol] Interpreta g/dL l 020 tion Code Distric 05:53-0 t #[facility] of [address] [facility] () INR Coag (Platelet 1.1 Invalid 1.0-4.0 [facility] or Interpreta l 020 blood) [Relative tion Code Distric 05:53-0 time] t #[facility] of [address] [facility] () Lymphocytes (Bld) 3.77 10*3/uL High 0.60-3.40 [facility] [#/Vol] K/uL l 020 Distric 05:53-0 t #[facility] of [address] [facility] () Lymphocytes/100 WBC 44.9 % Invalid 10.0-50.0 [facility] (Bld) Interpre[facility] % l 020 tion Code Distric 05:53-0 t #[facility] of [address] [facility] () MCH (RBC) [Entitic 29.5 pg Invalid 27.0-31.0 [facility] mass] Interpreta pg l 020 tion Code Distric 05:53-0 t #[facility] of [address] [facility] ([id number]) MCHC (RBC) 35.0 g/dL Invalid 32.0-36.0 Hospita [Mass/Vol] Interpreta g/dL l 020 tion Code Distric 05:53-0 t #[facility] of [address] [facility] () MCV (RBC) [Entitic 84.4 fL Invalid 80.0-97.0 Hospita 06-09 7-2 vol] Interpreta fL l 020 tion Code Distric 05:53-0 t #[facility] of [address] [facility] () Monocytes (Bld) 0.6 10*3/uL Invalid 0.0-0.9 Hospita 07-04 [#/Vol] Interpreta K/uL l 020 tion Code Distric 05:53-0 t #[address] of [address] [facility] ([id number]) Monocytes/100 WBC 7.0 % Invalid 0.0-12.0 % Hospita 06-09 7-2 (Bld) Interpreta l 020 tion Code Distric 05:53-0 t #[address] of [address] [facility] ([id number]) Neutrophils (Bld) 3.90 10*3/uL Invalid 2.00-6.90 Hospita [#/Vol] Interpreta K/uL l 020 tion Code Distric 05:53-0 t #1 of [address] [facility] () Neutrophils/100 WBC 46.5 % Invalid 37.0-80.0 Hospita (Bld) Interpreta % l 020 tion Code Distric 05:53-0 t #[address] of [address] [facility] ([id number]) Osmolality Calc 290 Invalid 280-295 Hospita [Osmolality] Interpreta l 020 tion Code Distric 05:53-0 t #[address] of [address] [facility] ([id number]) Platelet mean volume 9.2 fL Invalid 7.4-10.0 Hospita (Bld) [Entitic vol] Interpreta fL l 020 tion Code Distric 05:53-0 t #[address] of [address] [facility] ([id number]) Platelets (Bld) 350 10*3/uL Invalid 150-400 Hospita 07-04 [#/Vol] Interpreta K/uL l 020 tion Code Distric 05:53-0 t #[address] of [address] [facility] ([id number]) Potassium 4.2 mmol/L Invalid 3.5-5.3 Hospita [Moles/Vol] Interpreta mmol/L l 020 tion Code Distric 05:53-0 t #[address] of [address] [facility] ([id number]) PT Coag (PPP) [Time] 12.3 s Invalid 9.9-12.8 Hospita Interpreta Sec l 020 tion Code Distric 05:53-0 t #[address] of [address] [facility] ([id number]) RBC (Bld) [#/Vol] 4.74 10*6/uL Invalid 3.60-5.00 Hospita Interpreta M/uL l 020 tion Code Distric 05:53-0 t #1 of [address] [facility] () Sodium [Moles/Vol] 141 mmol/L Invalid 134-148 Hospita Interpreta mmol/L l 020 tion Code Distric 05:53-0 t #[facility] of [address] [facility] () Urea nitrogen 9 mg/dL Invalid 5-25 mg/dL Hospita [Mass/Vol] Interpreta l 020 tion Code Distric 05:53-0 t #1 of [address] [facility] () WBC (Bld) [#/Vol] 8.40 10*3/uL Invalid 5.00-10.00 Hospita 0 Interpreta K/uL l 020 tion Code Distric 05:53-0 t #[facility] of [address] [facility] () laboratory on 2019-05-22 Basophils (Bld) 0.0 10*3/uL Invalid 0.0-0.2 Hospita 05-22 [#/Vol] Interpreta K/uL l 020 tion Code Distric 04:40-0 [address] [place] [address] () Basophils/100 WBC 0.30 % Invalid 0.00-2.50 Hospita 05-22 (Bld) Interpreta % l 020 tion Code Distric 04:40-0 [address] [place] [address] () Eosinophils (Bld) 0.1 10*3/uL Invalid 0.0-0.7 Hospita [#/Vol] Interpreta K/uL l 020 tion Code Distric 04:40-0 t #1 of [address] [facility] () Eosinophils/100 WBC 1.6 % Invalid 0.0-7.0 % Hospita (Bld) Interpreta l 020 tion Code Distric 04:40-0 [address] [place] [address] () Erythrocyte 12.7 % Invalid 11.6-14.8 Hospita distribution width Interpreta % l 020 (RBC) [Ratio] tion Code Distric 04:40-0 t #[address] of [address] [facility] ([id number]) Hematocrit (Bld) 40.6 % Invalid 36.0-46.0 Hospita [Volume fraction] Interpreta % l 020 tion Code Distric 04:40-0 t #[facility] of [address] [facility] ([id number]) Hemoglobin (Bld) 14.2 g/dL Invalid 13.0-15.0 Hospita [Mass/Vol] Interpreta g/dL l 020 tion Code Distric 04:40-0 t #[facility] of [address] [facility] ([id number]) Lymphocytes (Bld) 2.85 10*3/uL Invalid 0.60-3.40 Hospita [#/Vol] Interpreta K/uL l 020 tion Code Distric 04:40-0 t #[facility] of [address] [facility] () Lymphocytes/100 WBC 42.2 % Invalid 10.0-50.0 Hospita (Bld) Interpreta % l 020 tion Code Distric 04:40-0 t #[facility] of [address] [facility] ([id number]) MCH (RBC) [Entitic 29.9 pg Invalid 27.0-31.0 Hospita 05-08 5-2 mass] Interpreta pg l 020 tion Code Distric 04:40-0 [address] [place] [address] ([id number]) MCHC (RBC) 35.0 g/dL Invalid 32.0-36.0 Hospita [Mass/Vol] Interpreta g/dL l 020 tion Code Distric 04:40-0 [address] [place] [address] ([id number]) MCV (RBC) [Entitic 85.5 fL Invalid 80.0-97.0 Hospita -1 5-2 vol] Interpreta fL l 020 tion Code Distric 04:40-0 [address] [place] [address] ([id number]) Monocytes (Bld) 0.5 10*3/uL Invalid 0.0-0.9 Hospita 05-22 [#/Vol] Interpreta K/uL l 020 tion Code Distric 04:40-0 t #[facility] of [address] [facility] () Monocytes/100 WBC 8.0 % Invalid 0.0-12.0 % Hospita - 5-2 (Bld) Interpreta l 020 tion Code Distric 04:40-0 t #1 of [address] [facility] ([id number]) Neutrophils (Bld) 3.24 10*3/uL Invalid 2.00-6.90 Hospita [#/Vol] Interpreta K/uL l 020 tion Code Distric 04:40-0 t #1 of 500 [facility] ([id number]) Neutrophils/100 WBC 47.9 % Invalid 37.0-80.0 Hospita (Bld) Interpreta % l 020 tion Code Distric 04:40-0 t #1 of 500 [facility] ([id number]) Platelet mean volume 9.4 fL Invalid 7.4-10.0 Hospita (Bld) [Entitic vol] Interpreta fL l 020 tion Code Distric 04:40-0 t #1 of 500 [facility] ([id number]) Platelets (Bld) 373 10*3/uL Invalid 150-400 Hospita 05-22 [#/Vol] Interpreta K/uL l 020 tion Code Distric 04:40-0 t #1 of 500 [facility] ([id number]) RBC (Bld) [#/Vol] 4.75 10*6/uL Invalid 3.60-5.00 Hospita Interpreta M/uL l 020 tion Code Distric 04:40-0 t #1 of 500 [facility] ([id number]) WBC (Bld) [#/Vol] 6.76 10*3/uL Invalid 5.00-10.00 Hospita 0 - Interpreta K/uL l 020 tion Code Distric 04:40-0 t #1 of 500 [facility] ([id number]) laboratory on 2019-05-02 HPV Negative Invalid Negative [facility] 16+18+31+33+35+39+45 Interpreta ([id number]) 019 +51+52+56+58+59+66+6 tion Code 08:18-0 8 DNA Probe+sig amp 500 Ql (Cvx) not yet categorized on 2019-04-30 QC reviewed by: Comment Invalid [facility]preta ([id number]) 019 tion Code 10:19-0 500 laboratory on 2019-04-30 Chemist Intern Cyto Comment Invalid [facility] stain Nom (Cvx/Vag) Interpreta ([id number]) 019 [ID] tion Code 10:19-0 500 Cytology report Cyto Comment Invalid [facility] 04-30 stain Doc (Cvx/Vag) Interpreta ([id number]) 019 tion Code 10:19-0 500 Cytology report Cyto Comment Invalid [facility] 04-30 stain.thin prep Doc [facility] ([id number]) 019 (Cvx/Vag) tion Code 10:19-0 500 Microscopic . Invalid [facility] observation Other [facility] ([id number]) 019 stain Nom (Unsp tion Code 10:19-0 spec) 500 Statement of Comment Invalid [facility] adequacy Cyto stain [facility]pre[facility] ([id number]) 019 (Cvx/Vag) [Interp] tion Code 10:19-0 500 laboratory on 2019-04-26 Reagin Ab RPR Ql (S) Non Reactive Invalid Non [facility] Reactive ([id number]) 019 tion Code 02:48-0 500 laboratory on 2019-04-25 C. trachomatis rRNA Negative Invalid Negative [facility] CHERIE+probe Ql (Unsp Interpreta (16442) 019 spec) tion Code 14:24-0 500 HCV Ab Signal/Cutoff <0.1 Invalid 0.0-0.9 [facility] IA [Rel units/Vol] Interpreta s/co ratio (50772) 019 tion Code 21:50-0 500 N. gonorrhoeae rRNA Negative Invalid Negative [facility] CHERIE+probe Ql (Unsp [facility] (60246) 019 spec) tion Code 14:24-0 500 not yet categorized on 2019-04-23 CHLAMYDIA Negative NEGATIVE Hospita TRACHOMATIS, CHERIE l 019 Distric 08:30-0 t #1 of 500 [facility] ([id number]) HEP C VIRUS AB <0.1 Invalid 0.0-0.9 Hospita Interpreta S/CO RATIO l 019 tion Code Distric 08:30-0 t #1 of 500 [facility] ([id number]) NEISSERIA Negative NEGATIVE Hospita 12-17-2 GONORRHOEAE, CHERIE l 019 Distric 08:30-0 t #1 of 500 [facility] ([id number]) laboratory on 2019-04-23 Reagin Ab RPR Ql (S) NON REACTIVE NON Hospita -2 REACTIVE l 019 Distric 08:30-0 t [address] [place] [address] ([id number]) not yet categorized on 2019-01-29 CULTURE SOURCE random clean catch Hospita l 019 Distric 00:59-0 t [address] [place] [address] ([id number]) FINAL CULTURE 20,000-50,000 Gram Positive Mixed [place] Invalid Hospita RESULTS Probable Skin Contaminant Interpreta l 019 No Further Workup done tion Code Distric 00:59-0 t [address] [place] [address] ([id number]) MEDIA PLATED Setup at 00:04 on 01/29/2019 Hospita l 019 Distric 00:59-0 t [address] [place] [address] ([id number]) PRELIM CULTURE 10,000-20,000 Gram Positive Mixed [place] Hosp jaylen RESULTS Probable Skin Contaminant l 01 9 Distric 00:59-0 t [address] [place] [address] ([id number]) Urine Volume Urine Volume Sufficient (10mL) Hospita l 019 Distric 00:45-0 t [address] [place] [address] ([id number]) Culture to follow Abnormal Hospita l 019 Distric 00:45-0 t [address] [place] [address] ([id number]) laboratory on 2019-01-29 Amphetamines Ql (U) Negative Invalid NEGATIVE Hospita Interpreta l 019 tion Code Distric 00:45-0 t [address] [place] [address] ([id number]) Bacteria LM Ql 1+ Abnormal Hospita (Urine sed) l 019 Distric 00:45-0 t [address] [place] [address] ([id number]) Barbiturates Screen Negative Invalid NEGATIVE Hospita -2 Ql (U) Interpreta l 019 tion Code Distric 00:45-0 t [address] [place] [address] ([id number]) Benzodiazepine Negative Invalid NEGATIVE Hospita 2 metabolites Screen Interpreta l 019 Ql (U) tion Code Distric 00:45-0 t [address] [place] [address] ([id number]) Bilirubin Confirm Ql N/A Abnormal Negative Hospita 24-2 (U) l 019 Distric 00:45-0 [address] [place] [address] ([id number]) Bilirubin Ql (U) Negative Negative Hospita 24-2 l 019 Distric 00:45-0 [address] [place] [address] ([id number]) Carboxy Negative Invalid NEGATIVE Hospita 2 tetrahydrocannabinol Interpreta l 019 Ql (U) tion Code Distric 00:45-0 t [address] [place] [address] ([id number]) Clarity (U) Slightly Cloudy Abnormal Clear Hospita 01-29 l 019 Distric 00:45-0 [address] [place] [address] ([id number]) Cocaine Ql (U) Negative Invalid NEGATIVE Hospita 2 Interpreta l 019 tion Code Distric 00:45-0 [address] [place] [address] ([id number]) Color (U) Yellow Colorless- Hospita 01-29-2 Lt. Yellow l 019 Distric 00:45-0 [address] [place] [address] ([id number]) Epithelial 5-10/HPF Abnormal Hospita 2 cells.squamous l 019 LM.HPF (Urine sed) Distric 00:45-0 [#/Area] t [address] [place] [address] ([id number]) Glucose Test strip Negative Negative Hospita (U) [Mass/Vol] l 019 Distric 00:45-0 [address] [place] [address] ([id number]) Hemoglobin Ql (U) Trace-lysed Abnormal Negative Hospita l 019 Distric 00:45-0 [address] [place] [address] ([id number]) Ketones (U) Negative Negative Hospita 24-2 [Mass/Vol] l 019 Distric 00:45-0 [address] [place] [address] ([id number]) Leukocyte esterase 1+ Abnormal Negative Hospita -2 4-2 Test strip Ql (U) l 019 Distric 00:45-0 [address] [place] [address] (05778) Methylenedioxymetham Negative Invalid NEGATIVE Hospita 24-2 phetamine Screen Ql Interpreta l 019 (U) tion Code Distric 00:45-0 [address] [place] [address] ([id number]) Mucus Ql (Urine sed) 1+ Abnormal Hospita 01-29 l 019 Distric 00:45-0 [address] [place] [address] ([id number]) Nitrite Ql (U) Negative Negative Hospita l 019 Distric 00:45-0 [address] [place] [address] ([id number]) Opiates Screen Ql Negative Invalid NEGATIVE Hospita 01-29 (U) Interpreta l 019 tion Code Distric 00:45-0 [address] [place] [address] ([id number]) oxyCODONE Ql (U) Negative Invalid NEGATIVE Hospita Interpreta l 019 tion Code Distric 00:45-0 [address] [place] [address] ([id number]) pH (U) 5.5 [pH] 5-8.5 Hospita l 019 Distric 00:45-0 [address] [place] [address] (57873) Phencyclidine Ql (U) Negative Invalid NEGATIVE Hospita Interpreta l 019 tion Code Distric 00:45-0 [address] [place] [address] ([id number]) Propoxyphene Ql (U) Negative Invalid NEGATIVE Hospita Interpreta l 019 tion Code Distric 00:45-0 [address] [place] [address] ([id number]) [facility] (U) [facility] [Mass/Vol] l 019 Distric 00:45-0 [address] [place] [address] ([id number]) RBC LM.HPF (Urine 0-2/HPF Abnormal Hospita sed) [#/Area] l 019 Distric 00:45-0 [address] [place] [address] ([id number]) Specific gravity (U) 1.025 [facility]000[facility].03 [facility] [[facility] density] 0 l 019 Distric 00:45-0 [address] [place] [address] ([id number]) Tricyclic Negative Invalid NEGATIVE Hospita antidepressants Ql Interpreta l 019 (U) tion Code Distric 00:45-0 [address] [place] [address] (16929) Urobilinogen Qn (U) 0.2 0.2-1.0 Hospita l 019 Distric 00:45-0 [address] [place] [address] ([id number]) WBC LM.HPF (Urine 10-20/HPF Abnormal Hospita sed) [#/Area] l 019 Distric 00:45-0 [address] [place] [address] (31091) WBC LM.HPF (Urine 20-40/HPF Abnormal Hospita sed) [#/Area] l 019 Distric 00:45-0 [address] [place] [address] ([id number]) Yeast.budding Ql No Yeast present Hospita (Urine sed) l 019 Distric 00:45-0 [address] [place] [address] () not yet categorized on 2019-01-28 Electrocardiograms Complete Hospita recorded l 019 Distric 23:40-0 [address] [place] [address] () laboratory on 2019-01-28 Albumin BCG dye 4.5 Invalid 3.6-5.1 Hospita [Mass/Vol] Interpreta g/dL l 019 tion Code Distric 23:50-0 [address] [place] [address] ([id number]) ALP [Catalytic 79 U/L Invalid 35-130 U/L Hospita activity/Vol] Interpreta l 019 tion Code Distric 23:50-0 [address] [place] [address] ([id number]) ALT [Catalytic 26 U/L Invalid 6-45 U/L Hospita activity/Vol] Interpreta l 019 tion Code Distric 23:50-0 [address] [place] [address] (19703) Anion gap 17 mmol/L High 6-14 Hospita [Moles/Vol] l 019 Distric 23:50-0 [address] [place] [address] ([id number]) AST [Catalytic 21 U/L Invalid 2-40 U/L Hospita activity/Vol] Interpreta l 019 tion Code Distric 23:50-0 [address] [place] [address] (35045) Basophils (Bld) 0.0 10*3/uL Invalid 0.0-0.2 Hospita 01-28 [#/Vol] Interpreta K/uL l 019 tion Code Distric 23:50-0 [address] [place] [address] ([id number]) Basophils/100 WBC 0.20 % Invalid 0.00-2.50 Hospita 01-28 -2 (Bld) Interpreta % l 019 tion Code Distric 23:50-0 [address] [place] [address] ([id number]) Bilirubin [Mass/Vol] 0.3 mg/dL Invalid 0.2-1.2 Hospita -2 Interpreta mg/dL l 019 tion Code Distric 23:50-0 [address] [place] [address] ([id number]) Calcium [Mass/Vol] 9.3 mg/dL Invalid 8.3-10.4 Hospita 09-2 3-2 Interpreta mg/dL l 019 tion Code Distric 23:50-0 [address] [place] [address] ([id number]) Chloride [Moles/Vol] 111 mmol/L Invalid 95-114 Hospita 0 01-28-2 Interpreta mmol/L l 019 tion Code Distric 23:50-0 [address] [place] [address] (20583) Creatinine 0.74 mg/dL Invalid 0.50-1.50 Hospita 01-28-2 [Mass/Vol] Interpreta mg/dL l 019 tion Code Distric 23:50-0 [address] [place] [address] (60131) Eosinophils (Bld) 0.1 10*3/uL Invalid 0.0-0.7 Hospita [#/Vol] Interpreta K/uL l 019 tion Code Distric 23:50-0 [address] [place] [address] (92698) Eosinophils/100 WBC 1.0 % Invalid 0.0-7.0 % Hospita - (Bld) Interpreta l 019 tion Code Distric 23:50-0 [address] [place] [address] ([id number]) Erythrocyte 13.6 % Invalid 11.6-14.8 Hospita 01-28- distribution width Interpreta % l 019 (RBC) [Ratio] tion Code Distric 23:50-0 [address] [place] [address] (21786) GFR/1.73 sq 92 mL/min/{1.73_m2} Invalid >59 Hospita 0 9-23-2 M.predicted MDRD Interpreta mL/min/1.7 l 019 (S/P/Bld) [Vol tion Code 3m2 Distric 23:50-0 rate/Area] t [address] [place] [address] () Globulin (S) 3.0 g/dL Invalid 2.3-3.5 Hospita 09-23-2 [Mass/Vol] Interpreta g/dL l 019 tion Code Distric 23:50-0 [address] [place] [address] () Glucose [Mass/Vol] 111 mg/dL High 70-110 Hospita 09-2 3-2 mg/dL l 019 Distric 23:50-0 [address] [place] [address] ([id number]) HCO3 (P) [Moles/Vol] 18 Low 22-33 Hospita 09 -23-2 mEq/L l 019 Distric 23:50-0 [address] [place] [address] () Hematocrit (Bld) 43.4 % Invalid 36.0-46.0 Hospita 23- 2 [Volume fraction] Interpreta % l 019 tion Code Distric 23:50-0 [address] [place] [address] () Hemoglobin (Bld) 14.9 g/dL Invalid 13.0-15.0 Hospita 23- 2 [Mass/Vol] Interpreta g/dL l 019 tion Code Distric 23:50-0 [address] [place] [address] () Lymphocytes (Bld) 4.99 10*3/uL High 0.60-3.40 Hospita 09 -23-2 [#/Vol] K/uL l 019 Distric 23:50-0 [address] [place] [address] () Lymphocytes/100 WBC 53.0 % High 10.0-50.0 Hospita 09- 23-2 (Bld) % l 019 Distric 23:50-0 [address] [place] [address] ([id number]) MCH (RBC) [Entitic 29.0 pg Invalid 27.0-31.0 Hospita 09-2 3-2 mass] Interpreta pg l 019 tion Code Distric 23:50-0 [address] [place] [address] ([id number]) MCHC (RBC) 34.3 g/dL Invalid 32.0-36.0 Hospita 09-23-2 [Mass/Vol] Interpreta g/dL l 019 tion Code Distric 23:50-0 t #1 of 400 [facility] (25137) MCV (RBC) [Entitic 84.6 fL Invalid 80.0-97.0 Hospita 09-2 3-2 vol] Interpreta fL l 019 tion Code Distric 23:50-0 t #1 of 400 [facility] ([id number]) Monocytes (Bld) 0.9 10*3/uL Invalid 0.0-0.9 Hospita 01-28 [#/Vol] Interpreta K/uL l 019 tion Code Distric 23:50-0 t #1 of 400 [facility] (91201) Monocytes/100 WBC 9.1 % Invalid 0.0-12.0 % Hospita - 3-2 (Bld) Interpreta l 019 tion Code Distric 23:50-0 [address] [place] [address] (01437) Neutrophils (Bld) 3.45 10*3/uL Invalid 2.00-6.90 Hospita [#/Vol] Interpreta K/uL l 019 tion Code Distric 23:50-0 t #1 of 400 [facility] (48212) Neutrophils/100 WBC 36.7 % Low 37.0-80.0 Hospita -2 (Bld) % l 019 Distric 23:50-0 [address] [place] [address] (07597) Osmolality Calc 293 Invalid 280-295 Hospita [Osmolality] Interpreta l 019 tion Code Distric 23:50-0 t #1 of 400 [facility] (64742) Platelet mean volume 9.3 fL Invalid 7.4-10.0 Hospita -2 (Bld) [Entitic vol] Interpreta fL l 019 tion Code Distric 23:50-0 t #1 of 400 [facility] (45563) Platelets (Bld) 400 10*3/uL Invalid 150-400 Hospita 01-28 [#/Vol] Interpreta K/uL l 019 tion Code Distric 23:50-0 [address] [place] [address] (11299) Potassium 4.2 mmol/L Invalid 3.5-5.3 Hospita 01-28-2 [Moles/Vol] Interpreta mmol/L l 019 tion Code Distric 23:50-0 [address] [place] [address] (12941) Protein [Mass/Vol] 7.5 g/dL Invalid 6.0-8.3 Hospita 09-2 3-2 Interpreta g/dL l 019 tion Code Distric 23:50-0 [address] [place] [address] ([id number]) RBC (Bld) [#/Vol] 5.13 10*6/uL High 3.60-5.00 Hospita -2 M/uL l 019 Distric 23:50-0 [address] [place] [address] (55667) Sodium [Moles/Vol] 142 mmol/L Invalid 134-148 Hospita -2 Interpreta mmol/L l 019 tion Code Distric 23:50-0 [address] [place] [address] ([id number]) Troponin I.cardiac ng/mL Invalid 0.0-0.4 Hospita 09-2 3-2 [Mass/Vol] Interpreta ng/mL l 019 tion Code Distric 23:50-0 t [address] [place] [address] (25881) TSH Qn 3.40 Invalid 0.32-5.00 Hospita 01-28-2 Interpreta mIU/mL l 019 tion Code Distric 23:50-0 t [address] [place] [address] ([id number]) Urea nitrogen 10 mg/dL Invalid 5-25 mg/dL Hospita 01-28-2 [Mass/Vol] Interpreta l 019 tion Code Distric 23:50-0 [address] [place] [address] (86210) Valproate [Mass/Vol] 17.5 ug/mL Low 55.0-105.0 Hospita 01-28-2 ug/mL l 019 Distric 23:50-0 t [address] [place] [address] ([id number]) WBC (Bld) [#/Vol] 9.41 10*3/uL Invalid 5.00-10.00 Hospita 0 01-28-2 Interpreta K/uL l 019 tion Code Distric 23:50-0 t [address] [place] [address] ([id number]) laboratory on 2018-08-09 Albumin BCG dye 4.4 Invalid 3.6-5.1 Hospita 08-09-2 [Mass/Vol] Interpreta g/dL l 019 tion Code Distric 15:55-0 t [address] [place] [address] ([id number]) ALP [Catalytic 86 U/L Invalid 35-130 U/L Hospita 04-04-2 activity/Vol] Interpreta l 019 tion Code Distric 15:55-0 t [address] [place] [address] (33234) ALT [Catalytic 23 U/L Invalid 6-45 U/L Hospita 04-2 activity/Vol] Interpreta l 019 tion Code Distric 15:55-0 t [address] [place] [address] (75399) Anion gap 15 mmol/L High 6-14 Hospita 04-04-2 [Moles/Vol] l 019 Distric 15:55-0 t [address] [place] [address] (39097) AST [Catalytic 21 U/L Invalid 2-40 U/L Hospita 04-2 activity/Vol] Interpreta l 019 tion Code Distric 15:55-0 t [address] [place] [address] (68514) Bilirubin [Mass/Vol] 0.3 mg/dL Invalid 0.2-1.2 Hospita 04 -04-2 Interpreta mg/dL l 019 tion Code Distric 15:55-0 t [address] [place] [address] (48126) Calcium [Mass/Vol] 9.6 mg/dL Invalid 8.3-10.4 Hospita 04-0 4-2 Interpreta mg/dL l 019 tion Code Distric 15:55-0 t [address] [place] [address] ([id number]) Chloride [Moles/Vol] 105 mmol/L Invalid 95-114 Hospita 0 4-04-2 Interpreta mmol/L l 019 tion Code Distric 15:55-0 t [address] [place] [address] (64230) Cholesterol 219 mg/dL Invalid 100-240 Hospita 04-04-2 [Mass/Vol] Interpreta mg/dL l 019 tion Code Distric 15:55-0 t [address] [place] [address] (16356) Cholesterol in HDL 43 mg/dL Invalid 30-85 Hospita 04-0 4-2 [Mass/Vol] Interpreta mg/dL l 019 tion Code Distric 15:55-0 [address] [place] [address] (82686) Cholesterol in LDL 154 mg/dL High 0-100 Hospita 04-0 4-2 [Mass/Vol] mg/dL l 019 Distric 15:55-0 t [address] [place] [address] (86417) Cholesterol in VLDL 22 mg/dL Invalid 0-42 mg/dL Hospita -2 [Mass/Vol] Interpreta l 019 tion Code Distric 15:55-0 [address] [place] [address] (11796) Cholesterol.total/Ch 5.1 {ratio} Invalid 3.7-6.7 Hospita olesterol in HDL Interpreta l 019 [Mass ratio] tion Code Distric 15:55-0 t [address] [place] [address] (22668) Creatinine 0.73 mg/dL Invalid 0.50-1.50 Hospita 2 [Mass/Vol] Interpreta mg/dL l 019 tion Code Distric 15:55-0 t [address] [place] [address] (35179) GFR/1.73 sq 93 mL/min/{1.73_m2} Invalid >59 Hospita 0 04-2 M.predicted MDRD Interpreta mL/min/1.7 l 019 (S/P/Bld) [Vol tion Code 3m2 Distric 15:55-0 rate/Area] t [address] [place] [address] (83040) Globulin (S) 2.2 g/dL Low 2.3-3.5 Hospita 08-09-2 [Mass/Vol] g/dL l 019 Distric 15:55-0 t [address] [place] [address] ([id number]) Glucose [Mass/Vol] 72 mg/dL Invalid 70-110 Hospita 04-0 4-2 Interpreta mg/dL l 019 tion Code Distric 15:55-0 t [address] [place] [address] (65024) HCO3 (P) [Moles/Vol] 24 Invalid 22-33 Hospita 2 Interpreta mEq/L l 019 tion Code Distric 15:55-0 t [address] [place] [address] (72954) Osmolality Calc 286 Invalid 280-295 Hospita [Osmolality] Interpreta l 019 tion Code Distric 15:55-0 t [address] [place] [address] (62961) Potassium 3.9 mmol/L Invalid 3.5-5.3 Hospita 04-04-2 [Moles/Vol] Interpreta mmol/L l 019 tion Code Distric 15:55-0 t [address] [place] [address] ([id number]) Protein [Mass/Vol] 6.6 g/dL Invalid 6.0-8.3 Hospita 04-0 4-2 Interpreta g/dL l 019 tion Code Distric 15:55-0 [address] [place] [address] (03079) Sodium [Moles/Vol] 140 mmol/L Invalid 134-148 Hospita -2 Interpreta mmol/L l 019 tion Code Distric 15:55-0 t [address] [place] [address] (60644) Triglyceride 108 mg/dL Invalid 35-160 Hospita 08-09-2 [Mass/Vol] Interpreta mg/dL l 019 tion Code Distric 15:55-0 [address] [place] [address] (46772) Urea nitrogen 7 mg/dL Invalid 5-25 mg/dL Hospita 08-09- [Mass/Vol] Interpreta l 019 tion Code Distric 15:55-0 t [address] [place] [address] ([id number]) laboratory on 2018-05-22 C. trachomatis rRNA Negative Invalid Negative [facility] CHERIE+probe Ql (Unsp Interpreta (62881) 019 spec) tion Code 22:48-0 500 N. gonorrhoeae rRNA Negative Invalid Negative [facility] CHERIE+probe Ql (Unsp Interpreta (23135) 019 spec) tion Code 22:48-0 500 not yet categorized on 2018-05-18 CHLAMYDIA Negative NEGATIVE Hospita TRACHOMATIS, CHERIE l 019 Distric 15:00-0 t #1 of 500 [facility] ([id number]) FINAL CULTURE No Growth 48 hours Invalid Hospita 05-18 RESULTS Interpreta l 019 tion Code Distric 15:00-0 t #1 of 500 [facility] ([id number]) MEDIA PLATED Setup at 17:13 on 05/18/2018 Hospita l 019 Distric 15:00-0 [address] [place] [address] ([id number]) NEISSERIA Negative NEGATIVE Hospita GONORRHOEAE, CHERIE l 019 Distric 15:00-0 t #1 of 500 [facility] ([id number]) PRELIM CULTURE No Growth 24 hours Hospita RESULTS l 019 Distric 15:00-0 t #1 of 500 [facility] ([id number]) laboratory on 2018-04-24 C. trachomatis rRNA Negative Invalid Negative [facility] CHERIE+probe Ql (Unsp Interpreta (89139) 018 spec) tion Code 18:10-0 500 N. gonorrhoeae rRNA Negative Invalid Negative [facility] CHERIE+probe Ql (Unsp Interpreta (26147) 018 spec) tion Code 18:10-0 500 laboratory on 2018-04-21 HCV Ab Signal/Cutoff <0.1 Invalid 0.0-0.9 [facility] IA [Rel units/Vol] Interpreta s/co ratio (02365) 018 tion Code 19:18-0 500 HIV 1+2 Ab+HIV1 p24 Non Reactive Invalid Non [facility] Ag IA Ql Interpreta Reactive (25130) 018 tion Code 19:18-0 500 Prolactin [Mass/Vol] 15.3 ng/mL Invalid 4.8-23.3 [facility] 1 --2 Interpreta ng/mL (37101) 018 tion Code 08:25-0 500 Reagin Ab RPR Ql (S) Non Reactive Invalid Non [facility] Interpreta Reactive (03215) 018 tion Code 08:58-0 500 not yet categorized on 2018-04-19 CHLAMYDIA Negative NEGATIVE Hospita TRACHOMATIS, CHERIE l 018 Distric 16:33-0 t #1 of 500 [facility] ([id number]) HEP C VIRUS AB <0.1 Invalid 0.0-0.9 Hospita Interpreta S/CO RATIO l 018 tion Code Distric 16:33-0 t #1 of 500 [facility] ([id number]) HIV SCREEN 4TH NON REACTIVE Invalid NON Hospita 04-19 GENERATION WRFX Interpreta REACTIVE l 018 tion Code Distric 16:33-0 t #1 of 500 [facility] (80049) NEISSERIA Negative NEGATIVE Hospita GONORRHOEAE, CHERIE l 018 Distric 16:33-0 t #1 of 500 [facility] ([id number]) PROLACTIN 15.3 Invalid 4.8-23.3 Hospita Interpreta NG/ML l 018 tion Code Distric 16:33-0 t #1 of 500 [facility] ([id number]) laboratory on 2018-04-19 Reagin Ab RPR Ql (S) NON REACTIVE NON Hospita REACTIVE l 018 Distric 16:33-0 t #1 of 500 [facility] ([id number]) Social History Date Type Detail Facility Start: Tobacco smoking status NHIS Smokes tobacco antony ly [facility] 12-07-2019 (finding) [facility] ([id number]) Start: Occasionally Uses [facility] 12-07-2019 [facility] ([id number]) Start: Current Everyday Smoker [facility] 12-07-2019 [facility] ([id number]) Start: Cigarettes [facility] 12-07-2019 [facility] ([id number]) Start: No [facility] 12-07-2019 [facility] ([id number]) Start: Denies [facility] 12-07-2019 [facility] ([id number]) Start: Sex Assigned At Female [facility] 1990 [facility] ([id number]) Vital Signs Date Time Vital Sign Value Performing Clinician Facil ity 04-10-2018 Body height 165.1 cm [facility] 19:50-0500 Other Phone: [facility] ([id number]) 04-10-2018 Body mass index 38.09 kg/m2 [facility] 19:50-0500 (BMI) [Ratio] Other Phone: [facility] ([id number]) 04-10-2018 Body temperature 98.6 [degF] [facility] 19:50-0500 Other Phone: [facility] ([id number]) 04-10-2018 Body weight 103.83 kg [facility] al[facility] 19:50-0500 Other Phone: [facility] ([id number]) 2018 Body height 165.1 cm [facility] 14:20-0500 Other Phone: [facility] ([id number]) 2018 Body mass index 38.19 kg/m2 [facility] 14:20-0500 (BMI) [Ratio] Other Phone: [facility] ([id number]) 2018 Body weight 104.1 kg [facility] 14:20-0500 Other Phone: [facility] ([id number]) 02-28-2018 Body height 165.1 cm [facility] 14:000400 Other Phone: [facility] ([id number]) 02-28-2018 Body mass index 37.59 kg/m2 [facility] 14:000400 (BMI) [Ratio] Other Phone: [facility] ([id number]) 02-28-2018 Body weight 102.47 kg [facility] 14:00-0400 Other Phone: [facility] ([id number]) Functional Status The data below is from unstructured sourcesNo functional status results.No Functional Status information availableNo Functional Status information available Mental Status The data below is from unstructured sourcesNo Mental Status Information Available Clinical Note 2019-04-30 Note Date & Note Facility Type 04-30-2019 Comment (L) The Pap smear is a screening test [facility] (89926) Note designed to aid in the dete ction of~premalignant and malignant conditions of the uterine cervix. It is not a~diagnostic procedure and should not be used as the sole mean s of detecting~cervical cancer. Both false-positive and false-n egative reports do occur.~ Evaluation note Note Date & Note Facility Type Evaluation No Assessments Information Available [facility] ([id number]) History general Narrative - Reported Note Date & Note Facility Type History general Narrative - Reported Type Medical Bipolar affective disorder, remission status unspecified History Medical Intermittent explosive diso rder History Medical PTSD (post-traumatic stress disorder) History Medical HTN History Medical High cholesterol History Surgical No Surgical history informa tion History [facility] ([id number]) History general Narrative - Reported Note Date & Note Facility Type History general Narrative - Reported Type Medical Bipolar affective disorder, remission status unspecified History Medical Intermittent explosive diso rder History Medical PTSD (post-traumatic stress disorder) History Medical HTN History Medical High cholesterol History Surgical No know Surgical history History [facility] ([id number]) Discharge Instructions No hospital discharge instructions. Advance Directives Advance Directive Response Recorded Date/Time Advance Directives No Au 2019 7:14pm Health Care Power of Cashier Credit No December 07, 2019 7:14pm Organ Donor No December 7:14pm Resuscitation Status Full Code December 07, 2019 7:14pm Chief Complaint and Reason for Visit Chief Complaint Lower Extremity Reason for Visit [id number] Additional Source Comments This clinical document has been generated using [employer] software that has been certified by the Office of the National Coordinator for Health Information Technology (ONC 15.99.04.3023.Diam.[id number]) and the National Committee for Marketing Community Liaison (NCQA, as an eMeasure certified technology). FOR [...] BASED ON T HE PRIMARY CLINICAL RECORDS. [employer] provides no warranty or guara ntee of the accuracy or completeness of information in this document.The followi ng information is based on time limited clinical information UNRECOGNIZED CONTENT PROVIDED BELOW FOR UNRECOGNIZED SECTION REASON FOR VISIT BH f/uBH f/uRequests return call f/uBH f/uBH f/u JjournotRNBH f/uBH f/u Jjourn otRNpt reports she stepped on a piece of glass with her right foot. not visible to the eye. no broken skin. no tdap required. kbullardrnBH f/uBH f/uBH f/uBH f/u
--- OUTSIDE RECORDS SUMMARY | 2019-12-22 19:21 | XMS REPORT | Clinical Summary ---
Author Author [facility] Organization [facility] Address Unknown Phone Unavailable Care Team Providers Care Cell Reliner Name Role Phone PCP Unavailable Allergies Not [...]
--- OUTSIDE RECORDS SUMMARY | 2019-12-22 19:21 | XMS REPORT | Encounter Summary ---
Author Author [facility] Organization [facility] Address Unknown Phone Unavailable Care Team Providers Care Mold Maker Plastic Molds Name Role Phone PCP Unavailable Encounter Details Care Team Description Date Type Department Iqra Armstrong MD [address] [place] [address] [facility] [id number] [place] [address] Social History Date Tobacco Use Types Packs/Day [...] LIPID PROFILE SG Routine 07/09/2004 8:18 AM HIDE DROPPER DRUG PANEL 7 Routine 07/09/2004 8:18 AM HIDE DROPPER DIFFERENTIAL Routine 07/09/2004 8:18 AM HIDE DROPPER URINE TEST Routine 07/09/2004 8:18 AM HIDE DROPPER URINALYSIS (INCLUDES Routine 07/09/2004 MICROSCOPIC REVIEW, IF 8:18 AM HIDE DROPPER INDICATED) VALPROIC ACID Routine 07/09/2004 8:18 AM HIDE DROPPER THYROID CASCADE Routine 07/09/2004 8:18 AM HIDE DROPPER GLUCOSE Routine 07/09/2004 8:18 AM HIDE DROPPER GAMMA GLUTAMYL Routine 07/09/2004 TRANSFERASE 8:18 AM HIDE DROPPER CREATININE Routine 07/09/2004 8:18 AM HIDE DROPPER COMPLETE BLOOD COUNT Routine 07/09/2004 8:18 AM HIDE DROPPER ALANINE AMINOTRANSFERASE Routine 07/09/2004 8:18 AM HIDE DROPPER documented in this encounter Results * Valproic Acid (07/09/2004 8:18 AM HIDE DROPPER) Valproic Acid 75 50 - 100 UG/ML SUNQUEST Specimen Blood Performing Organization Address [facility] one Number SLRL [id number] [phone] SUNQUEST * Creatinine (07/09/2004 8:18 AM HIDE DROPPER) Creatinine 0.6 0.5 - 1.5 MG/DL SUNQUEST Specimen Blood Performing Organization Address [facility] one Number [facility] [address] [phone] 11 SUNQUEST * DIFFERENTIAL (07/09/2004 8:18 AM HIDE DROPPER) % Neutrophils 48 45 - 78 % [...] TH/UL SUNQUEST Specimen Blood Performing Organization Address [facility] one Number [facility] [address] [phone] SUNQUEST * Complete Blood Count (07/09/2004 8:18 AM HIDE DROPPER) WBC 7.0 4.0 - 11.0 TH/UL SUNQUEST [...] TH/UL SUNQUEST Specimen Blood Performing Organization Address [facility] one Number [facility] [address] [phone] 11 SUNQUEST * Gamma Glutamyl Transferase (07/09/2004 8:18 AM HIDE DROPPER) Gamma Glutamyl 16 15 - 80 IU/L SUNQUEST Transferase Specimen Blood Performing Organization Address [facility] one Number [facility] [address] [address] 11 SUNQUEST * Alanine Aminotransferase (07/09/2004 8:18 AM HIDE DROPPER) Alanine 18 (L) 20 - 60 IU/L SUNQUEST Aminotransferas e Specimen Blood Performing Organization Address [facility] one Number [facility] [address] [phone] SUNQUEST * Thyroid [place] (07/09/2004 8:18 AM HIDE DROPPER) Thyroid 3.34 0.35 - 5.50 UIU/ML SUNQUEST Stimulating Hormone Specimen Blood Performing Organization Address [facility] one Number [facility]RL [address] [address] 11 SUNQUEST * Glucose (07/09/2004 8:18 AM HIDE DROPPER) Glucose 75 65 - 100 MG/DL SUNQUEST Specimen Blood Performing Organization Address [facility] one Number [facility]RL [address] [phone] SUNQUEST * Lipid Profile Sg (07/09/2004 8:18 AM HIDE DROPPER) Cholesterol 161 <200 MG/DL SUNQUEST Triglycerides 61 <150 MG/DL SUNQUEST HDL Cholesterol 39 (L) >41 MG/DL SUNQUEST Cholesterol/HDL 4.1 <4.5 SUNQUEST Ratio Hours 13 SUNQUEST Postprandial LDL Cholesterol 110 (H) 0 - 99 MG/DL SUNQUEST Specimen Performing Organization Address [facility] one Number [facility] [address] [phone] SUNQUEST * Drug Panel 7 (07/09/2004 8:18 AM HIDE DROPPER) Amphetamines NotDetec SUNQUEST Urine Barbiturates NotDetec SUNQUEST Urine Benzodiazepines NotDetec SUNQUEST Urine Cocaine Urine NotDetec SUNQUEST Opiates Urine NotDetec SUNQUEST Phencyclidine NotDetec SUNQUEST Urine Tetrahydrocanna NotDetec SUNQUEST binol Urine Tape N/A SUNQUEST Creatinine 71.3 MG/DL SUNQUEST Urine Random Specimen Urine Performing Organization Address [facility] one Number [facility] [address] [place], [place] [address] SUNQUEST * Urinalysis (07/09/2004 8:18 AM HIDE DROPPER) Appearance, YELLOW SUNQUEST Urine Specific 1.015 <1.030 SUNQUEST Andes, UA PH Urine 8.0 5.0 - 8.0 SUNQUEST Hemoglobin NEGATIVE NEGATIVE SUNQUEST Urine Ketones Urine NEGATIVE NEGATIVE SUNQUEST Glucose Urine NEGATIVE NEGATIVE SUNQUEST Protein Urine NEGATIVE NEGATIVE SUNQUEST Qual Leukocyte NEGATIVE NEGATIVE SUNQUEST Esterase Urobilinogen NEGATIVE NEGATIVE SUNQUEST Urine Bilirubin Urine NEGATIVE NEGATIVE SUNQUEST Specimen Urine Performing Organization Address [facility] one Number [facility] [address] [place], [place] [address] SUNQUEST * Urine Test (07/09/2004 8:18 AM HIDE DROPPER) UCG Urine NEGATIVE SUNQUEST Specimen Urine Performing Organization Address [facility] one Number [facility] [address] [place], [place] [address] SUNQUEST documented in this encounter Visit Diagnoses Not on filedocumented in this encounter
--- OUTSIDE RECORDS SUMMARY | 2019-12-22 19:24 | XMS REPORT | Continuity of Care Document ---
Demographics Preferred Language Unknown Marital Status Unknown Druze Affiliation Unknown Race Unknown Ethnic Group Unknown Author Author [facility] [employer] Address Unknown Phone Unavailable Allergies Active Description Code Type Severity Reaction Onset Reported/Identified Relationship to Patient Clinical Status Yes NO KNOWN DRUG ALLERGIES UNKNOWN NO KNOWN DRUG ALLERG Yes NO KNOWN DRUG ALLERGIES UNKNOWN UNKNOWN Yes No Known Drug Allergies [id number] Drug Allergy Unknown N/A 05/26/2016 Medications Medication [...] Attending Type Code Diagnosis Diagnosed By 04/28/2016 YOLI ROMERO MONUMENT MASON Ot N63 UNSPECIFIED LUMP IN BREAST 05/18/2016 YOLI ROMERO MONUMENT MASON Ot N63 UNSPECIFIED LUMP IN BREAST 05/26/2016 YOLI ROMERO MONUMENT MASON Ot N63 UNSPECIFIED LUMP IN BREAST 05/26/2016 JOSHUA, BRENDAN MONUMENT MASON Ot F41.9 ANXIETY DISORDER, UNSPECIFIED 05/26/2016 JOSHUA, BRENDAN MONUMENT MASON Ot R00.2 PALPITATIONS 05/26/2016 JOSHUA, BRENDAN MONUMENT MASON Ot R10.13 EPIGASTRIC PAIN 05/27/2016 JOSHUA, BRENDAN MONUMENT MASON Ot F41.9 ANXIETY DISORDER, UNSPECIFIED 05/27/2016 JOSHUA, BRENDAN MONUMENT MASON Ot R00.2 PALPITATIONS 05/27/2016 JOSHUA, BRENDAN MONUMENT MASON Ot R10.13 EPIGASTRIC PAIN 06/29/2016 JOSHUA, BRENDAN MONUMENT MASON Ot F41.9 ANXIETY DISORDER, UNSPECIFIED 06/29/2016 JOSHUA, BRENDAN MONUMENT MASON Ot R00.2 PALPITATIONS 06/29/2016 JOSHUA, BRENDAN MONUMENT MASON Ot R10.13 EPIGASTRIC PAIN 01/31/2017 W 293.83 [...] MILD I NTELLECTUAL DISABILITIES 01/31/2017 W G43.909 CO GRAINE, UNSPECIFIED, NOT INTRACTABLE, WITHOUT STATUS MIGRAINOSUS [...] ACUT E PHARYNGITIS, UNSPECIFIED 04/19/2018 HIGINIO ENGEL W 271.1 GALACTOSEMIA 04/19/2018 HIGINIO ENGEL E74.21 GALACTOSEMIA 04/19/2018 HIGINIO ENGEL W V69.2 HIGH- RISK SEXUAL BEHAVIOR 04/19/2018 HIGINIO [...] Z72.51 HIG H RISK HETEROSEXUAL BEHAVIOR 04/19/2018 HIGINIO ENGEL W 271.1 GALACTOSEMIA 04/19/2018 HIGINIO ENGEL W E74.21 GALACTOSEMIA 04/19/2018 HIGINIO ENGEL W V69.2 HIGH- RISK SEXUAL BEHAVIOR 04/19/2018 HIGINIO ENGEL W Z72.51 HIGH RISK HETEROSEXUAL BEHAVIOR 05/07/2018 W 034.0 STRE PTOCOCCAL SORE THROAT 05/07/2018 W B95.3 STRE PTOCOCCUS PNEUMONIAE THE CAUSE OF DISEASES CLASSIFIED ELSEWHERE 05/18/2018 W 616.10 VAG INITIS AND VULVOVAGINITIS, UNSPECIFIED 05/18/2018 W N76.0 ACUT E VAGINITIS 05/22/2018 YOLI ROMERO MONUMENT MASON Ot N63 UNSPECIFIED LUMP IN BREAST 05/23/2018 HIGINIO ENGEL MD Ot N64.3 GALACTORRHEA NOT ASSOCIATED WITH CHILDBI 06/04/2018 W 703.0 INGR OWING NAIL 06/04/2018 W L60.0 INGR OWING NAIL 06/13/2018 HIGINIO ENGEL MD Ot N64.3 GALACTORRHEA NOT ASSOCIATED WITH CHILDBI 08/09/2018 TORO HIGINIO W 401.0 MALIGNANT ESSENTIAL HYPERTENSION 08/09/2018 TORO HIGINIO W I10 ESSENTIAL (PRIMARY) HYPERTENSION 08/09/2018 TORO HIGINIO W 272.4 OTHER AND UNSPECIFIED HYPERLIPIDEMIA 08/09/2018 HIGINIO ENGEL W 401.0 MALIGNANT ESSENTIAL HYPERTENSION 08/09/2018 TORO HIGINIO W E78.5 HYPERLIPIDEMIA, UNSPECIFIED 08/09/2018 TORO HIGINIO W I10 ESSENTIAL (PRIMARY) HYPERTENSION 08/09/2018 W [...] Romero M25.531 PAIN IN RIGHT WRIST 01/21/2019 YOLI ROMERO MONUMENT MASON Ot N63 UNSPECIFIED LUMP IN BREAST 01/21/2019 HIGINIO ENGEL MD Ot N64.3 GALACTORRHEA NOT ASSOCIATED WITH CHILDBI 01/21/2019 YOLI ROMERO MONUMENT MASON Ot N63 UNSPECIFIED LUMP IN BREAST 01/21/2019 HIGINIO ENGEL MD Ot N64.3 GALACTORRHEA NOT ASSOCIATED WITH CHILDBI 01/21/2019 Cheri Romero 719.42 PAIN IN JOINT INVOLVING UPPER ARM 01/21/2019 Cheri Romero 719.43 PAIN IN JOINT INVOLVING FOREARM 01/21/2019 JhoanYoliCheri W M25.521 PAIN IN RIGHT ELBOW 01/21/2019 Cheri Romero M25.531 PAIN IN RIGHT WRIST 01/23/2019 YOLI ROMERO MONUMENT MASON Ot S59.901A UNSPECIFIED INJURY OF RIGHT ELBOW, INITI 01/23/2019 YOLI ROMERO MONUMENT MASON Ot S59.911A UNSPECIFIED INJURY OF RIGHT FOREARM, INI 01/23/2019 YOLI ROMERO MONUMENT MASON Ot S69.91XA UNSP INJURY OF RIGHT WRIST, HAND AND FIN 01/23/2019 YOLI ROMERO MONUMENT MASON Ot W19.XXXA UNSPECIFIED FALL, INITIAL ENCOUNTER 01/29/2019 [...] CAUSE OF DISEASES CLASSD ELSWHR 07/12/2019 Rigoberto Zaabla B95.0 STREPTOCOCCUS, GROUP A, CAUSING DISEASES CLASSD [...] Zabala M25.531 PAIN IN RIGHT WRIST 07/12/2019 Rigoberto Zabala N39.0 URINARY TRACT INFECTION, SITE NOT SPECIFIED 07/12/2019 Rigoberto Zabala N76.0 ACUTE VAGINITIS 07/12/2019 Rigoberto Zabala R 05 COUGH 07/12/2019 Rigoberto Zabala R06.02 SHORTNESS OF BREATH 07/12/2019 Rigoberto Zabala Z30.9 ENCOUNTER FOR CONTRACEPTIVE MANAGEMENT, UNSPECIFIED 07/12/2019 Rigoberto Zabala Z72.51 HIGH RISK HETEROSEXUAL BEHAVIOR 07/23/2019 YOLI ROMERO MONUMENT MASON Ot S59.901A UNSPECIFIED INJURY OF RIGHT ELBOW, INITI 07/23/2019 YOLI ROMERO MONUMENT MASON Ot S59.911A UNSPECIFIED INJURY OF RIGHT FOREARM, INI 07/23/2019 YOLI ROMERO MONUMENT MASON Ot S69.91XA UNSP INJURY OF RIGHT WRIST, HAND AND FIN 07/23/2019 YOLI ROMERO MONUMENT MASON Ot W19.XXXA UNSPECIFIED FALL, INITIAL ENCOUNTER 08/08/2019 Evelio Byrne W 427.89 OTHER SPECIFIED CARDIAC DYSRHYTHMIAS 08/08/2019 Evelio Byrne W I45.4 NONSPECIFIC INTRAVENTRICULAR BLOCK 08/08/2019 Evelio Byrne W 427.89 OTHER SPECIFIED CARDIAC DYSRHYTHMIAS 08/08/2019 Evelio Byrne W I45.4 NONSPECIFIC INTRAVENTRICULAR BLOCK 08/08/2019 Evelio Byrne W 427.89 OTHER S 08/08/2019 Evelio Byrne W B95.0 STREPTOCOCCUS, GROUP A, CAUSING DISEASES CLASSD ELSWHR 08/08/2019 Eveloi Byrne W B95.3 STREPTOCOCCUS PNEUMONIAE CAUSING DISEASES CLASSD ELSWHR 08/08/2019 Evelio Byrne W E74.21 GALACTOSEMIA 08/08/2019 Evelio Byrne W E78.5 HYPERLIPIDEMIA, UNSPECIFIED 08/08/2019 Evelio Byrne W 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 08/08/2019 Evelio Byrne W F63.81 INTERMITTENT EXPLOSIVE DISORDER 08/08/2019 Evelio Byrne W F70 MILD INTELLECTUAL DISABILITIES 08/08/2019 Evelio Byrne W G43.909 MIGRAINE, UNSP, NOT INTRACTABLE, WITHOUT STATUS MIGRAINOSUS 08/08/2019 Evelio Byrne W I10 ESSENTIAL (PRIMARY) HYPERTENSION 08/08/2019 Evelio Byrne W I45.4 NONSPECIFIC INTRAVENTRICULAR BLOCK 08/08/2019 Evelio Byrne W I47.1 SUPRAVENTRICULAR TACHYCARDIA 08/08/2019 Evelio Byrne W J01.90 ACUTE SINUSITIS, UNSPECIFIED 08/08/2019 Evelio Byrne J02.9 ACUTE PHARYNGITIS, UNSPECIFIED 08/08/2019 Evelio Byrne W J20.9 ACUTE BRONCHITIS, UNSPECIFIED 08/08/2019 Evelio Byrne W J30.2 OTHER SEASONAL ALLERGIC RHINITIS 08/08/2019 Brown, Evelio W L60.0 INGROWING NAIL 08/08/2019 Brown, Evelio W M25.521 PAIN IN RIGHT ELBOW 08/08/2019 Brown, Evelio W M25.531 PAIN IN RIGHT WRIST 08/08/2019 Brown, Evelio W N39.0 URINARY TRACT INFECTION, SITE NOT SPECIFIED 08/08/2019 Brown, Evelio W N76.0 ACUTE VAGINITIS 08/08/2019 Brown, Evelio W R05 COUGH 08/08/2019 Brown, Evelio W R06.02 SHORTNESS OF BREATH 08/08/2019 Brown, Evelio W Z30.9 ENCOUNTER FOR CONTRACEPTIVE MANAGEMENT, UNSPECIFIED 08/08/2019 Brown, Evelio W Z72.51 HIGH RISK HETEROSEXUAL BEHAVIOR 09/20/2019 Brown, Evelio W B35.4 TINEA CORPORIS 10/17/2019 Brown, Evelio W 719.41 PAIN IN JOINT INVOLVING SHOULDER REGIO 10/17/2019 Brown, Evelio W B95.0 STREPTOCOCCUS, GROUP A, CAUSING DISEASES CLASSD ELSWHR 10/17/2019 Brown, Evelio W B95.3 STREPTOCOCCUS PNEUMONIAE CAUSING DISEASES CLASSD ELSWHR 10/17/2019 Brown, Evelio W E74.21 GALACTOSEMIA 10/17/2019 Brown, Evelio W E78.5 HYPERLIPIDEMIA, UNSPECIFIED 10/17/2019 Brown, Evelio W F63.81 INTERMITTENT EXPLOSIVE DISORDER 10/17/2019 Brown, Evelio W F70 MILD INTELLECTUAL DISABILITIES 10/17/2019 Brown, Evelio G43.909 MIGRAINE, UNSP, NOT INTRACTABLE, WITH 10/17/2019 Brown, Evelio W I10 ESSENTIAL (PRIMARY) HYPERTENSION 10/17/2019 Brown, Evelio W I45.4 NONSPECIFIC INTRAVENTRICULAR BLOCK 10/17/2019 Brown, Evelio W I47.1 SUPRAVENTRICULAR TACHYCARDIA 10/17/2019 Brown, Evelio W J01.90 ACUTE SINUSITIS, UNSPECIFIED 10/17/2019 Brown, Evelio W J02.9 ACUTE PHARYNGITIS, UNSPECIFIED 10/17/2019 Brown, Evelio W J20.9 ACUTE BRONCHITIS, UNSPECIFIED 10/17/2019 Brown, Evelio W J30.2 OTHER SEASONAL ALLERGIC RHINITIS 10/17/2019 Brown, Evelio W L60.0 INGROWING NAIL 10/17/2019 Brown, Evelio W M25.512 PAIN IN LEFT SHOULDER [...] HIGH RISK HETEROSEXUAL BEHAVIOR 10/22/2019 Cheri Romero N76.0 ACUTE VAGINITIS 10/24/2019 Evelio Byrne W 719.41 PAIN IN JOINT INVOLVING SHOULDER REGION 10/24/2019 Evelio Byrne W M25.512 PAIN IN LEFT SHOULDER 12/10/2019 URMILA CARVALHO, JEOVANNY Hall Ot F31.9 BIPOLAR DISORDER, UNSPECIFIED 12/10/2019 URMILA CARVALHO, JEOVANNY Hall Ot F60.9 PERSONALITY DISORDER, UNSPECIFIED 12/10/2019 URMILA CARVALHO, JEOVANNY Hall Ot F63.81 INTERMITTENT EXPLOSIVE DISORDER 12/10/2019 URMILA CARVALHO, JEOVANNY Hall Ot F79 UNSPECIFIED INTELLECTUAL DISABILITIES 12/10/2019 URMILA CARVALHO, JEOVANNY Hall Ot I47.1 SUPRAVENTRICULAR TACHYCARDIA 12/10/2019 URMILA CARVALHO, JEOVANNY Hall Ot J45.909 UNSPECIFIED ASTHMA, UNCOMPLICATED 12/10/2019 URMILA CARVALHO, JEOVANNY Hall Ot K21.9 GASTRO-ESOPHAGEAL REFLUX DISEASE WITHOUT 12/10/2019 URMILA CARVALHO, JEOVANNY Hall Ot M79.672 PAIN IN LEFT FOOT 12/10/2019 JEOVANNY KEARNS MD Ot Z79.899 OTHER GROUP HOME (CURRENT) DRUG THERAPY Procedures There is no data. Results Test Result Range Pap Smear - 04/08/16 13:00 Pap Smear Sent to Pathology Prolactin - 04/19/18 15:33 Prolactin 15.3 ng/mL 4.8-23.3 Panel [id number] - 04/19/18 15:33 HIV Screen 4th Generation [...] Negative Urine-Blood Trace-lysed Negative Urine-Color Yellow Colorless-Lt. [place] ow Urine-Epithelial Cells 5-10/HPF Urine-Glucose Negative Negative Urine-Ketones Negative Negative Urine-Leukocytes 1+ Negative Urine-Mucus 1+ Urine-Nitrite Negative Negative Urine-Other Culture to follow Urine-pH 5.5 5-8.5 Urine-Protein Negative Negative Urine-RBC 0-2/HPF Urine-Specific [place] 1.025 1.000-1 .030 Urine-WBC 20-40/HPF Urobilinogen 0.2 0.2-1.0 Urine Culture - 01/28/19 23:59 PRELIM CULTURE RESULTS 10,000-20,000 Gram Po sitive Mixed [place] [id number] Skin Contaminant FINAL CULTURE RESULTS 20,000-50,000 Gram Pos itive Mixed [place] [id number] Skin Contaminant [id number] Further Workup done MEDIA PLATED Setup at 00:04 on 01/29/2019 CULTURE SOURCE random clean catch Urine Culture - 01/28/19 23:59 PRELIM CULTURE RESULTS 10,000-20,000 Gram Po sitive Mixed [place] [id number] Skin Contaminant MEDIA PLATED Setup at 00:04 [...] 35.0 g/dL 32.0-36.0 MCV 85.5 fL 80.0-97.0 Terry% 8.0 % 0.0-12.0 MPV 9.4 fL 7.4-10.0 Sandra% 47.9 % 37.0-80.0 Plt 373 K/uL 150-400 RBC 4.75 M/uL 3.60-5.00 RDW 12.7 % 11.6-14.8 WBC 6.76 K/uL 5.00-10.00 Sandra 3.24 K/uL 2.00-6.90 Terry 0.5 K/uL 0.0-0.9 Baso 0.0 K/uL 0.0-0.2 Protime - 07/04/19 10:53 INR 1.1 1.0-4.0 Protime 12.3 Sec 9.9-12.8 Test-Serum - 07/12/19 08:38 Preg Test-S Negative Negative Magnesium - 08/08/19 20:10 Mg++ 1.9 mg/dL 1.6-2.6 Other Culture - 10/22/19 14:48 PRELIM CULTURE RESULTS Moderate Gram Negativ e Lactose Fuse Maker AMILCAR / ID to Follow MEDIA PLATED [...] Status Pt. Type Provider Facility Loc./Unit Complaint [id number] 05/22/2018 23:08:00 Document Registration [id number] 05/02/2019 14:09:00 Document Registration [id number] 01/28/2019 22:35:00 Document Registration [id number] 12/07/2019 18:58:00 19:33:00 DIS Outpatient URMILA CARVALHO, JEOVANNY Hall [facility] ER L FOOT PAIN [id number] 04/08/2019 08:00:00 23:59:59 CLS Preadmit Keyla BARNHART MD [facility] CATH PSVT [id number] 01/21/2019 17:31:00 23:59:59 CLS Outpatient YOLI ROMERO [facility] RAD RT WRIST AND FOREARM PA IN [id number] 05/22/2018 13:13:00 23:59:59 CLS Outpatient HIGINIO ENGEL MD [facility] RAD GALACTORRHEA [id number] 05/26/2016 17:33:00 017 18:23:00 DIS Emergency BRENDAN LEWIS [facility] ER CP [id number] 04/27/2016 13:19:00 016 23:59:59 CLS Outpatient YOLI ROMERO [facility] RAD PALPATED NODULES, LT BR EAST [id number] 08/09/2018 17:21:00 Document Registration [id number] 04/21/2018 19:07:00 Document Registration [id number] 12/13/2019 13:33:00 12/13/2019 23:59 :00 DIS Outpatient RENNY GRACIA [id number] 11/15/2019 10:00:00 11/15/2019 23:59 :00 DIS Outpatient Cheri Romero [id number] 10/24/2019 13:16:00 10/24/2019 23:59 :00 DIS Outpatient HIGINIO ENGEL [id number] 10/24/2019 10:32:00 10/24/2019 23:59 :00 DIS Outpatient HIGINIO ENGEL [id number] 10/22/2019 17:24:00 10/22/2019 23:59 :00 DIS Outpatient Cheri Romero [id number] 10/22/2019 10:52:00 10/22/2019 23:59 :00 DIS Outpatient Cheri Romero [id number] 09/24/2019 09:28:00 10/17/2019 13:45 :00 DIS Outpatient Evelio Byrne [id number] 09/21/2019 10:29:00 09/21/2019 23:59 :00 DIS Outpatient Evelio Byrne [id number] 09/20/2019 08:24:00 09/20/2019 23:59 :00 DIS Outpatient Cheri Romero [id number] 08/08/2019 19:31:00 08/08/2019 21:10 :00 DIS Outpatient Evelio Byrne [facility] ER [id number] 07/12/2019 00:00:00 07/12/2019 11:05 :00 DIS Outpatient Rigoberto Zabala [id number] 07/04/2019 10:23:00 07/04/2019 23:59 :00 DIS Outpatient Rigoberto Zabala [id number] 07/01/2019 15:49:00 07/01/2019 23:59 :00 DIS Outpatient TORO HIGINIO [id number] 06/11/2019 16:47:00 06/11/2019 23:59 :00 DIS Outpatient TORO, HIGINIO [id number] 05/30/2019 12:55:00 05/30/2019 23:59 :00 DIS Outpatient Rigoberto Zabala [id number] 05/22/2019 10:23:00 05/22/2019 23:59 :00 DIS Outpatient HIGINIO ENGEL [id number] 05/22/2019 10:00:00 05/22/2019 23:59 :00 DIS Outpatient TORO, HIGINIO [id number] 04/29/2019 00:00:00 04/29/2019 23:59 :00 DIS Outpatient Cheri Romero [id number] 04/23/2019 14:01:00 04/23/2019 23:59 :00 DIS Outpatient HIGINIO ENGEL [id number] 04/23/2019 00:00:00 04/23/2019 23:59 :00 DIS Outpatient HIGINIO ENGEL [id number] 04/15/2019 17:14:00 04/15/2019 23:59 :00 DIS Outpatient TORO, HIGINIO [id number] 04/10/2019 08:55:00 04/10/2019 23:59: 00 DIS Outpatient HIGINIO ENGEL [id number] 01/29/2019 11:31:00 01/29/2019 23:59: 00 DIS Outpatient HIGINIO ENGEL [id number] 01/29/2019 10:00:00 01/29/2019 23:59: 00 DIS Outpatient HIGINIO ENGEL [id number] 01/28/2019 22:35:00 01/29/2019 01:25: 00 DIS Outpatient DAVID GONZALEZ [facility] [id number] 01/21/2019 14:40:00 01/21/2019 23:59: 00 DIS Outpatient Cheri Romero [id number] 01/14/2019 15:02:00 01/14/2019 23:59: 00 DIS Outpatient Cheri Romero [id number] 08/09/2018 17:21:00 08/09/2018 23:59: 00 DIS Outpatient TORO HIGINIO [id number] 05/18/2018 15:42:00 05/18/2018 23:59: 00 DIS Outpatient Cheri Romero [id number] 04/19/2018 15:33:00 04/19/2018 23:59: 00 DIS Outpatient HIGINIO ENGEL [id number] 02/13/2018 14:41:00 02/13/2018 23:59: 00 DIS Outpatient HIGINIO ENGEL [id number] 02/13/2018 00:00:00 02/13/2018 23:59: 00 DIS Outpatient HIGINIO ENGEL [id number] 04/08/2016 15:31:00 04/08/2016 23:59: 00 DIS Outpatient HIGINIO ENGEL [id number] 01/29/2019 01:06:01 Document Registration [id number] 09/03/2018 14:30:00 Document Registration [id number] 08/28/2018 10:30:00 Document Registration [id number] 08/09/2018 14:40:00 Document Registration [id number] 06/04/2018 14:30:00 Document Registration [id number] 05/18/2018 13:30:00 Document Registration [id number] 05/07/2018 13:40:00 Document Registration [id number] 04/19/2018 14:10:00 Document Registration [id number] 07/19/2017 14:10:00 Document Registration [id number] 06/12/2017 14:24:00 Document Registration [id number] 01/31/2017 14:30:00 Document Registration [id number] 11/21/2019 11:30:00 11/21/2019 23:59: 59 CLS Outpatient KENIA MATIAS [facility] [id number] 04/24/2018 17:13:00 Document Registration [id number] 04/26/2019 08:12:00 Document Registration [id number] 04/25/2019 20:08:00 Document Registration
--- NOTE | 2019-12-22 19:27 | ED Chest Pain ---
General Stated Complaint: CP/SOA Source: patient Exam Limitations: no limitations History of Present Illness Date Seen by Provider: Dec 22, 2019 Time Seen by Provider: 19:24 Initial Comments To ER by EMS from home with reports of palpitations. This began about noon, about 30 minutes after the palpitations began she noticed some chest tightness, wheezing, shortness of breath no fevers no exposure to ill contacts. She does have asthma and she was smoking some cigarettes this morning. She also has a history of paroxysmal atrial fibrillation she states, she follows with Dr. Kidd. She is on metoprolol but no anticoagulation. She states that she was told if she had another episode of atrial fibrillation that they would start her on oral anticoagulation at that time. On arrival to ER she is normal sinus rhythm at 80. 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: No NTG SL MERGERS AND ACQUISITIONS ATTORNEY: No Associated Symptoms: shortness of breath Allergies and Home Medications Allergies Coded Allergies: No Known Drug Allergies (Unverified , 05/26/16) Home Medications Albuterol Sulfate 1 Puff Puff, 2 PUFF IH Q4H PRN for WHEEZING 1 PUFF = 90 MCG Prescribed by: SHAHRZAD QUINTANA on 12/22/192026 Cetirizine HCl 10 Mg Tablet, 10 MG PO DAILY, (Reported) Cyanocobalamin/Folic Acid 1 Each Tablet, 1 EACH PO DAILY, (Reported) Docusate Sodium 100 Mg Capsule, 100 MG PO BID, (Reported) Melatonin 3 Mg Tablet, 3 MG PO HS, (Reported) Omeprazole 20 Mg Capsule.dr, 20 MG PO DAILY, (Reported) Polyethylene Glycol 3350 17 Gm Powd.pack, 17 GM PO DAILY, (Reported) Patient Home Medication List Home Medication List Reviewed: Yes Review of Systems Review of Systems Constitutional: see HPI; No chills, No fever EENTM: No Symptoms Reported Respiratory: See HPI; Denies Cough, Denies Wheezing Cardiovascular: See HPI, Chest Pain Gastrointestinal: No Symptoms Reported Genitourinary: No Symptoms Reported Musculoskeletal: no symptoms reported Skin: no symptoms reported Psychiatric/Neurological: See HPI, Anxiety Endocrine: No Symptoms Reported Past Zcpsaif-Wktfbc-Arvtra Hx Patient Social History Alcohol Beverage of Choice: Beer Type Used: Cigarettes 2nd Hand Smoke Exposure: Yes Recent Hopitalizations: No Immunizations Up To Date Tetanus Booster (TDap): Unknown Date of Influenza Vaccine: Feb 06, 2020 Past Medical History Surgeries: Yes Orthopedic Respiratory: Yes Asthma Cardiac: Yes (SVT) Irregular Heartbeat Neurological: No 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 oz. 95.538041zk; 41.00 BMI Method:Stated General Appearance: No Apparent Distress, WD/WN, Anxious, Other (N1 100% room air, heart rate 80s sinus no ectopy.) Respiratory: Normal Breath Sounds, No Accessory Muscle Use, No Respiratory Distress Cardiovascular: Regular Rate, Rhythm, Normal Peripheral Pulses Gastrointestinal: Non Tender Extremity: Normal Capillary Refill, Normal Inspection Neurologic/Psychiatric: Alert ( Afebrile), Oriented x3 Skin: Normal Color, Warm/Dry Progress/Results/Core Measures Results/Orders Lab Results Laboratory Tests Test 12/22/19 19:20 12/22/19 20:00 Range/Units White Blood Count 8.6 4.3-11.0 10^3/uL Red Blood Count 5.06 4.35-5.85 10^6/uL Hemoglobin 15.0 11.5-16.0 G/DL Hematocrit 42 35-52 % Mean Corpuscular Volume 83 80-99 FL Mean Corpuscular Hemoglobin 30 25-34 PG Mean Corpuscular Hemoglobin Concent 36 32-36 G/DL Red Cell Distribution Width 13.4 10.0-14.5 % Platelet Count 465 H 130-400 10^3/uL Mean Platelet Volume 10.4 7.4-10.4 FL Neutrophils (%) (Auto) 34 L 42-75 % Lymphocytes (%) (Auto) 54 H 12-44 % Monocytes (%) (Auto) 10 0-12 % Eosinophils (%) (Auto) 2 0-10 % Basophils (%) (Auto) 0 0-10 % Neutrophils # (Auto) 2.9 1.8-7.8 X 10^3 Lymphocytes # (Auto) 4.6 H 1.0-4.0 X 10^3 Monocytes # (Auto) 0.8 0.0-1.0 X 10^3 Eosinophils # (Auto) 0.2 0.0-0.3 10^3/uL Basophils # (Auto) 0.0 0.0-0.1 10^3/uL D-Dimer 0.28 0.00-0.49 UG/ML Sodium Level 138 135-145 MMOL/L Potassium Level 3.3 L 3.6-5.0 MMOL/L Chloride Level 103 98-107 MMOL/L Carbon Dioxide Level 21 21-32 MMOL/L Anion Gap 14 5-14 MMOL/L Blood Urea Nitrogen 7 7-18 MG/DL Creatinine 0.82 0.60-1.30 MG/DL Estimat Glomerular Filtration Rate > 60 BUN/Creatinine Ratio 9 Glucose Level 101 70-105 MG/DL Calcium Level 10.7 H 8.5-10.1 MG/DL Corrected Calcium 8.5-10.1 MG/DL Total Bilirubin 0.6 0.1-1.0 MG/DL Aspartate Amino Transf (AST/SGOT) 21 5-34 U/L Alanine Aminotransferase (ALT/SGPT) 31 0-55 U/L Alkaline Phosphatase 69 40-136 U/L Troponin I < 0.028 <0.028 NG/ML C-Reactive Protein High Sensitivity 0.73 H 0.00-0.50 MG/DL Total Protein 7.6 6.4-8.2 GM/DL Albumin 4.8 H 3.2-4.5 GM/DL Serum Test, Qualitative NEGATIVE NEGATIVE Urine Color YELLOW Urine Clarity CLEAR Urine pH 8.0 5-9 Urine Specific [place] 1.010 L 1.016-1.022 Urine Protein NEGATIVE NEGATIVE Urine Glucose (UA) NEGATIVE NEGATIVE Urine Ketones NEGATIVE NEGATIVE Urine Nitrite NEGATIVE NEGATIVE Urine Bilirubin NEGATIVE NEGATIVE Urine Urobilinogen 0.2 < = 1.0 MG/DL Urine Leukocyte Esterase TRACE H NEGATIVE Urine RBC (Auto) NEGATIVE NEGATIVE Urine RBC NONE /HPF Urine WBC 2-5 /HPF Urine Squamous Epithelial Cells 2-5 /HPF Urine Crystals NONE /LPF Urine Bacteria TRACE /HPF Urine Casts NONE /LPF Urine Mucus NEGATIVE /LPF Urine Culture Indicated NO Urine Opiates Screen NEGATIVE NEGATIVE Urine Oxycodone Screen NEGATIVE NEGATIVE Urine Methadone Screen NEGATIVE NEGATIVE Urine Propoxyphene Screen NEGATIVE NEGATIVE Urine Barbiturates Screen NEGATIVE NEGATIVE Ur Tricyclic Antidepressants Screen NEGATIVE NEGATIVE Urine Phencyclidine Screen NEGATIVE NEGATIVE Urine Amphetamines Screen NEGATIVE NEGATIVE Urine Methamphetamines Screen POSITIVE H NEGATIVE Urine Benzodiazepines Screen NEGATIVE NEGATIVE Urine Cocaine Screen NEGATIVE NEGATIVE Urine Cannabinoids Screen POSITIVE H NEGATIVE My Orders Orders - SHAHRZAD QUINTANA APRN Aspirin Chewable Tablet (Baby Aspirin Ch (12/22/19 19:30) Lorazepam Injection (Ativan Injection) (12/22/19 19:30) Albuterol Pre-Mix Nebs (Rt) (Proventil (12/22/19 19:30) Svn Small Volume Nebulizer (12/22/19 19:22) Cbc With Automated Diff (12/22/19:22) Hs C Reactive Protein (12/22/19:22) Hcg,Qualitative Serum (12/22/19 19:22) Comprehensive Metabolic Panel (12/22/19 19:22) Fibrin Degradation Products (12/22/19:22) Troponin I (12/22/19:22) Ekg Tracing (12/22/19 19:22) Ua Culture If Indicated (12/22/19 19:22) Drug Screen Stat (Urine) (12/22/19 19:22) Metoprolol Tartrate Injection (Lopressor (12/22/19 19:46) Promethazine Injection (Phenergan Injec (12/22/19 20:00) Chest 1 View, Ap/Pa Only (12/22/19 19:59) Medications Given in ED Current Medications Medications Dose Ordered Sig/Edward Route Start Time Stop Time Status Last Admin Dose Admin Albuterol Sulfate 2.5 mg ONCE ONCE INH 12/22/19 19:30 12/22/19 19:31 DC 12/22/19 19:40 2.5 MG Aspirin 324 mg ONCE ONCE PO 12/22/19 19:30 12/22/19 19:31 DC 12/22/19 19:40 324 MG Lorazepam 0.5 mg ONCE PRN IVP 12/22/19 19:30 12/22/19 19:45 0.5 MG Metoprolol Tartrate 5 mg STK-MED ONCE .ROUTE 12/22/19 19:46 12/22/19 19:50 DC 12/22/19 20:17 5 MG Promethazine HCl 12.5 mg ONCE ONCE IVP 12/22/19 20:00 12/22/19 20:01 DC 12/22/19 20:15 12.5 MG Vital Signs/I&O 12/22/19 19:36 Temp 36.7 Pulse 83 Resp 20 B/P (MAP) 163/90 (114) Pulse Ox 96 O2 Delivery Room Air Departure Communication (Admissions) 2006-her heart rate did go up to between 1:15 and 125 following the albuterol nebulizer treatments. She also reported feeling very shaky and somewhat nauseous. Discussed with her that these were common after albuterol treatment. Phenergan 12.5 mg ordered and 5 mg of Lopressor IV ordered area and the rhythm remained sinus without ectopy. 2025-I discussed with the patient's mother and the patient herself. I did not tell the patient's mother what was in the drug screen. I did tell the patient that methamphetamine was in the drug screen. She shakes her head yes and says "yeah, tonight was my first time doing and right after I smoked I felt really weird". Will discharge to home. Patient's mother states that normally she goes to [facility] and she has to have her heart "jump started". She is concerned that we didn't do that here today. Impression Primary Impression: Anxiety Additional Impression: Heart palpitations Disposition: HOME, SELF-CARE Condition: Stable Departure-Patient Inst. Decision time for Depature: 19:58 Referrals: HIGINIO ENGEL MD (PCP/Family) Primary Care Physician Patient Instructions: Palpitations (DC) Add. Discharge Instructions: Return to ER for any worsening 2. Follow-up with your doctor next week 3. Scripts Albuterol Sulfate (PROAIR HFA) 1 Puff Puff 2 PUFF IH Q4H PRN for WHEEZING, #1 PUFF 1 PUFF = 90 MCG Prov: SHAHRZAD QUINTANA APRN 12/22/19 Copy Copies To 1: HIGINIO ENGEL MD, PETER J APRN Dec 22, 2019 19:27
[2019-12-22] MEDS ORDERED: LORazepam INJ 2 MG/ML (ATIVAN) VIAL IVP PRN (19:30)
[2019-12-22] MEDS ORDERED: ASPIRIN 81 MG CHEW (CHILDREN'S ASA) PO ONE (19:30)
[2019-12-22] MEDS ORDERED: RT-ALBUTEROL SULF 2.5 MG/3 ML PRE-MIX VIAL INH ONE (19:30)
[2019-12-22 19:37] LABS: BASOPHILS % (AUTO) 0 % (0-10); EOSINOPHILS # (AUTO) 0.2 10^3/uL (0.0-0.3); EOSINOPHILS % (AUTO) 2 % (0-10); HEMATOCRIT 42 % (35-52); LYMPHOCYTES # (AUTO) 4.6 X 10^3 (1.0-4.0); LYMPHOCYTES % (AUTO) 54 % (12-44); MEAN CORPUSCULAR HEMOGLOBIN 30 PG (25-34); MEAN CORPUSCULAR HGB CONC 36 G/DL (32-36); MEAN CORPUSCULAR VOLUME 83 FL (80-99); MEAN PLATELET VOLUME 10.4 FL (7.4-10.4); MONOCYTES # (AUTO) 0.8 X 10^3 (0.0-1.0); MONOCYTES % (AUTO) 10 % (0-12); NEUTROPHILS # (AUTO) 2.9 X 10^3 (1.8-7.8); NEUTROPHILS % (AUTO) 34 % (42-75); PLATELET COUNT 465 10^3/uL (130-400); RED CELL DISTRIBUTION WIDTH 13.4 % (10.0-14.5); WHITE BLOOD COUNT 8.6 10^3/uL (4.3-11.0)
[2019-12-22] MEDS ORDERED: meTOprolol 5 MG/5 ML (LOPRESSOR) VIAL ONE (19:46)
[2019-12-22 19:52] LABS: ALANINE AMINOTRANSFERASE 31 U/L (0-55); ALBUMIN 4.8 GM/DL (3.2-4.5); ALKALINE PHOSPHATASE 69 U/L (40-136); BILIRUBIN,TOTAL 0.6 MG/DL (0.1-1.0); BUN/CREATININE RATIO 9; CALCIUM 10.7 MG/DL (8.5-10.1); CARBON DIOXIDE 21 MMOL/L (21-32); CHLORIDE 103 MMOL/L (98-107); CREATININE SERUM 0.82 MG/DL (0.60-1.30); GFR ESTIMATED > 60; GLUCOSE 101 MG/DL (70-105); POTASSIUM 3.3 MMOL/L (3.6-5.0); SODIUM 138 MMOL/L (135-145); TOTAL PROTEIN 7.6 GM/DL (6.4-8.2)
[2019-12-22] MEDS ORDERED: PROMETHAZINE INJ 25 MG/ML (PHENERGAN) AMP IVP ONE (20:00)
[2019-12-22 20:06] LABS: BILIRUBIN,URINE NEGATIVE (NEGATIVE); CLARITY,URINE CLEAR; COLOR,URINE YELLOW; GLUCOSE, URINE (UA) NEGATIVE (NEGATIVE); KETONES,URINE NEGATIVE (NEGATIVE); LEUKOCYTE ESTERASE ,URINE TRACE (NEGATIVE); NITRITE,URINE NEGATIVE (NEGATIVE); PROTEIN,URINE NEGATIVE (NEGATIVE)
[2019-12-22 20:12] LABS: BACTERIA,URINE TRACE /HPF
[2019-12-22 20:16] LABS: AMPHETAMINE SCREEN, URINE NEGATIVE (NEGATIVE); BARBITURATE SCREEN URINE NEGATIVE (NEGATIVE); BENZODIAZEPINES SCREEN URINE NEGATIVE (NEGATIVE); CANNABINOID SCREEN, URINE POSITIVE (NEGATIVE); COCAINE SCREEN URINE NEGATIVE (NEGATIVE); METHADONE STAT NEGATIVE (NEGATIVE); METHAMPHETAMINE SCREEN URINE S POSITIVE (NEGATIVE); OPIATE SCREEN URINE NEGATIVE (NEGATIVE); OXYCODONE STAT NEGATIVE (NEGATIVE); PROPOXYPHENE STAT NEGATIVE (NEGATIVE); TRICYCLIC ANTIDEPRESSANTS SCRE NEGATIVE (NEGATIVE)
[2019-12-22] MEDS ORDERED: RT-ALBUINH IH (20:27)
--- NOTE | 2019-12-22 20:34 | Diagnostic Imaging Report ---
INDICATION: Chest pain. FINDINGS: Frontal view of the chest demonstrates the lungs to be clear. The heart, mediastinum and pulmonary vascularity are normal. IMPRESSION: Negative chest. Dictated by: Dictated on workstation # [id number]
[2019-12-22] MEDS ORDERED: RX-ALBUTEROL INHALER (VENTOLIN HFA) 18 GM IH ONE (20:35)
[2019-12-22] MEDS ORDERED: RX-ALBUTEROL INHALER (VENTOLIN HFA) 18 GM IH STA (20:37)
[2019-12-22] MEDS ORDERED: meTOprolol 5 MG/5 ML (LOPRESSOR) VIAL IV ONE (20:45)
[2019-12-22 20:49] VITALS: BP 144/84
== END 2019-12-22 21:00 | disposition home or self-care (01) ==
LOC: EDUNIT# 19:14 → ER 19:15
DX: F41.9 Anxiety disorder, unspecified (principal); J45.909 Unspecified asthma, uncomplicated; I48.0 Paroxysmal atrial fibrillation; K21.9 Gastro-esophageal reflux disease without esophagitis; F17.210 Nicotine dependence, cigarettes, uncomplicated; Z82.49 Family history of ischemic heart disease and other diseases of the circulatory system
CPT/HCPCS: 36415; 71045; 80053; 80306; 81000; 84484; 84703; 85025; 85379; 86141; 93005

== ENCOUNTER 2020-04-23 10:01 | Emergency (ER) | payer MEDICARE, MEDICAID ==
[~2020-04-23] VITALS: Ht 165.1 cm; Wt 104.3 kg
[~2020-04-23 10:01] MED LIST changes: -CETI10TA21 PO; +CETI10TA49 PO; +RT-ALBUINH IH
--- NOTE | 2020-04-23 10:51 | ED Respiratory ---
General Chief Complaint: Respiratory Problems Stated Complaint: SOB Nursing Triage Note: PT BROUGHT IN BY [facility] FROM HOME WITH COMPLAINT OF CP, SOA, COUGH, SORE THROAT AND FEVER. STATES SORE THROAT, COUGH STARTED YESTERDAY AND SHE WOKE UP WITH CP/SOA THIS MORNING. Source: patient Exam Limitations: no limitations History of Present Illness Date Seen by Provider: Apr 23, 2020 Time Seen by Provider: 10:28 Initial Comments Patient presents ER by a ambulance from home with chief complaint that she started having some cough and sore throat yesterday and today she feels like her chest hurts when she coughs and feels a little short of breath. She does have a history of asthma and uses her ProAir but has not used any today. Allergies and Home Medications Allergies Coded Allergies: No Known Drug Allergies (Unverified , 05/26/16) Home Medications Albuterol Sulfate 1 Puff Puff, 2 PUFF IH Q4H PRN for WHEEZING 1 PUFF = 90 MCG Prescribed by: SHAHRZAD QUINTANA on 12/22/192026 Albuterol Sulfate 1 Puff Puff, 2 PUFF IH Q4H PRN for WHEEZING 1 PUFF = 90 MCG Prescribed by: TOMY BROWN on 04/23/20 1148 Cetirizine HCl 10 Mg Tablet, 10 MG PO DAILY, (Reported) Cyanocobalamin/Folic Acid 1 Each Tablet, 1 EACH PO DAILY, (Reported) Docusate Sodium 100 Mg Capsule, 100 MG PO BID, (Reported) Melatonin 3 Mg Tablet, 3 MG PO HS, (Reported) Omeprazole 20 Mg Capsule.dr, 20 MG PO DAILY, (Reported) Polyethylene Glycol 3350 17 Gm Powd.pack, 17 GM PO DAILY, (Reported) Patient Home Medication List Home Medication List Reviewed: Yes Review of Systems Review of Systems Constitutional: No chills, No diaphoresis EENTM: No ear discharge, No ear pain Respiratory: cough, short of breath Cardiovascular: No edema, No Hx of Intervention Gastrointestinal: No abdominal pain, No constipation, No diarrhea, No nausea Genitourinary: No discharge, No dysuria All Other Systems Reviewed Negative Unless Noted: Yes Past Eivfvfw-Nhfmls-Cqoccs Hx Patient Social History Alcohol Use: Occasionally Uses Number of Drinks Today: AA Alcohol Beverage of Choice: Beer Recreational Drug Use: No Smoking Status: Current Everyday Smoker Type Used: Cigarettes 2nd Hand Smoke Exposure: Yes Recent Foreign Travel: No Contact w/Someone Who Travel: No Recent Infectious Disease Expo: No Recent Hopitalizations: No Immunizations Up To Date Tetanus Booster (TDap): Unknown Date of Influenza Vaccine: Feb 06, 2020 Past Medical History Surgeries: Yes Orthopedic Respiratory: Yes Asthma Cardiac: Yes (SVT) Irregular Heartbeat Neurological: No 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 oz. 95.500656nu; 38.00 BMI Method:Stated General Appearance: WD/WN, no apparent distress Eyes: Bilateral Eye Normal Inspection, Bilateral Eye PERRL, Bilateral Eye EOMI HEENT: PERRL/EOMI, normal ENT inspection, TMs normal, pharynx normal Neck: full range of motion, supple, normal inspection Respiratory: lungs clear, normal breath sounds, no respiratory distress, no accessory muscle use Cardiovascular: normal peripheral pulses, regular rate, rhythm Gastrointestinal: normal bowel sounds, non tender, soft Neurologic/Psychiatric: alert, normal mood/affect, oriented x 3 Progress/Results/Core Measures Suspected Sepsis Recent Fever Within 48 Hours: Yes Infection Criteria Present: None New/Unexplained Altered Menta: No Sepsis Screen: No Definite Risk SIRS Temperature: Pulse: 95 Respiratory Rate: 22 Blood Pressure 138 /91 Mean: 107 Results/Orders Lab Results Laboratory Tests Test 04/23/20 10:40 04/23/20 11:35 04/23/20 11:40 Range/Units Coronavirus 2019 (CHERIE) Negative Negative Urine Color YELLOW Urine Clarity CLEAR Urine pH 6.5 5-9 Urine Specific [place] 1.025 H 1.016-1.022 Urine Protein TRACE H NEGATIVE Urine Glucose (UA) NEGATIVE NEGATIVE Urine Ketones NEGATIVE NEGATIVE Urine Nitrite NEGATIVE NEGATIVE Urine Bilirubin NEGATIVE NEGATIVE Urine Urobilinogen 0.2 < = 1.0 MG/DL Urine Leukocyte Esterase 1+ H NEGATIVE Urine RBC (Auto) TRACE-I NEGATIVE Urine RBC 5-10 H /HPF Urine WBC 25-50 H /HPF Urine Squamous Epithelial Cells 10-25 H /HPF Urine Crystals NONE /LPF Urine Bacteria FEW H /HPF Urine Casts NONE /LPF Urine Mucus SMALL H /LPF Urine Culture Indicated YES Micro Results Microbiology 04/23/20 Influenza Types A,B Antigen (AMILCAR) - Final, Complete My Orders Orders - TOMY BROWN Ekg Tracing (04/23/20 10:11) Continuous Ekg Monitoring (04/23/20 10:11) Influenza A And B Antigens (04/23/20 10:11) Covid 19 Inhouse Test (04/23/20 10:11) Ua Culture If Indicated (04/23/20 10:11) Urine Bedside (04/23/20 10:11) Coronavirus Sars-Cov-2 So 2018 (04/23/20 11:35) Urine Culture (04/23/20 11:40) Vital Signs/I&O 04/23/20 10:01 Pulse 95 Resp 22 B/P (MAP) 138/91 (107) Pulse Ox 100 O2 Delivery Room Air Capillary Refill : Less Than 3 Seconds Blood Pressure Mean: 107 Progress Note : Time: 11:46 Progress Note Aseptic vital signs, nonacute appearance. Clear sounding lung sounds. We will provide her with a prescription for a ProAir if she needs it since she says that her ProAir is at someone else's trailer right now. We did perform a rapid influenza and Covid which were both negative. We will send out for a send out Covid and allow her to follow-up at home on quarantine. Patient complains of dysuria so we will get a urinalysis. Departure Impression Primary Impression: Bronchitis Additional Impressions: Person under investigation for COVID-19 UTI (urinary tract infection) Qualified Codes: N30.01 - Acute cystitis with hematuria Disposition: 01 HOME, SELF-CARE Condition: Stable Departure-Patient Inst. Decision time for Depature: 11:47 Referrals: HIGINIO ENGEL MD (PCP/Family) Primary Care Physician Patient Instructions: Coronavirus Disease 2019 (COVID-19) Tests, Acute Bronchitis, Adult (DC) Add. Discharge Instructions: Drink plenty of fluids and use Mucinex to keep your secretions loose. Tylenol and ibuprofen as necessary for body aches or fever. The result of your COVID-19 swab should be called you in the next 2 to 3 days. If the test is positive you need to be on quarantine until 05/03/2020. You also need to be 3 days symptom-free before leaving quarantine. If your test is negative then you merely need to be 3 days symptom-free before leaving quarantine. Return to the ER for significant worsening shortness of breath. A ProAir inhaler was sent to the pharmacy if you need a refill. All discharge instructions reviewed with patient and/or family. Voiced understanding. Scripts Nitrofurantoin Monohyd/M-Cryst (Macrobid 100 mg Capsule) 100 Mg Capsule 1 TAB PO BID for 7 Days, #14 CAP 0 Refills Prov: TOMY BROWN 04/23/20 Albuterol Sulfate (PROAIR HFA) 1 Puff Puff 2 PUFF IH Q4H PRN for WHEEZING, #1 EA 0 Refills 1 PUFF = 90 MCG Prov: TOMY BROWN 04/23/20 TOMY BROWN Apr 23, 2020 10:50
[2020-04-23] MEDS ORDERED: RT-ALBUINH IH (11:48)
[2020-04-23 11:50] LABS: BILIRUBIN,URINE NEGATIVE (NEGATIVE); CLARITY,URINE CLEAR; COLOR,URINE YELLOW; GLUCOSE, URINE (UA) NEGATIVE (NEGATIVE); KETONES,URINE NEGATIVE (NEGATIVE); LEUKOCYTE ESTERASE ,URINE 1+ (NEGATIVE); NITRITE,URINE NEGATIVE (NEGATIVE); PH,URINE 6.5 (5-9); PROTEIN,URINE TRACE (NEGATIVE)
[2020-04-23 11:59] LABS: BACTERIA,URINE FEW /HPF; WBC,URINE 25-50 /HPF
[2020-04-23] MEDS ORDERED: NITR-65 PO (12:06)
[2020-04-23 12:10] VITALS: BP 125/86
== END 2020-04-23 12:10 | disposition home or self-care (01) ==
LOC: EDUNIT# 10:05 → ER 10:07
DX: J40 Bronchitis, not specified as acute or chronic (principal); N39.0 Urinary tract infection, site not specified; K21.9 Gastro-esophageal reflux disease without esophagitis; F17.210 Nicotine dependence, cigarettes, uncomplicated; Z20.828 Contact with and (suspected) exposure to other viral communicable diseases; Z82.49 Family history of ischemic heart disease and other diseases of the circulatory system
CPT/HCPCS: 81000; 84703; 87077; 87088; 87635; 87804; 93005

== ENCOUNTER 2020-04-28 22:34 | Emergency (ER) | payer MEDICARE, MEDICAID ==
[~2020-04-28] VITALS: Ht 165.1 cm; Wt 104.3 kg
[~2020-04-28 22:34] MED LIST changes: +NITR-65 PO
[2020-04-28 22:35] VITALS: BP 155/94
--- NOTE | 2020-04-28 22:44 | ED GI ---
General Stated Complaint: VOMITTING Source of Information: Patient Exam Limitations: No Limitations History of Present Illness Date Seen by Provider: Apr 28, 2020 Time Seen by Provider: 22:28 Initial Comments Patient presents ER by EMS from home with chief complaint that she had some red- tinged emesis tonight related to her bronchitis. She has had 2 - Covid screens when she was seen 3 days ago in the ER. She says the nausea is new and does not have anything for that. She also started taking antibiotics for her UTI and does not feel it has gotten any better. She has not had anything to eat all day but she was drinking wine coolers, red all night. No history of gastritis, PUD, GERD, EGD. Allergies and Home Medications Allergies Coded Allergies: No Known Drug Allergies (Unverified , 05/26/16) Home Medications Albuterol Sulfate 1 Puff Puff, 2 PUFF IH Q4H PRN for WHEEZING 1 PUFF = 90 MCG Prescribed by: SHARHZAD QUINTANA on 12/22/192026 Albuterol Sulfate 1 Puff Puff, 2 PUFF IH Q4H PRN for WHEEZING 1 PUFF = 90 MCG Prescribed by: TOMY BROWN on 04/23/20 1148 Cetirizine HCl 10 Mg Tablet, 10 MG PO DAILY, (Reported) Cyanocobalamin/Folic Acid 1 Each Tablet, 1 EACH PO DAILY, (Reported) Docusate Sodium 100 Mg Capsule, 100 MG PO BID, (Reported) Melatonin 3 Mg Tablet, 3 MG PO HS, (Reported) Nitrofurantoin Monohyd/M-Cryst 100 Mg Capsule, 1 TAB PO BID Prescribed by: TOMY BROWN on 04/23/20 1206 Omeprazole 20 Mg Capsule.dr, 20 MG PO DAILY, (Reported) Polyethylene Glycol 3350 17 Gm Powd.pack, 17 GM PO DAILY, (Reported) Patient Home Medication List Home Medication List Reviewed: Yes Review of Systems Review of Systems Constitutional: No chills EENTM: No Blurred Vision, No Double Vision Respiratory: Cough; Denies Shortness of Air Cardiovascular: Denies Chest Pain, Denies Lightheadedness Gastrointestinal: See HPI; Denies Constipated, Denies Diarrhea; Nausea, Vomiting Genitourinary: Burning; Denies Discharge Musculoskeletal: No back pain, No joint pain All Other Systems Reviewed Negative Unless Noted: Yes Past Gaexkwl-Hylmex-Mfrunf Hx Patient Social History Alcohol Use: Regular Use Alcohol Beverage of Choice: Beer Type Used: Cigarettes 2nd Hand Smoke Exposure: Yes Recent Hopitalizations: No Immunizations Up To Date Tetanus Booster (TDap): Unknown Date of Influenza Vaccine: Feb 06, 2020 Past Medical History Surgeries: Yes Orthopedic Respiratory: Yes Asthma Cardiac: Yes (SVT) Irregular Heartbeat Neurological: No 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 oz. 95.979318lw; 38.00 BMI Method:Stated General Appearance: WD/WN, no apparent distress HEENT: PERRL/EOMI, pharynx normal Neck: full range of motion, supple, normal inspection Respiratory: lungs clear, normal breath sounds, no respiratory distress, no accessory muscle use Cardiovascular: normal peripheral pulses, regular rate, rhythm Peripheral Pulses: 2+ Radial Pulses (R), 2+ Radial Pulses (L) Gastrointestinal: normal bowel sounds, non tender, soft Extremities: normal range of motion, non-tender, normal capillary refill Neurologic/Psychiatric: alert, normal mood/affect, oriented x 3 Skin: normal color, warm/dry Progress/Results/Core Measures Results/Orders My Orders Orders - TOMY BROWN Ondansetron Oral Dissolve Tab (Zofran (04/28/20 22:45) Progress Progress Note : Time: 22:47 Progress Note EMS reports they could barely see any red tinge in the stool where she vomited. Most likely her red wine Coolers would explain her findings. We will give her some ondansetron and a prescription for some. We will also recommend she stop drinking tonight. Finally we will put her out on Flagyl as she grew out Gardnerella in her contaminated urinalysis. Suspect BV Departure Impression Primary Impression: Bacterial vaginitis Additional Impressions: Red colored emesis Nausea & vomiting Qualified Codes: R11.2 - Nausea with vomiting, unspecified Disposition: 01 HOME, SELF-CARE Condition: Stable Departure-Patient Inst. Decision time for Depature: 22:49 Referrals: HIGINIO ENGEL MD (PCP/Family) Primary Care Physician Patient Instructions: Vaginitis Add. Discharge Instructions: Stop taking the antibiotic prescribed. Start taking the Flagyl with food twice a day for the next week. Expect improvement of your urinary symptoms over the next 3 to 4 days. Drink plenty of fluids such as water. Stay away from fluids with red food dye in them for now. If you continue to have nausea you may use 1 tablet of ondansetron under the tongue every 6 hours as necessary. If this persists for more than a week then you should follow-up with your primary care doctor. Scripts Metronidazole (Flagyl) 500 Mg Tablet 500 MG PO BID for 7 Days, #14 TAB 0 Refills Prov: TOMY BROWN 04/28/20 Ondansetron (Ondansetron Odt) 4 Mg Tab.rapdis 4 MG PO Q6H PRN for NAUSEA/VOMITING, #8 TAB 0 Refills Prov: TOMY BROWN 04/28/20 TOMY BROWN Apr 28, 2020 22:44
[2020-04-28] MEDS ORDERED: ONDANSETRON 4 MG (ZOFRAN) ORAL DISSOLVE TAB PO ONE (22:45)
[2020-04-28] MEDS ORDERED: METR500T PO (22:51)
[2020-04-28] MEDS ORDERED: ONDA4TAB11 PO (22:51)
== END 2020-04-28 23:03 | disposition home or self-care (01) ==
LOC: EDUNIT# 22:34 → ER 22:35
DX: N76.0 Acute vaginitis (principal); R11.2 Nausea with vomiting, unspecified; J45.909 Unspecified asthma, uncomplicated; K21.9 Gastro-esophageal reflux disease without esophagitis; Z82.49 Family history of ischemic heart disease and other diseases of the circulatory system; Z77.22 Contact with and (suspected) exposure to environmental tobacco smoke (acute) (chronic)
CPT/HCPCS: 99283

== ENCOUNTER 2022-02-22 00:46 | Emergency (ER) | payer OTHER, MEDICAID ==
[~2022-02-22 00:46] MED LIST changes: +METR500T PO; +ONDA4TAB11 PO
[2022-02-22] MEDS ORDERED: IBUPROFEN 600 MG (MOTRIN) TAB PO ONE (01:00)
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
[2022-02-22 02:21] VITALS: BP 159/98
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
== END 2022-02-22 02:24 | disposition home or self-care (01) ==
LOC: EDUNIT# 00:46 → ER 00:50
DX: S20.211A Contusion of right front wall of thorax, initial encounter (principal); F17.210 Nicotine dependence, cigarettes, uncomplicated; V48.6XXA Car passenger injured in noncollision transport accident in traffic accident, initial encounter; Y92.410 Unspecified street and highway as the place of occurrence of the external cause
CPT/HCPCS: 71046

== ENCOUNTER → 2022-02-28 | Outpatient (CLI) | payer OTHER, MEDICAID ==
--- NOTE | 2022-02-28 15:19 | Diagnostic Imaging Report ---
EXAMINATION: Magnetic resonance imaging of the left shoulder without contrast. DATE: February 28, 2022. COMPARISON: None. HISTORY: 31-year-old male, chronic left shoulder pain. TECHNIQUE: Magnetic Resonance Imaging sequences were performed of the shoulder without contrast. FINDINGS: ROTATOR CUFF, LIGAMENTS, TENDONS, AND MUSCLES: There is supraspinatus tendinopathy. Infraspinatus and teres minor tendons are intact. The subscapularis tendon is intact. There is normal rotator cuff muscle bulk and signal. LONG HEAD OF BICEPS: The biceps labral attachment and long head of the biceps tendon is intact. The long head of the biceps tendon is normally positioned within the bicipital groove. GLENOHUMERAL JOINT: The humeral head is well positioned relative to the glenoid. The labrum is grossly intact. There is no identified paralabral cyst. The articular cartilage is grossly intact. There is no joint effusion. ACROMIOCLAVICULAR JOINT: The acromioclavicular joint is normally aligned. The coracoclavicular and coracoacromial ligaments are intact. There are no degenerative changes of the acromioclavicular joint. BONE: There is no os acromiale. There is no Hill-Sachs deformity. There is no acute fracture, bone contusion, or evidence of osteonecrosis. BURSAE AND SOFT TISSUES: The bursae and soft tissue surrounding the shoulder are unremarkable. IMPRESSION: 1. Supraspinatus tendinopathy. Negative for rotator cuff tendon tear. 2. Intact proximal long head of the biceps tendon. 3. Intact acromioclavicular joint. 4. Grossly intact labrum and unremarkable additional glenohumeral joint assessment. 5. No acute fracture, bone contusion, or other notable bone marrow signal abnormality. Dictated by: Dictated on workstation # [id number]
== END ==
LOC: RAD 12:30
PROVIDERS: ATTEND Student in an Organized Health Care Education/Training Program
DX: M67.814 Other specified disorders of tendon, left shoulder (principal)
CPT/HCPCS: 73221